=== PATIENT | female | born 1955 | race Caucasian/White ===

== ENCOUNTER 2018-06-05 06:17 | Day surgery (SDC) | payer BC, SELFPAY ==
--- NOTE | 2018-06-03 09:06 | W.PIPPEYE ---
History of Present Illness Chief Complaint: Progressive decreased vision, right eye Narrative: The patient is a 62-year-old lady with history of progressive decreased vision in both eyes at both distance and near, right eye worse than left. She has significant significant difficulty reading and trouble focusing. On examination she was noted to have moderate nuclear and cortical cataracts in both eyes with posterior subcapsular cataract of the right eye with corrected visual acuity of 20/100 in the right eye. The option of cataract surgery was offered to the patient and she wished to proceed. NOTE: The Chief Complaint, HPI, Past Medical History, Past Surgical History, Family History, Social History, Medications, and complete Ophthalmic Exam with detailed Assessment and Plan have already been documented in the patient's outpatient ophthalmic record and are not covered again in detail here. [facility] Social History Smoking/Tobacco Use Status: Never Surgical History Abdominal hysterectomy Cholecystectomy Ligation of fallopian tube Meds Home Medications Medication Instructions Recorded Confirmed Type albuterol sulfate [Ventolin HFA] 2 puff INHALATION PRN PRN 09/24/16 06/01/18 History fluticasone-salmeterol [Advair HFA] 2 puff INHALATION BID PRN PRN 09/24/16 06/01/18 History magnesium oxide 250 mg PO DAILY PRN 09/24/16 06/01/18 History multivitamin 1 ea PO DAILY 09/24/16 06/01/18 History loratadine 10 mg PO DAILY PRN PRN 08/24/17 06/01/18 History acetaminophen [Masophen] 1,000 mg PO TID PRN #120 tablet 09/02/17 06/01/18 Rx naloxone [Narcan] 4 mg NS DIRECTED #2 spray 09/02/17 09/04/17 Rx B complex with C#20-folic acid 1 cap PO DAILY 06/01/18 06/01/18 History ibuprofen 200 - 400 mg PO PRN PRN 06/01/18 06/01/18 History Allergies Allergy/AdvReac Type Severity Reaction Status Date / Time Penicillins Allergy Intermediate Skin Rash Unverified 06/01/18 09:34 codeine AdvReac Intermediate Nausea Unverified 06/01/18 09:34 Exam OCULAR EXAM:: Visual acuity at distance: Corrected visual acuity right eye 20/100, left eye 20/20 Pupils: Pupils equal, round, and reactive without afferent pupillary defect IOP: 13 OD 12 OS Extraocular Motility: Normal Pertinent Slit Lamp Findings: Significant for pupils dilating to 6 mm OU. 1+ cortical cataract with significant anterior cortical opacity is present in the right eye with 2+ posterior subcapsular cataract. The left eye shows 1+ nuclear and cortical cataract. Dilated Funduscopic Examination: Disc cupping is 0.3 OU with good color. Normal fundus BRIGHTNESS ACUITY TESTING (BAT):: Off right eye 20/100 Low: 20/60 Medium: 20/200 High: Less than 20/400 Assessment and Plan (1) Posterior subcapsular age-related cataract, right eye: Current visit: No Status: Acute Assessment: Visually significant cataract, right eye. Plan: Cataract extraction with intraocular lens implantation, right eye (2) Cortical cataract of right eye: Current visit: No Status: Acute Assessment: Visually significant cataract, right eye. Plan: Cataract extraction with intraocular lens implantation, right eye Note: NOTE:: The details of the planned surgery, including the risks, indications,limitations,expectations,outcome and possible complications were explained to the patient. The patient understands the complications including, but not limited to: infection, hemorrhage, posterior dislocation of the lens or nuclear fragments which may require the intervention of a vitreoretinal surgeon, possible loss of the eye, or from anesthetic complications. The patient has been made aware of the option of not having surgery, that vision following surgery may not be equal to that prior to surgery, and that the planned surgery may not achieve the intended results. Following this discussion, which the patient appeared to understand, the patient wishes to proceed with cataract surgery with lens implantation of the affected eye to improve and maximize vision.
--- NOTE | 2018-06-03 09:11 | POEE_ITS ---
History of Present Illness Chief Complaint: Progressive decreased vision, right eye Narrative: The patient is a 62-year-old lady with history of progressive decreased vision in both eyes at both distance and near, right eye worse than left. She has significant significant difficulty reading and trouble focusing. On examination she was noted to have moderate nuclear and cortical cataracts in both eyes with posterior subcapsular cataract of the right eye with corrected visual acuity of 20/100 in the right eye. The option of cataract surgery was offered to the patient and she wished to proceed. NOTE: The Chief Complaint, HPI, Past Medical History, Past Surgical History, Family History, Social History, Medications, and complete Ophthalmic Exam with detailed Assessment and Plan have already been documented in the patient's outpatient ophthalmic record and are not covered again in detail here. [facility] Social History Smoking/Tobacco Use Status: Never Surgical History Abdominal hysterectomy Cholecystectomy Ligation of fallopian tube Meds Home Medications Medication Instructions Recorded Confirmed Type albuterol sulfate [Ventolin HFA] 2 puff INHALATION PRN PRN 09/24/16 06/01/18 History fluticasone-salmeterol [Advair HFA] 2 puff INHALATION BID PRN PRN 09/24/1606/01 History magnesium oxide 250 mg PO DAILY PRN 09/24/16 06/01/18 History multivitamin 1 ea PO DAILY 09/24/16 06/01/18 History loratadine 10 mg PO DAILY PRN PRN 08/24/17 06/01/18 History acetaminophen [Masophen] 1,000 mg PO TID PRN #120 tablet 09/02/17 06/01/18 Rx naloxone [Narcan] 4 mg NS DIRECTED #2 spray 09/02/17 09/04/17 Rx B complex with C#20-folic acid 1 cap PO DAILY 06/01/18 06/01/18 History ibuprofen 200 - 400 mg PO PRN PRN 06/01/18 06/01/18 History Allergies Allergy/AdvReac Type Severity Reaction Status Date / Time Penicillins Allergy Intermediate Skin Rash Unverified 06/01/18 09:34 codeine AdvReac Intermediate Nausea Unverified 06/01/18 09:34 Exam OCULAR EXAM:: Visual acuity at distance: Corrected visual acuity right eye 20/ 100, left eye 20/20 Pupils: Pupils equal, round, and reactive without afferent pupillary defect IOP: 13 OD 12 OS Extraocular Motility: Normal Pertinent Slit Lamp Findings: Significant for pupils dilating to 6 mm OU. 1+ cortical cataract with significant anterior cortical opacity is present in the right eye with 2+ posterior subcapsular cataract. The left eye shows 1+ nuclear and cortical cataract. Dilated Funduscopic Examination: Disc cupping is 0.3 OU with good color. Normal fundus BRIGHTNESS ACUITY TESTING (BAT):: Off right eye 20/100 Low: 20/60 Medium: 20/200 High: Less than 20/400 Assessment and Plan (1) Posterior subcapsular age-related cataract, right eye: Current visit: No Status: Acute Assessment: Visually significant cataract, right eye. Plan: Cataract extraction with intraocular lens implantation, right eye (2) Cortical cataract of right eye: Current visit: No Status: Acute Assessment: Visually significant cataract, right eye. Plan: Cataract extraction with intraocular lens implantation, right eye Note: NOTE:: The details of the planned surgery, including the risks, indications, limitations,expectations,outcome and possible complications were explained to the patient. The patient understands the complications including, but not limited to: infection, hemorrhage, posterior dislocation of the lens or nuclear fragments which may require the intervention of a vitreoretinal surgeon, possible loss of the eye, or from anesthetic complications. The patient has been made aware of the option of not having surgery, that vision following surgery may not be equal to that prior to surgery, and that the planned surgery may not achieve the intended results. Following this discussion, which the patient appeared to understand, the patient wishes to proceed with cataract surgery with lens implantation of the affected eye to improve and maximize vision.
[2018-06-05 06:33] VITALS: BP 149/88; PULSE 56; RESP 18; TEMP 36.7; O2SAT 98
[2018-06-05] MEDS: Lidocaine 2% Jelly 6 ML SYR (07:31)
[2018-06-05] MEDS: Lidocaine 1% Pres-Free 5 ML VIAL (07:32)
[2018-06-05] MEDS: Balanced Salt Soln.-PLUS 500 ML BAG (07:33)
[2018-06-05] MEDS: Povidone-Iodine Ophth 30 ML BTL ×2 (07:33→07:56)
--- NOTE | 2018-06-05 08:02 | W.PM.DSUDISC ---
Discharge Plan Discharge Details Attending Provider: Oscar Guerin Primary Care Provider: Favian Braga Home Meds and New Rx's Prescriptions: No Action magnesium oxide 250 MG tablet 250 mg PO DAILY RF: 0 loratadine 10 MG tablet 10 mg PO DAILY PRN PRNRF: 0 acetaminophen [Masophen] 500 MG tablet 1,000 mg PO TID PRNQty: 120 RF: 1 naloxone [Narcan] 4 MG spray,non-aerosol 4 mg NS DIRECTED Qty: 2 RF: 0 albuterol sulfate [Ventolin HFA] 8 GM HFA aerosol inhaler 2 puff Inhalation PRN PRNRF: 0 multivitamin 1 EACH capsule 1 ea PO DAILY RF: 0 fluticasone-salmeterol [Advair HFA] 12 GM HFA aerosol inhaler 2 puff Inhalation BID PRN PRNRF: 0 ibuprofen 200 mg Capsule 200 - 400 mg PO PRN PRNRF: 0 B complex with C#20-folic acid 1 mg Capsule 1 cap PO DAILY RF: 0 Discharge Instructions Stand Alone Forms: Post-op Topical Cataract, Milan Kulkarni (DSU) DS: Diagnosis Discharge Diagnosis (1) Posterior subcapsular age-related cataract, right eye: Status: Resolved (2) Cortical cataract of right eye: Status: Resolved
--- NOTE | 2018-06-05 08:03 | W.PM.OP ---
Date of service: 06/05/18 Time of Service: 08:03 Operative Note PRE-OP DIAGNOSIS: Cataract, right eye POST-OP DIAGNOSIS: same SURGEON: Oscar Guerin ANESTHESIA: MAC and local (sub-tenon's anesthetic infiltration) PATHOLOGY: none sent COMPLICATIONS: None Patient was transported to: same day Patient's condition: stable Implants: Joaquim and Joaquim [employer] / [employer] Tecnis ZCB00 Indications: Progressive decreased vision due to cataract, right eye Procedure Description: [] CATARACT SURGERY OPERATIVE REPORT PREOPERATIVE DIAGNOSIS: Cortical/posterior subcapsular cataract, right eye, symptomatic POSTOPERATIVE DIAGNOSIS: Same OPERATION: Cataract extraction using phacoemulsification with posterior chamber intraocular lens implant, right eye. IOL: IOL Regional Owner Operator Truck Driver/Model: J&J Vision / PHUONG Tecnis ZCB00 IOL Power: + +21.0 diopters IOL Serial Number: [id number] Optic Diameter: 6.0mm Haptic/Overall Diameter: 13.0mm PHACO INFO: Nakul Exelonixon Vision System with OZil and Active Fluidics Cumulative Dispersed Energy (CDE): 9.68 seconds SURGEON: Oscar Guerin MD, VERONICA ANESTHESIA: Monitored Anesthesia Care (MAC), with local sub-tenon's anesthetic infiltration COMPLICATIONS: None SPECIMENS: None INDICATIONS FOR PROCEDURE: The patient is a 62-year-old lady who presented with complaints of progressive decreased vision in her right eye. She was noted to have a dense posterior subcapsular cataract with moderate nuclear and cortical cataract with visual acuity of 20/100 in the right eye. The option of cataract surgery was offered to the patient and she wished to proceed. PROCEDURE: The correct surgical eye was identified and marked as the right eye and the pupil was dilated in the preoperative area using mydriatics, cycloplegics, and NSAIDS (except in aspirin allergic patients). The dilated pupil size was 7.5 mm. Oral sedation was administered in the form of an Imprimis MKO Melt (midazolam 3mg/ketamine 25mg/ondansetron 2mg). The patient was brought to the operating room where cardiopulmonary monitoring was instituted and surgical time-out was performed, confirming the correct operative eye and IOL power. Topical anesthesia was administered and ophthalmic povidone-iodine 5% was instilled into the conjunctival fornices. Lidocaine gel was applied to the cornea and the jules-ocular area was prepped with Betadine 10% solution and draped in the usual sterile fashion for intraocular surgery. Steri-strips were used to cover the lashes and lid margins and an adhesive eye drape was placed. Care was taken to isolate the lashes and lid margins under the Steri-strips and adhesive eye drape. A lid speculum was placed between the lids of the operative eye and the Margarita-Yesika operating microscope was maneuvered into position. Kirsty scissors were then used to make a conjunctival buttonhole approximately 6mm posterior to the limbus in the inferonasal quadrant. Blunt dissection was carried out to expose bare sclera, and a blunt-tipped sub-tenon?s anesthesia cannula was introduced and passed posteriorly along the globe where non-preserved plain lidocaine was injected into posterior sub-Tenon?s space. A sideport knife was used to make a paracentesis port at the 7:00 postion and the anterior chamber was filled with Healon GV. A 2.4mm keratome knife was used to create a half-thickness groove at the limbus and then to construct a three-plane near-clear corneal tunnel extending 2.0mm into clear cornea at the 10:00 position. A flap was raised on the anterior capsule and capsulorhexis forceps were used to complete a continuous curvilinear capsulorhexis of 5.0 mm. Balanced salt solution was then used to perform cortical cleaving hydrodissection and nuclear hydrodelineation until the lens could be freely rotated within the capsular bag. The lens nucleus was then disassembled and removed within the capsular bag and iris plane using phacoemulsification. Residual cortical material was removed using the 45-degree angled silicone I/A tip with 0.3mm port. The posterior capsule was carefully polished to remove as much residual lens epithelial cells as safely possible. Extensive capsular polishing was undertaken. There was some residual posterior subcapsular plaque in the 2:00 and 10 o'clock position outside of the visual axis which could not be safely removed. The capsular bag was then inflated and the anterior chamber deepened with viscoelastic. The lens implant described above was inserted into the capsular bag using the PHUONG [place] Injector. A Kuglen hook was used to dial the IOL into position. Residual viscoelastic was then removed first from posterior to the IOL, then from the anterior chamber using the I/A handpiece. The lens implant was noted to center nicely within the capsular bag. The incisions were stromally hydrated, and the anterior chamber was reformed using BSS. Then 0.4cc of moxifloxacin 1.5mg/ml were injected into the capsular bag and anterior chamber. The incisions were checked with a Weck spear and found to be secure. Several drops of ophthalmic povidone-iodine 5% were then applied to the eye followed by two drops of Imprimis combination moxifloxacin/dexamethasone solution. The drapes were removed and a clear plastic protective eye shield was placed over the eye. The patient was then returned to Same Day Surgery in stable condition.
--- NOTE | 2018-06-05 08:06 | ROE_ITS ---
Date of service: 06/05/18 Time of Service: 08:03 Operative Note PRE-OP DIAGNOSIS: Cataract, right eye POST-OP DIAGNOSIS: same SURGEON: Oscar Guerin ANESTHESIA: MAC and local (sub-tenon's anesthetic infiltration) PATHOLOGY: none sent COMPLICATIONS: None Patient was transported to: same day Patient's condition: stable Implants: Joaquim and Joaquim Vision / [employer] Tecnis ZCB00 Indications: Progressive decreased vision due to cataract, right eye Procedure Description: [] CATARACT SURGERY OPERATIVE REPORT PREOPERATIVE DIAGNOSIS: Cortical/posterior subcapsular cataract, right eye, symptomatic POSTOPERATIVE DIAGNOSIS: Same OPERATION: Cataract extraction using phacoemulsification with posterior chamber intraocular lens implant, right eye. IOL: IOL Head Of Strategy/Model: J&J Vision / PHUONG Tecnis ZCB00 IOL Power: + +21.0 diopters IOL Serial Number: [id number] Optic Diameter: 6.0mm Haptic/Overall Diameter: 13.0mm PHACO INFO: Nakul Silver Curveon Vision System with OZil and Active Fluidics Cumulative Dispersed Energy (CDE): 9.68 seconds SURGEON: Oscar Guerin MD, VERONICA ANESTHESIA: Monitored Anesthesia Care (MAC), with local sub-tenon's anesthetic infiltration COMPLICATIONS: None SPECIMENS: None INDICATIONS FOR PROCEDURE: The patient is a 62-year-old lady who presented with complaints of progressive decreased vision in her right eye. She was noted to have a dense posterior subcapsular cataract with moderate nuclear and cortical cataract with visual acuity of 20/100 in the right eye. The option of cataract surgery was offered to the patient and she wished to proceed. PROCEDURE: The correct surgical eye was identified and marked as the right eye and the pupil was dilated in the preoperative area using mydriatics, cycloplegics, and NSAIDS (except in aspirin allergic patients). The dilated pupil size was 7.5 mm. Oral sedation was administered in the form of an Imprimis MKO Melt (midazolam 3mg/ketamine 25mg/ondansetron 2mg). The patient was brought to the operating room where cardiopulmonary monitoring was instituted and surgical time-out was performed, confirming the correct operative eye and IOL power. Topical anesthesia was administered and ophthalmic povidone-iodine 5% was instilled into the conjunctival fornices. Lidocaine gel was applied to the cornea and the jules-ocular area was prepped with Betadine 10% solution and draped in the usual sterile fashion for intraocular surgery. Steri-strips were used to cover the lashes and lid margins and an adhesive eye drape was placed. Care was taken to isolate the lashes and lid margins under the Steri-strips and adhesive eye drape. A lid speculum was placed between the lids of the operative eye and the Margarita-Yesika operating microscope was maneuvered into position. Kirsty scissors were then used to make a conjunctival buttonhole approximately 6mm posterior to the limbus in the inferonasal quadrant. Blunt dissection was carried out to expose bare sclera, and a blunt-tipped sub-tenon? s anesthesia cannula was introduced and passed posteriorly along the globe where non-preserved plain lidocaine was injected into posterior sub-Tenon?s space. A sideport knife was used to make a paracentesis port at the 7:00 postion and the anterior chamber was filled with Healon GV. A 2.4mm keratome knife was used to create a half-thickness groove at the limbus and then to construct a three-plane near-clear corneal tunnel extending 2.0mm into clear cornea at the 10:00 position. A flap was raised on the anterior capsule and capsulorhexis forceps were used to complete a continuous curvilinear capsulorhexis of 5.0 mm. Balanced salt solution was then used to perform cortical cleaving hydrodissection and nuclear hydrodelineation until the lens could be freely rotated within the capsular bag. The lens nucleus was then disassembled and removed within the capsular bag and iris plane using phacoemulsification. Residual cortical material was removed using the 45-degree angled silicone I/A tip with 0.3mm port. The posterior capsule was carefully polished to remove as much residual lens epithelial cells as safely possible. Extensive capsular polishing was undertaken. There was some residual posterior subcapsular plaque in the 2:00 and 10 o'clock position outside of the visual axis which could not be safely removed. The capsular bag was then inflated and the anterior chamber deepened with viscoelastic. The lens implant described above was inserted into the capsular bag using the PHUONG [place] Injector. A Kuglen hook was used to dial the IOL into position. Residual viscoelastic was then removed first from posterior to the IOL, then from the anterior chamber using the I/A handpiece. The lens implant was noted to center nicely within the capsular bag. The incisions were stromally hydrated , and the anterior chamber was reformed using BSS. Then 0.4cc of moxifloxacin 1.5mg/ml were injected into the capsular bag and anterior chamber. The incisions were checked with a Weck spear and found to be secure. Several drops of ophthalmic povidone-iodine 5% were then applied to the eye followed by two drops of Imprimis combination moxifloxacin/dexamethasone solution. The drapes were removed and a clear plastic protective eye shield was placed over the eye. The patient was then returned to Same Day Surgery in stable condition.
[2018-06-05 08:25] VITALS: BP 132/86; PULSE 64; RESP 16; TEMP 36.3; O2SAT 96
== END 2018-06-05 08:32 ==
LOC: SUR 06:17
PROVIDERS: PCP Internal Medicine; Visit Provider Ophthalmology
PROC: (CPT 66984; principal; 2018-06-05 07:30)
DX: H25.011 Cortical age-related cataract, right eye (principal); H25.041 Posterior subcapsular polar age-related cataract, right eye
CPT/HCPCS: 66984; V2632

== ENCOUNTER 2018-08-08 22:18 | Outpatient (REF) | payer BC, SELFPAY ==
[2018-08-08 22:39] LABS: ALT 29 U/L (12-78); AST 23 U/L (15-37); BUN 26 mg/dL (7-18); CREATININE 0.83 mg/dL (0.55-1.02); Calcium 9.6 mg/dL (8.5-10.1); Chloride 100 mmol/L (98-107); Cholesterol 182 mg/dL (50-200); Glucose 76 mg/dL (70-100); HDL Cholesterol 57 mg/dL (40-60); LDL CHOLESTEROL 113 mg/dL (<100); Potassium 4.1 mmol/L (3.5-5.1); Sodium 138 mmol/L (136-145); Triglyceride 64 mg/dL (30-150)
== END 2018-08-08 22:38 ==
LOC: NCHCN 22:18
PROVIDERS: PCP Internal Medicine; Visit Provider Nurse Practitioner Family
DX: Z00.00 Encounter for general adult medical examination without abnormal findings (principal); Z13.228 Encounter for screening for other metabolic disorders; Z13.220 Encounter for screening for lipoid disorders
CPT/HCPCS: 80048; 80061; 83721; 84450; 84460

== ENCOUNTER 2018-08-16 00:48 | Outpatient (CLI) | payer BC, SELFPAY ==
--- NOTE | 2018-08-16 16:30 | DI.MAMMO_ITS ---
SYMPTOMS/DIAGNOSIS: SCREENING MAMMOGRAMS: Mammograms were interpreted according to the usual protocol including computer analysis with CAD system, tomosynthesis and C view imaging. Comparison is with the prior examinations. No suspicious masses or microcalcifications are seen. There is no definite evidence of malignancy. IMPRESSION: Negative mammogram. Routine screening is recommended. Category 1, breast density B. MQSA ASSESSMENT OF FINDINGS: Negative. Category 1. Patient will receive a letter notifying them of these results. BI-RADS category B. There are scattered areas of fibroglandular density.
== END 2018-08-16 01:08 ==
PROVIDERS: PCP Internal Medicine; Visit Provider Nurse Practitioner Family
DX: Z12.31 Encounter for screening mammogram for malignant neoplasm of breast (principal)
CPT/HCPCS: 77063; 77067

== ENCOUNTER 2018-08-23 10:34 | Outpatient (CLI) | payer BC, SELFPAY ==
--- NOTE | 2018-08-23 10:24 | DI.RAD_ITS ---
SYMPTOMS/DIAGNOSIS: 1 YR F/U RT TKR RIGHT KNEE: The patient is status post right TKR. The prosthesis and surrounding bone intact with no interval change when compared with the prior study of 09/16/17.
== END 2018-08-23 10:54 ==
PROVIDERS: PCP Internal Medicine; Visit Provider Student in an Organized Health Care Education/Training Program
DX: M17.11 Unilateral primary osteoarthritis, right knee (principal); Z96.651 Presence of right artificial knee joint; Z47.1 Aftercare following joint replacement surgery
CPT/HCPCS: 73560

== ENCOUNTER 2019-01-09 13:53 | Outpatient (REF) | payer BC, SELFPAY | END 2019-01-09 14:13 | LOC: NCHCN 13:53 | PROVIDERS: PCP Internal Medicine; Visit Provider Nurse Practitioner Family | DX: N89.8 Other specified noninflammatory disorders of vagina (principal) | CPT/HCPCS: 87480; 87510; 87660 ==

== ENCOUNTER 2020-07-10 13:51 | Outpatient (REF) | payer MEDICARE, BC, SELFPAY ==
[2020-07-10 21:43] LABS: HCT 43.6 % (36.0-46.0); HGB 14.3 g/dL (11.2-15.7); MCH 30.4 pg (27.0-33.0); MCHC 32.8 % (32.0-36.0); MCV 92.6 fL (80-95); MPV 10.2 fL (8.0-11.0); Platelet Count 380 10^3/uL (130-400); RBC 4.71 10^6/uL (3.93-5.22); RDW 12.8 % (11.7-14.6); RDW-SD 43.8 fL; WBC 8.17 10^3/uL (4.4-10.8)
[2020-07-10 22:16] LABS: ALT 22 U/L (14-59); AST 16 U/L (15-37); Calculated LDL 124 mg/dL (<100); Cholesterol 196 mg/dL (<200); HDL Cholesterol 62 mg/dL (40-60); Triglyceride 50 mg/dL (<150)
== END 2020-07-10 14:11 ==
LOC: NCHCN 13:51
PROVIDERS: PCP Internal Medicine; Visit Provider Nurse Practitioner Family
DX: Z00.00 Encounter for general adult medical examination without abnormal findings (principal)
CPT/HCPCS: 80061; 85027; 84450; 84460

== ENCOUNTER 2020-08-06 08:51 | Emergency (ER) | payer MEDICARE, BC, SELFPAY ==
[2020-08-06] VITALS (66 sets, daily range): BP systolic 127–179; BP diastolic 47–90; PULSE 40–56; RESP 7–23; TEMP 36.3; O2SAT 92–100
--- NOTE | 2020-08-06 08:45 | RT.EKG_ITS ---
APPROVED REPORT Exam: Resting ECG Patient Location: E HR:42 bpm ECG Measurements Heart Rate 42 AXIS IL 222 P 47 QRSd 80 QRS -18 QT 509 T 51 QTc 427 Conclusion Sinus bradycardia...rate< 60 Borderline prolonged IL interval...IL >222, V-rate 30- 49 I have reviewed and interpreted ECG and agree with software generated interpretation.
--- NOTE | 2020-08-06 08:52 | ED.GENADUL_ITS ---
Discharge Plan Disposition Patient Disposition: HOME Condition: Improving Discharge Details Clinical Impression: Vomiting and diarrhea, UTI (urinary tract infection), Bradycardia Primary Care Provider: Favian Braga ED Provider: Carissa Nelson Home Meds and New Rx's Prescriptions: Continued magnesium oxide 250 MG tablet 250 mg PO HS RF: 0 acetaminophen [Masophen] 500 MG tablet 1,000 mg PO TID PRNQty: 120 RF: 1 ascorbic acid (vitamin C) [Vitamin C] 500 mg Tablet 500 mg PO DAILY RF: 0 omeprazole 20 mg capsule,delayed release(DR/EC) 20 mg PO Q OTHER DAY RF: 0 vitamin B complex Tablet 1 tab PO DAILY RF: 0 loratadine 10 mg Tablet 10 mg PO DAILY RF: 0 cholecalciferol (vitamin D3) [Vitamin D3] 25 mcg (1,000 unit) Capsule 25 mcg PO DAILY RF: 0 Advair HFA 115-21 mcg/actuation HFA aerosol inhaler 2 puff INHALATION BID RF: 0 albuterol sulfate [Ventolin HFA] 8 GM HFA aerosol inhaler 2 puff Inhalation PRN PRNRF: 0 Advair HFA 12 GM HFA aerosol inhaler 2 puff Inhalation BID PRN PRNRF: 0 ibuprofen 200 mg Capsule 200 - 400 mg PO PRN PRNRF: 0 Discharge Instructions Instructions: Urinary Tract Infection in Women (ED), Acute Nausea and Vomiting (ED), Acute Diarrhea (ED) Additional Instructions: Drink plenty of fluids and get plenty of rest. Take Zofran as needed and directed for nausea and vomiting. Follow-up with your primary care doctor in 1 week for reevaluation and for referral to cardiology for further evaluation of your chronically intermittent bradycardia (low heart rate). Return to the emergency department with any worsening or new concerning symptoms. Discharge Data Discharge Physician: Carissa Nelson Medical Decision Making [id number] -- 64-year-old female with a history of asthma, GERD, cholecystectomy presents for vomiting, diarrhea and lower abdominal pain this morning. Heart rate 40s on arrival. Remainder vitals within normal limits. She is afebrile and appears nontoxic and comfortable. EKG notes a rate of 42, sinus without acute ST-T wave ischemic changes. Differential diagnosis includes acute viral process, electrolyte abnormality, UTI. History and presentation most likely consistent with ACS. Will place an IV, bolus IV fluids, IV Tylenol and Zofran, screening labs, urinalysis and obtain CT chest abdomen pelvis and reassess. 1220 --labs reviewed and note a normal white blood cell count, troponin. Urinalysis could be consistent with a mild UTI. CT chest abdomen and pelvis notes a few mildly prominent central and left-sided small bowel loops are noted. The colon is noted to be collapse. Correlation with any clinical signs of very early bowel obstruction recommended. There is no ascites. Patient feels better and she denies any acute complaints. Heart rate 47. Her heart rate increased appropriately with sitting and standing with orthostatics. Patient evaluated at bedside by Dr. Hackett and does not feel this is consistent with a bowel obstruction and may be viral in nature. Heart rate has remained mid to high 40s to low 50s. Case was initially discussed with hospitalist and we reviewed patient's previous visits and dating back to 2017 she has had a heart rate in the 40s. Patient states she would prefer to go home. She was advised to follow-up with cardiology for further evaluation. Although patient has no urinary symptoms, she did have lower abdominal pain, diarrhea and a questionable mild UTI on urinalysis. She was given 1 dose of fosfomycin p.o. Usual and customary return precautions given prior to discharge. Medical Records Medical records reviewed: Yes I reviewed the patient's medical records. Imaging Data Radiologic Study: Radiologist's impression: CT CHEST/ABD/PEL W CLINICAL HISTORY: bradycardia, vomiting, lower abdominal pain TECHNIQUE: Imaging Protocol: Axial computed tomography images with coronal and sagittal reformatted images were created and reviewed CONTRAST MATERIAL: Intravenous: Omnipaque 350 Contrast volume:100 cc Oral: No oral contrast COMPARISON: No exams were available for comparison FINDINGS: CHEST: Lungs: An there are no confluent infiltrates nor pleural effusions. Minimal increased markings in the right lung base noted. No ominous pulmonary nodules. No significant findings in the trachea and mainstem bronchi. No bronchiectasis. Mediastinum: There is no hilar nor mediastinal adenopathy. No subcarinal adenopathy. No supraclavicular adenopathy. No axillary adenopathy. Visualized thyroid appears unremarkable. Cardiac: Heart size is normal. There is no pericardial effusion. Caliber of the thoracic aorta is within normal limits. No dissection. Retrocardiac hiatal hernia noted which measures 6 centimetres by 3.5 centimetres. Osseous: No significant bony lesions evident ABDOMEN: There is no ascites Liver: No focal hepatic lesions nor dilatation of intrahepatic ducts. Gallbladder and Biliary Tract: The gallbladder surgically absent. CBD is not dilated. Pancreas: Unremarkable. No mass or ductal dilatation. Spleen: Normal size. Subtle area of internal hypodensity, possibly hemangioma. Splenic and portal veins are patent. Adrenals: No masses seen. Kidneys: Normal size, contour and axis. No radiodense stones or obstructive uropathy. No masses seen. Visualization of the urinary bladder is suboptimal due to beam hardening artifact from bilateral hip prostheses. Abdominal Aorta: Not enlarged. No periaortic adenopathy. Anterior abdominal wall: No significant hernia evident. Bowel: The colon is collapsed. There are few minimally prominent left-sided small bowel loops noted which exhibit maximum diameter of 2.7 centimetres.. No free fluid. No pneumatosis. No evidence of appendicitis. No evidence of diverticulitis. PELVIS: Bilateral hip prostheses are noted. Scoliosis convex right noted. No lytic osseous lesions evident. Uterus is surgically absent. There are no abnormal adnexal masses nor free fluid in the pelvis. There is no significant intrapelvic nor inguinal adenopathy. No free fluid in the pelvis. Urinary bladder is upper normal size. Difficult to assess because of bilateral hip prostheses artifact. IMPRESSION: 1. Retrocardiac hiatal hernia noted. No other significant intrathoracic findings. 2. Few mildly prominent central and left-sided small bowel loops are noted. The colon is noted to be collapse. Correlation with any clinical signs of very early bowel obstruction recommended. There is no ascites. 3. The gallbladder surgically absent. The biliary tree is not dilated. 4. Uterus is surgically absent. No abnormal adnexal findings. No free fluid in the pelvis. Lab Data Lab results reviewed: Yes I reviewed the patient's lab results. Labs: 08/06/20 12:52 Urine - Reflex from Ua Urine Culture - Pending Laboratory Tests Range/Units 08/06/20 08/06/20 08/06/20 09:20 09:55 12:52 WBC (4.4-10.8) 10^3/uL 10.30 RBC (3.93-5.22) 10^6/uL 4.61 Hgb (11.2-15.7) g/dL 13.9 Hct (36.0-46.0) % 41.9 MCV (80-95) fL 90.9 MCH (27.0-33.0) pg 30.2 MCHC (32.0-36.0) % 33.2 RDW (11.7-14.6) % 13.4 Plt Count (130-400) 10^3/uL 358 MPV (8.0-11.0) fL 9.6 Immature Gran % 0.3 Neutrophils % 78.4 Lymphocytes % 14.5 Monocytes % 5.1 Eosinophils % 1.1 Basophils % 0.6 Nucleated RBC % % 0 Absolute Neutrophils (1.2-6.7) 10^3/uL 8.08 H Absolute Lymphocytes (1.2-3.4) 10^3/uL 1.49 Absolute Monocytes (0.1-0.8) 10^3/uL 0.53 Absolute Eosinophils (0.0-0.7) 10^3/uL 0.11 Absolute Basophils (0.0-0.2) 10^3/uL 0.06 Sodium (136-145) mmol/L 141 Potassium (3.5-5.1) mmol/L 4.1 Chloride (98-107) mmol/L 106 Carbon Dioxide (21.0-32.0) mmol/L 29.6 Anion Gap (3-11) mmol/L 5.4 BUN (7-18) mg/dL 24 H Creatinine (0.55-1.02) mg/dL 0.93 Estimated GFR/1.73 m2 (mL/min/1.73m2) >= 60.00 Glucose (74-106) mg/dL 103 Calcium (8.5-10.1) mg/dL 9.7 Magnesium (1.8-2.4) mg/dL 2.2 Total Bilirubin (0.2-1.0) mg/dL 0.9 AST (15-37) U/L 20 ALT (14-59) U/L 26 Alkaline Phosphatase (46-116) U/L 70 Troponin I (<0.06) ng/mL < 0.05 Total Protein (6.4-8.2) g/dL 7.9 Albumin (3.4-5.0) g/dL 4.0 Lipase (73-393) U/L 116 Urine Color (Yellow) Yellow Urine Clarity (Clear) Sl cloudy Urine pH (5-8) 7.0 Ur Specific Bradner (1.005-1.025) 1.020 Urine Protein (Negative) mg/dL Negative Urine Ketones (Negative) mg/dL Negative Urine Blood (Negative) Negative Urine Nitrite (Negative) Positive H Urine Bilirubin (Negative) Negative Urine Urobilinogen (Up TO 0.2) EU/dL 0.2 Ur Leukocyte Esterase (Negative) Negative Urine RBC (0-2) HPF 0-2 Urine WBC (0-5) HPF 3-5 Ur Epithelial Cells (Negative) HPF Rare Urine Crystals (Negative) HPF Negative Urine Bacteria (Negative) HPF Many Urine Casts (Negative) LPF Negative Urine Mucus (Negative) Negative Ur Culture Indicated? Yes Urine Glucose (Negative) mg/dL Negative ECG Data Attestation: I personally reviewed and interpreted this ECG (s) as follows: Interpretation: Rate of 42, sinus, no acute ST elevation or depression. [place] 222. QRS 80. QTc 427. HPI General Mode of arrival: EMS . Date/Time Provider Initiated Documentation: 08/06/20 09:14 . Limitations to Documentation: no limitations . Information obtained by: patient . HPI Narrative: Patient is a 64-year-old female with a history of asthma, GERD and cholecystectomy presents for vomiting, diarrhea and lower abdominal pain this morning. Patient states she woke up feeling at her baseline when she took her vitamins, ate cereal and took her loratadine and shortly after became nauseous, diaphoretic and vomited 3 times which mainly consisted of her food. She states this is followed by a 10-minute period of crampy lower abdominal pain followed by a soft brown loose diarrhea. She denies any watery or bloody diarrhea. She states she has contact with her son, [id number], and her grandchildren, last time occurring 5 days ago, but otherwise denies any recent travel, recent known sick contacts or recent known exposure to coronavirus. She denies any fever, chest pain, shortness of breath, cough, sore throat, urinary symptoms, recent antibiotics, recent hospital admission, or recent medication changes. Related Data Home Medications Medication Instructions Recorded Confirmed Advair HFA 2 puff INHALATION BID PRN PRN 09/24/16 08/06/20 albuterol sulfate [Ventolin HFA] 2 puff INHALATION PRN PRN 09/24/16 08/06/20 magnesium oxide 250 mg PO HS 09/24/16 08/06/20 acetaminophen [Masophen] 1,000 mg PO TID PRN #120 tab 09/02/17 08/06/20 ibuprofen 200 - 400 mg PO PRN PRN 06/01/18 08/06/20 Advair HFA 2 puff INHALATION BID 08/06/20 08/06/20 ascorbic acid (vitamin C) [Vitamin 500 mg PO DAILY 08/06/20 08/06/20 C] cholecalciferol (vitamin D3) 25 mcg PO DAILY 08/06/20 08/06/20 [Vitamin D3] loratadine 10 mg PO DAILY 08/06/20 08/06/20 omeprazole 20 mg PO Q OTHER DAY 08/06/20 08/06/20 vitamin B complex 1 tab PO DAILY 08/06/20 08/06/20 Previous Rx's Medication Instructions Recorded acetaminophen [Masophen] 1,000 mg PO TID PRN #120 tab 09/02/17 Allergies Allergy/AdvReac Type Severity Reaction Status Date / Time Penicillins Allergy Intermediate Skin Rash Unverified 08/06/20 10:04 codeine AdvReac Intermediate Nausea Unverified 08/06/20 10:04 Review of Systems All systems reviewed & are unremarkable except as noted in HPI and below Constitutional Constitutional: Reports as per HPI, Denies chills and Denies fever(s) Eyes Eyes: Denies blurry vision ENT Ears, Nose, Mouth, and Throat: Denies dizziness, Denies sore throat and Denies throat swelling Cardiovascular Cardiovascular: Denies chest pain and Denies dyspnea Respiratory Respiratory: Denies cough and Denies dyspnea Gastrointestinal Gastrointestinal: Reports abdominal pain, Reports diarrhea and Reports vomiting Genitourinary Genitourinary: Denies hematuria and Denies dysuria Musculoskeletal Musculoskeletal: Denies back pain and Denies numbness Integumentary/Breasts Skin/Breast: Denies lesions and Denies rash Neurologic Neurologic: Denies dizziness, Denies localized weakness and Denies numbness Allergic/Immunologic Allergic/Immunologic: Denies throat swelling [facility] Medical History Asthma Basal cell carcinoma (BCC) of chest Chondrodermatitis nodularis helicis Cortical cataract of right eye (06/05/18) GERD (gastroesophageal reflux disease) Myalgia Posterior subcapsular age-related cataract, right eye (~06/05/18) Seborrheic keratoses Surgical History Abdominal hysterectomy Cholecystectomy Ligation of fallopian tube Social History Smoking/Tobacco Use Status: Never Smoking risk assessment performed?: Yes Alcohol Intake: current Alcohol Intake frequency: a few times a month Drug use: Never Substance use type: does not use Do you feel safe at home: Yes Do you feel safe in your relationship?: Yes Exam Const General: cooperative, healthy appearing and no acute distress HENMT Head: normal to inspection Face and sinus: normal facial exam Eyes General: appearance normal, both eyes and all related structures EOM: EOM intact bilaterally Neck Neck: normal visual inspection and No submandibular swelling Lymphatic: no lymphadenopathy noted Chest Chest: normal inspection of the chest and no tenderness Resp Effort & Inspection: normal respiratory effort and able to speak in complete sentences Auscultation: clear to auscultation bilaterally Cardio Rate: regular rate Rhythm: regular rhythm GI Inspection: normal to inspection Palpation: soft, not firm, not rigid and nontender Auscultation: normal bowel sounds Skin General skin exam: no rashes or lesions noted Neuro General: patient alert, patient awake and patient oriented x3 Cognition: normal cognition Speech: speech normal Motor: muscle tone normal throughout Sensory Exam: no sensory deficits noted Extrem General: normal to inspection, full ROM, capillary refill normal, no calf tenderness bilaterally and no edema Psych Appearance: grossly normal Mental Status: mental status grossly normal Speech and Movement: speech and movement normal Affect: normal affect
[2020-08-06 09:42] LABS: Abs Immature Grans 0.03 10^3/uL (0.0-0.06); Absolute Basophil Count 0.06 10^3/uL (0.0-0.2); Absolute Eosinophil Count 0.11 10^3/uL (0.0-0.7); Absolute Lymphocyte Count 1.49 10^3/uL (1.2-3.4); Absolute Monocyte Count 0.53 10^3/uL (0.1-0.8); Absolute Neutrophil Count 8.08 10^3/uL (1.2-6.7); Basophils % 0.6; Eosinophils % 1.1; HCT 41.9 % (36.0-46.0); HGB 13.9 g/dL (11.2-15.7); Immature Grans % 0.3; Lymphocytes % 14.5; MCH 30.2 pg (27.0-33.0); MCHC 33.2 % (32.0-36.0); MCV 90.9 fL (80-95); MPV 9.6 fL (8.0-11.0); Monocytes % 5.1; Neutrophils % 78.4; Nucleated RBC 0 %; Platelet Count 358 10^3/uL (130-400); RBC 4.61 10^6/uL (3.93-5.22); RDW 13.4 % (11.7-14.6)
--- NOTE | 2020-08-06 10:00 | DI.CT_ITS ---
EXAM: CT CHEST/ABD/PEL W CLINICAL HISTORY: bradycardia, vomiting, lower abdominal pain TECHNIQUE: Imaging Protocol: Axial computed tomography images with coronal and sagittal reformatted images were created and reviewed CONTRAST MATERIAL: Intravenous: Omnipaque 350 Contrast volume:100 cc Oral: No oral contrast COMPARISON: No exams were available for comparison FINDINGS: CHEST: Lungs: An there are no confluent infiltrates nor pleural effusions. Minimal increased markings in th e right lung base noted. No ominous pulmonary nodules. No significant findings in the trachea and m ainstem bronchi. No bronchiectasis. Mediastinum: There is no hilar nor mediastinal adenopathy. No subcarinal adenopathy. No supraclavic ular adenopathy. No axillary adenopathy. Visualized thyroid appears unremarkable. Cardiac: Heart size is normal. There is no pericardial effusion. Caliber of the thoracic aorta is w ithin normal limits. No dissection. Retrocardiac hiatal hernia noted which measures 6 centimetres b y 3.5 centimetres. Osseous: No significant bony lesions evident ABDOMEN: There is no ascites Liver: No focal hepatic lesions nor dilatation of intrahepatic ducts. Gallbladder and Biliary Tract: The gallbladder surgically absent. CBD is not dilated. Pancreas: Unremarkable. No mass or ductal dilatation. Spleen: Normal size. Subtle area of internal hypodensity, possibly hemangioma. Splenic and portal v eins are patent. Adrenals: No masses seen. Kidneys: Normal size, contour and axis. No radiodense stones or obstructive uropathy. No masses seen. Visualization of the urinary bladder is suboptimal due to beam hardening artifact from bilateral hip prostheses. Abdominal Aorta: Not enlarged. No periaortic adenopathy. Anterior abdominal wall: No significant hernia evident. Bowel: The colon is collapsed. There are few minimally prominent left-sided small bowel loops noted which exhibit maximum diameter of 2.7 centimetres.. No free fluid. No pneumatosis. No evidence of appendicitis. No evidence of diverticulitis. PELVIS: Bilateral hip prostheses are noted. Scoliosis convex right noted. No lytic osseous lesions evident. Uterus is surgically absent. There are no abnormal adnexal masses nor free fluid in the pelvis. The re is no significant intrapelvic nor inguinal adenopathy. No free fluid in the pelvis. Urinary blad aleah is upper normal size. Difficult to assess because of bilateral hip prostheses artifact. IMPRESSION: 1. Retrocardiac hiatal hernia noted. No other significant intrathoracic findings. 2. Few mildly prominent central and left-sided small bowel loops are noted. The colon is noted to be collapse. Correlation with any clinical signs of very early bowel obstruction recommended. There i s no ascites. 3. The gallbladder surgically absent. The biliary tree is not dilated. 4. Uterus is surgically absent. No abnormal adnexal findings. No free fluid in the pelvis. RADIATION DOSE DELIVERED: 1,238.58mGy.cm Total DLP DATA REPOSITORY: All CT scans at this facility are submitted to the National Radiology Data Registry (NRDR) Dose Index Registry (DIR) with the [employer] ([employer]). RADIATION OPTIMIZATION: All CT scans at this facility use at least one of these dose optimization te chniques: automated exposure control; mA and/or kV adjustment per patient size (includes targeted exa ms where dose is matched to clinical indication); or iterative reconstruction.
[2020-08-06 10:19] LABS: ALT 26 U/L (14-59); AST 20 U/L (15-37); Alkaline Phosphatase 70 U/L (46-116); Anion Gap 5.4 mmol/L (3-11); BUN 24 mg/dL (7-18); Bilirubin, Total 0.9 mg/dL (0.2-1.0); CO2 29.6 mmol/L (21.0-32.0); CREATININE 0.93 mg/dL (0.55-1.02); Calcium 9.7 mg/dL (8.5-10.1); Chloride 106 mmol/L (98-107); Glucose 103 mg/dL (74-106); Lipase 116 U/L (73-393); Magnesium 2.2 mg/dL (1.8-2.4); Potassium 4.1 mmol/L (3.5-5.1); Sodium 141 mmol/L (136-145); Total Protein 7.9 g/dL (6.4-8.2)
[2020-08-06 10:22] LABS: Troponin I < 0.05 ng/mL (<0.06)
[2020-08-06] MEDS: ACETAMINOPHEN 1,000 MG/100 ML BTL 400 MG IVPB (10:28)
[2020-08-06] MEDS: Ondansetron 4 MG/2 ML VIAL IVP (10:28)
[2020-08-06] MEDS: Omnipaque 350 MG/ML 100 ML BTL IJ (11:50)
[2020-08-06] MEDS: Normal Saline Flush 10 ML SYR IVP (11:53)
[2020-08-06] MEDS: Normal Saline - Diluent 50 ML VIAL IV (11:53)
[2020-08-06 12:57] LABS: Bilirubin Negative (Negative); Blood Negative (Negative); Clarity Sl Cloudy (Clear); Glucose Negative (Negative); Ketones Negative (Negative); Leukocyte Esterase Negative (Negative); Nitrite Positive (Negative); Urobilinogen 0.2 EU/dL (Up TO 0.2)
[2020-08-06 13:14] LABS: Bacteria Many HPF (Negative); C & S Indicated? Yes; Casts Negative LPF (Negative); Crystals Negative HPF (Negative); Epithelial Cells Rare HPF (Negative); Mucus Negative (Negative); RBC 0-2 HPF (0-2)
--- NOTE | 2020-08-06 14:10 | W.SURGCON ---
Date of service: 08/06/20 Time of Service: 14:10 Assessment and Plan Assessment and plan (1) Vomiting and diarrhea: Status: Acute Assessment and plan: I suspect the patient has some gastroenteritis. She has had no abdominal pain since her one episode of diarrhea. She is not nauseated and has had no further vomiting On exam her abdomen is soft and NTTP Discussed findings with patient. Recommend clear liquid diet x 24 hours, then AVERY diet x 24 hours then back to her regular diet If symptoms worsen again then she should come back to the ER (2) Bradycardia: Status: Acute Assessment and plan: Recommend consult with Hospitalist prior to discharge History of Present Illness Narrative: Patient is a 64-year-old female with a history of asthma, GERD who presented for vomiting, diarrhea and lower abdominal pain this morning. Patient states she woke up feeling at her baseline when she took her vitamins, ate cereal and took her loratadine and shortly after became nauseous, diaphoretic and vomited 3 times which mainly consisted of her food. She states this is followed by a 10-minute period of crampy lower abdominal pain followed by a soft brown loose diarrhea. She denies any watery or bloody diarrhea. She states she has contact with her son, [id number], and her grandchildren, last time occurring 5 days ago, but otherwise denies any recent travel, recent known sick contacts or recent known exposure to coronavirus. She denies any fever, chest pain, shortness of breath, cough, sore throat, urinary symptoms, recent antibiotics, recent hospital admission, or recent medication changes. She states that she took her BP after having the diarrhea and was concerned because her pulse was in the 100's. She normal runs in the mid 50's. She felt shaky and therefore decided to come into the hospital. She denies any abdominal pain. A CT scan was done and showed some minimally dilated loops of small bowel and the colon was decompressed. While sitting here her pulse seems to go from high 48 to low 50's. EXAM: CT CHEST/ABD/PEL W CLINICAL HISTORY: bradycardia, vomiting, lower abdominal pain TECHNIQUE: Imaging Protocol: Axial computed tomography images with coronal and sagittal reformatted images were created and reviewed CONTRAST MATERIAL: Intravenous: Omnipaque 350 Contrast volume:100 cc Oral: No oral contrast COMPARISON: No exams were available for comparison FINDINGS: CHEST: Lungs: An there are no confluent infiltrates nor pleural effusions. Minimal increased markings in the right lung base noted. No ominous pulmonary nodules. No significant findings in the trachea and mainstem bronchi. No bronchiectasis. Mediastinum: There is no hilar nor mediastinal adenopathy. No subcarinal adenopathy. No supraclavicular adenopathy. No axillary adenopathy. Visualized thyroid appears unremarkable. Cardiac: Heart size is normal. There is no pericardial effusion. Caliber of the thoracic aorta is within normal limits. No dissection. Retrocardiac hiatal hernia noted which measures 6 centimetres by 3.5 centimetres. Osseous: No significant bony lesions evident ABDOMEN: There is no ascites Liver: No focal hepatic lesions nor dilatation of intrahepatic ducts. Gallbladder and Biliary Tract: The gallbladder surgically absent. CBD is not dilated. Pancreas: Unremarkable. No mass or ductal dilatation. Spleen: Normal size. Subtle area of internal hypodensity, possibly hemangioma. Splenic and portal veins are patent. Adrenals: No masses seen. Kidneys: Normal size, contour and axis. No radiodense stones or obstructive uropathy. No masses seen. Visualization of the urinary bladder is suboptimal due to beam hardening artifact from bilateral hip prostheses. Abdominal Aorta: Not enlarged. No periaortic adenopathy. Anterior abdominal wall: No significant hernia evident. Bowel: The colon is collapsed. There are few minimally prominent left-sided small bowel loops noted which exhibit maximum diameter of 2.7 centimetres.. No free fluid. No pneumatosis. No evidence of appendicitis. No evidence of diverticulitis. PELVIS: Bilateral hip prostheses are noted. Scoliosis convex right noted. No lytic osseous lesions evident. Uterus is surgically absent. There are no abnormal adnexal masses nor free fluid in the pelvis. There is no significant intrapelvic nor inguinal adenopathy. No free fluid in the pelvis. Urinary bladder is upper normal size. Difficult to assess because of bilateral hip prostheses artifact. IMPRESSION: 1. Retrocardiac hiatal hernia noted. No other significant intrathoracic findings. 2. Few mildly prominent central and left-sided small bowel loops are noted. The colon is noted to be collapse. Correlation with any clinical signs of very early bowel obstruction recommended. There is no ascites. 3. The gallbladder surgically absent. The biliary tree is not dilated. 4. Uterus is surgically absent. No abnormal adnexal findings. No free fluid in the pelvis. Consults Consult date: 08/06/20 Requesting physician: Carissa Nelson Review of Systems Constitutional Constitutional: Denies fever(s), Denies headache(s) and Denies poor appetite Eyes Eyes: Denies change in vision ENT Ears, Nose, Mouth, and Throat: Denies headache(s) and Denies hoarseness Cardiovascular Cardiovascular: Denies chest pain, Denies irregular heart rhythm, Denies palpitations and Denies dyspnea Respiratory Respiratory: Denies cough and Denies dyspnea Gastrointestinal Gastrointestinal: Reports as per HPI Genitourinary Genitourinary: Reports system reviewed and no additional complaints, except as documented Musculoskeletal Musculoskeletal: Reports system reviewed and no additional complaints, except as documented Integumentary/Breasts Skin/Breast: Reports system reviewed and no additional complaints, except as documented Neurologic Neurologic: Reports system reviewed and no additional complaints, except as documented and Denies headache(s) Psychiatric Psychiatric: Reports system reviewed and no additional complaints, except as documented Endocrine Endocrine: Reports system reviewed and no additional complaints, except as documented and Denies palpitations Hematologic/Lymphatic Hematologic/Lymphatic: Reports system reviewed and no additional complaints, except as documented PFSH Medical History Asthma Basal cell carcinoma (BCC) of chest Chondrodermatitis nodularis helicis Cortical cataract of right eye (06/05/18) GERD (gastroesophageal reflux disease) Myalgia Posterior subcapsular age-related cataract, right eye (~06/05/18) Seborrheic keratoses Surgical History Abdominal hysterectomy Cholecystectomy Ligation of fallopian tube Social History Smoking/Tobacco Use Status: Never Smoking risk assessment performed?: Yes Alcohol Intake: current Alcohol Intake frequency: a few times a month Drug use: Never Substance use type: does not use Do you feel safe at home: Yes Do you feel safe in your relationship?: Yes Exam Const General: cooperative, comfortable and no acute distress Orientation: alert and oriented x3 HENMT Head: normocephalic and atraumatic Eyes Pupils: PERRL Resp Effort & Inspection: normal respiratory effort Auscultation: clear to auscultation bilaterally Cardio Rate: regular rate Rhythm: regular rhythm Heart Sounds: no gallops, no murmurs and no rubs GI Inspection: normal to inspection Palpation: soft, no hepatosplenomegaly and nontender Rectal Exam - female: deferred Results Last Vital Signs Temp 97.3 F L 08/06/20 09:40 Pulse 46 L 08/06/20 14:01 Resp 14 08/06/20 14:01 BP 152/76 H 08/06/20 14:01 Pulse Ox 96 08/06/20 13:31 Labs Result diagrams: 08/06/20 09:20 08/06/20 09:55 Labs: Laboratory Results - last 24 hr 08/06/20 08/06/20 08/06/20 09:20 09:55 12:52 WBC 10.30 RBC 4.61 Hgb 13.9 Hct 41.9 MCV 90.9 MCH 30.2 MCHC 33.2 RDW 13.4 Plt Count 358 MPV 9.6 Immature Gran % 0.3 Neutrophils % 78.4 Lymphocytes % 14.5 Monocytes % 5.1 Eosinophils % 1.1 Basophils % 0.6 Nucleated RBC % 0 Absolute Neutrophils 8.08 H Absolute Lymphocytes 1.49 Absolute Monocytes 0.53 Absolute Eosinophils 0.11 Absolute Basophils 0.06 Sodium 141 Potassium 4.1 Chloride 106 Carbon Dioxide 29.6 Anion Gap 5.4 BUN 24 H Creatinine 0.93 Estimated GFR/1.73 m2 >= 60.00 Glucose 103 Calcium 9.7 Magnesium 2.2 Total Bilirubin 0.9 AST 20 ALT 26 Alkaline Phosphatase 70 Troponin I < 0.05 Total Protein 7.9 Albumin 4.0 Lipase 116 Urine Color Yellow Urine Clarity Sl cloudy Urine pH 7.0 Ur Specific [place] 1.020 Urine Protein Negative Urine Ketones Negative Urine Blood Negative Urine Nitrite Positive H Urine Bilirubin Negative Urine Urobilinogen 0.2 Ur Leukocyte Esterase Negative Urine RBC 0-2 Urine WBC 3-5 Ur Epithelial Cells Rare Urine Crystals Negative Urine Bacteria Many Urine Casts Negative Urine Mucus Negative Ur Culture Indicated? Yes Urine Glucose Negative
[2020-08-06] MEDS: Fosfomycin Tromethamine 3 GM PACKET PO (14:45)
[2020-08-06] MEDS: Ondansetron O.D.T. 4 MG TABEF, 3 TABS/BTL PO (14:46)
--- NOTE | 2020-08-08 10:21 | W.ED.FU ---
Date of service: 08/08/20 Time of Service: 10:22 Follow Up Plan: Call made and voicemail left for patient urine culture comes back positive for E. coli she did not get any antibiotics prescribed. At this time, due to penicillin allergy I recommend nitrofurantoin 100 mg twice daily x7 days which is sensitive.
--- NOTE | 2020-08-09 08:59 | W.ED.FU ---
spoke with patient and she states that a provider at her pcp's office prescribed her an antibiotic. She will call if any questions
== END 2020-08-06 15:41 | disposition home or self-care (01) ==
PROVIDERS: Emergency Provider Physician Assistant; PCP Internal Medicine
DX: R00.1 Bradycardia, unspecified (principal); N39.0 Urinary tract infection, site not specified; B96.20 Unspecified Escherichia coli [E. coli] as the cause of diseases classified elsewhere; R11.2 Nausea with vomiting, unspecified; R19.7 Diarrhea, unspecified; R10.30 Lower abdominal pain, unspecified
CPT/HCPCS: 36415; 74177; 80053; 83690; 87077; 93005; 96365; 96375; 99252; 99282; 99285; 71260; 81003; 81015; 83735; 84484; 85025; 87086; 87186; 93010; J0131; J2405; J3490

== ENCOUNTER 2020-09-25 10:38 | Outpatient (CLI) | payer MEDICARE, BC, SELFPAY ==
--- NOTE | 2020-09-25 10:00 | DI.RAD_ITS ---
EXAM: XR KNEE RT 4V AP,LAT,MAMADOU,PAT CLINICAL HISTORY: f/u R knee, new patella pain. TECHNIQUE: 2D digital imaging was performed. COMPARISON: CR RIGHT KNEE 3 VIEWS from 06/22/2017 CR RIGHT KNEE 3 VIEWS from 09/04/2017 CR RIGHT KNEE LIMITED 1 OR 2 VIEW from 09/16/2017 CR XR knee RT 2V AP,lat from 08/23/2018 CR XR KNEE LT 4V AP,LAT,MAMADOU,PAT from 09/25/2020 FINDINGS: BONES: Postoperative changes of a right total knee replacement are again seen. There does appear to be a lateral tilt of the patella. No fracture or dislocation. JOINTS: A moderate joint effusion is present. SOFT TISSUE: Normal. IMPRESSION: Findings of a right total knee replacement as described above. DATA REPOSITORY: RADIATION DOSE DELIVERED:
--- NOTE | 2020-09-25 10:00 | DI.RAD_ITS ---
EXAM: XR KNEE LT 4V AP,LAT,MAMADOU,PAT CLINICAL HISTORY: eval L knee pain. TECHNIQUE: 2D digital imaging was performed. COMPARISON: CR XR knee RT 2V AP,lat from 08/23/2018 FINDINGS: BONES: No acute fracture is present. No bony destructive lesion is seen. JOINTS: The knee is normally aligned. Small joint effusion. SOFT TISSUE: Normal. IMPRESSION: Small joint effusion. DATA REPOSITORY: RADIATION DOSE DELIVERED:
== END 2020-09-25 10:58 ==
PROVIDERS: PCP Internal Medicine; Referring Provider Internal Medicine; Visit Provider Student in an Organized Health Care Education/Training Program
DX: M25.561 Pain in right knee (principal); Z96.651 Presence of right artificial knee joint; M25.562 Pain in left knee; M25.462 Effusion, left knee; M17.12 Unilateral primary osteoarthritis, left knee; M22.8X1 Other disorders of patella, right knee
CPT/HCPCS: 20610; 99213; 73564; J1040

== ENCOUNTER 2020-10-02 01:41 | Outpatient (CLI) | payer MEDICARE, BC, SELFPAY ==
--- NOTE | 2020-10-02 | DI.MAMMO_ITS ---
EXAM: MG MAMMO SCREENING CLINICAL HISTORY: SCREENING,Z12.31. TECHNIQUE: Bilateral full field digital CC and MLO mammographic images were obtained with 3D tomosyn thesis and utilizing computer aided detection (CAD). COMPARISON: Prior mammograms dating back to 2010, the most recent being August 2018. FINDINGS: No new significant radiograph findings in left breast. In the right breast there is a benign-appearing 3 millimeter nodule located anteriorly which is furth er decreased in size. Probably a cyst. No new spiculated masses nor malignant-appearing microcalcif ication groups in either breast. There is no significant architectural distortion nor skin thickenin g-retraction. IMPRESSION: Benign findings. No radiographic evidence of malignancy. BI-RADS Category 2 - Benign Findings Breast Density - Category B - Scattered areas of fibroglandular density Breast density Category C or D implies that the patient has dense breast tissue. Dense breast tissue can make it harder to find cancer on a mammogram. Dense breast tissue is also associated with an incr eased risk of breast cancer. This information about the result of the mammogram report was provided to the patient to raise their awareness. Use this report when you speak with the patient about their risks for breast cancer, which includes their family history. At that time, you may recommend additional screening tests (Ultrasoun d or MRI) as these tests may add significant information. A negative radiographic report should not delay biopsy if a dominant or clinically suspicious mass is present. Up to ten percent of cancers are not identified on mammography. A negative report may reinforce clinical impression. Adenosis and dense breasts may obscure an underlying neoplasm. False positive reports average 6 to 10%. Patient will receive a letter notifying them of these results.
--- NOTE | 2020-10-02 15:50 | DI.DEXA_ITS ---
EXAM: XR DEXA BONE DENSITY W/WO REGINA CLINICAL HISTORY: SCREENING FOR OSTEOPOROSIS IN POSTMENOPAUSAL WOMAN,Z78.0,PREVENTATIVE HEALT TECHNIQUE: Routine DEXA evaluation of the lumbar spine, hip, or forearm. COMPARISON: Prior DEXA scan 2004 FINDINGS: Performed on a [employer] unit. Lateral image: No compression fracture evident. Lumbar Spine total T-score: 0.4 prior T-score 2005 was 1.3 Hip total T-score:Not performed Forearm total T-score: 0.3 IMPRESSION: Bone mineral density measures in the low normal range. Fracture risk is low. Note: Any spine fracture indicates 5x risk for subsequent spine fracture and 2x risk for subsequent h ip fracture. World Health Organization criteria for BMD interpretation classify patients: Normal...... T- Score at or above -1.0 Osteopenic... T- Score between -1.0 and -2.5 Osteoporosis... T-Score at or below -2.5
== END 2020-10-02 02:01 ==
PROVIDERS: PCP Internal Medicine; Visit Provider Nurse Practitioner Family
DX: Z12.31 Encounter for screening mammogram for malignant neoplasm of breast (principal); Z78.0 Asymptomatic menopausal state
CPT/HCPCS: 77063; 77067; 77080

== ENCOUNTER → 2020-10-09 09:01 | Outpatient (BNVA) | payer MEDICARE, BC, SELFPAY | PROVIDERS: PCP Internal Medicine; Referring Provider Internal Medicine; Visit Provider Physical Therapy Assistant | DX: Z12.11 Encounter for screening for malignant neoplasm of colon (principal) ==

== ENCOUNTER 2020-10-21 03:07 | Outpatient (CLI) | payer MEDICARE, BC, SELFPAY ==
[2020-10-22 13:29] LABS: COVID-19 RT-PCR UVMMC Result Negative (Negative)
== END 2020-10-21 03:08 | disposition home or self-care (01) ==
LOC: LBO 03:07
PROVIDERS: PCP Internal Medicine; Visit Provider Surgery
DX: Z20.822 Contact with and (suspected) exposure to COVID-19 (principal); Z01.818 Encounter for other preprocedural examination
CPT/HCPCS: U0003; U0005

== ENCOUNTER 2020-10-27 13:25 | Outpatient (CLI) | payer MEDICARE, BC, SELFPAY | END 2020-10-27 13:26 | disposition home or self-care (01) | LOC: DIORS 13:26 | PROVIDERS: PCP Internal Medicine; Referring Provider Internal Medicine; Visit Provider Physician Assistant Surgical | DX: M17.12 Unilateral primary osteoarthritis, left knee (principal); Z98.890 Other specified postprocedural states | CPT/HCPCS: 99213 ==

== ENCOUNTER 2020-12-17 02:17 | Outpatient (CLI) | payer MEDICARE, BC, SELFPAY ==
--- NOTE | 2020-12-17 07:15 | DI.MRI_ITS ---
EXAM: MR LOWER JOINT LT WO CLINICAL HISTORY: left knee injury,pain, oa lt knee, m17.12 TECHNIQUE: Multiplanar multisequence MRI of the knee was performed. COMPARISON: CR XR KNEE LT 4V AP,LAT,MAMADOU,PAT from 09/25/2020 FINDINGS: EFFUSION: There is a moderate-large size joint effusion. There is also a large Jama cyst in the pop liteal fossa which measures 7 cm length by 1.5 cm AP by 1.7 cm wide. This exhibits internal septatio ns and may be a ruptured given that there is leakage down the thigh muscles. There is no loose intra -articular body evident within the prominent Jama cyst. However, there is a 4.8 by 2.8 millimeter h ypointense focus seen in the posterior aspect of the knee joint on the sagittal images which has the appearance of probable loose intra-articular body. MARROW:There is subarticular edema evident in the lateral tibial plateau, just lateral to the tibial spine. There is also subarticular edema in the posterior aspect of the lateral femoral condyle and w hat appears to be a small osteochondral defect at this level measuring 5 millimeters AP by 3 millimet ers wide by 2 millimeters deep. This may correspond to the loose intra-articular body described abov e. There is some bone edema flame shaped extending upward from this sub posterior subarticular aspec t of the condyle up into the epiphysis and metaphysis. PATELLOFEMORAL COMPARTMENT: The quadriceps tendon is intact. The patellar ligament is intact. There is moderate thinning of the retropatellar cartilage over the lateral facet, and there is focus of subarticular edema in the posterior patella at this level which is above the a quite ower. There is no distinct osteochondral defect evident at this level.There is no intraosseous signal to suggest recent patellar dislocation. There are no patellar retinacular tears. CRUCIATE LIGAMENTS: The anterior cruciate ligament is intact.The posterior cruciate ligament is intac t. MEDIAL COMPARTMENT/MEDIAL MENISCUS: There is some signal abnormality in the medial meniscus but this does not truly violate the articular surface and therefore doubtful for true tear. The meniscal root is intact. There is some increased fluid at the level of the MCL-medial tendons gracilis-sartorius but no high-grade tears.There is signal abnormality of the musculature posteriorly some high-grade si gnal noted in the semimembranosus tendon consistent with partial tearing.. There are no chondral defects, osteochondral defects, subarticular marrow edema, nor osteophytes evid ent. MEDIAL COLLATERAL LIGAMENT: Sprain signal in this region. No full-thickness tear LATERAL COMPARTMENT/LATERAL MENISCUS: There is abnormal signal in the posterior horn of the lateral m eniscus most prominent at the level of the root consistent with tearing. There is some extrusion of the posterior horn. So some extrusion of the anterior horn.Chondral defect seen posteriorly over the lateral femoral condyle with suspicion for a small osteochondral defect as described above.. No ost eophytes. ILIOTIBIAL BAND: Intact LATERAL COLLATERAL LIGAMENT COMPLEX: The fibular collateral ligament is intact. The biceps femoris t endon is intact.Signal abnormalities noted at the musculotendinous junction of the popliteus but no h igh-grade tear. IMPRESSION: 1. Multilevel findings as described above. There is a tear at the level of the root of the posterior horn of the lateral meniscus with some extrusion of lateral meniscus noted and adjacent fluid signal . There is also subarticular bone edema in the lateral compartment, most prominent over the most pos terior weight-bearing surface of the lateral femoral condyle where there appears to be a small osteoc hondral defect and on the sagittal images there is a small loose intra-articular body which is possib ly etiologic origin from this lateral condylar OCD. This finding is seen posteriorly in the joint in timately associated with the lower half of the posterior cruciate ligament. Some intraosseous edema seen at this level as well as in the subjacent lateral tibial plateau. There is no abnormal intraoss eous signal in the opposite-medial compartment. 2. Significant thinning of the retropatellar cartilage of the lateral facet and posterior patellar fi ndings as described above. There is no OCD at this level. 3. Anterior and posterior cruciate ligaments are intact, as is the iliotibial band. Some increased s ignal but no high-grade tear later to the MCL and main components of the lateral collateral ligament complex are intact. 4. Moderate-large joint effusion noted. There is also large partially septate jama cyst which measu res 7 millimeter length and which appears partially ruptured. 5. there is abundant soft tissue edema around the knee, more so posteriorly than anteriorly. DATA REPOSITORY:
== END 2020-12-17 02:37 ==
PROVIDERS: PCP Internal Medicine; Visit Provider Student in an Organized Health Care Education/Training Program
DX: M25.562 Pain in left knee (principal); M17.12 Unilateral primary osteoarthritis, left knee; M25.462 Effusion, left knee; M71.22 Synovial cyst of popliteal space [Baker], left knee; R60.0 Localized edema; S83.282A Other tear of lateral meniscus, current injury, left knee, initial encounter
CPT/HCPCS: 73721

== ENCOUNTER 2020-12-25 14:07 | Outpatient (CLI) | payer MEDICARE, BC, SELFPAY ==
--- NOTE | 2020-12-25 12:45 | DI.RAD_ITS ---
EXAM: XR STANDING ALIGNMENT CLINICAL HISTORY: PRE OP L TKA. TECHNIQUE: 2D digital imaging was performed. COMPARISON: CR BONE LENGTH from 09/16/2017 FINDINGS: A right knee prosthesis is again noted. Bilateral hip prosthesis are again noted. Appear well seate d with no fractures or loosening. Mild degenerative changes in the left knee. Ankles appear unremar kable. No osseous lesions. IMPRESSION: DATA REPOSITORY: RADIATION DOSE DELIVERED:
--- NOTE | 2020-12-25 12:45 | DI.RAD_ITS ---
EXAM: XR KNEE LT 1V CLINICAL HISTORY: pre op L TKA. TECHNIQUE: 2D digital imaging was performed. COMPARISON: CR XR KNEE RT 4V AP,LAT,MAMADOU,PAT from 09/25/2020 FINDINGS: Single lateral view of the left knee reveals no evidence fracture. Small joint effusion. Minimal de generative changes noted on this single view. Bone density is normal. IMPRESSION: DATA REPOSITORY: RADIATION DOSE DELIVERED:
== END 2020-12-25 14:08 | disposition home or self-care (01) ==
LOC: DIORS 14:08
PROVIDERS: PCP Internal Medicine; Referring Provider Internal Medicine; Visit Provider Physician Assistant
DX: Z01.818 Encounter for other preprocedural examination (principal); M17.12 Unilateral primary osteoarthritis, left knee; Z96.643 Presence of artificial hip joint, bilateral; Z96.651 Presence of right artificial knee joint; M25.562 Pain in left knee
CPT/HCPCS: 73560; 77073

== ENCOUNTER 2020-12-29 03:31 | Outpatient (CLI) | payer MEDICARE, BC, SELFPAY ==
[2020-12-29 11:39] LABS: Source Nasal/Nares
[2020-12-29 18:17] LABS: COVID-19 PCR Negative (Negative)
== END 2020-12-29 03:32 | disposition home or self-care (01) ==
LOC: LBO 03:31
PROVIDERS: PCP Internal Medicine; Visit Provider Student in an Organized Health Care Education/Training Program
DX: Z20.822 Contact with and (suspected) exposure to COVID-19 (principal); Z01.818 Encounter for other preprocedural examination
CPT/HCPCS: 87635

== ENCOUNTER 2020-12-29 04:16 | Outpatient (CLI) | payer MEDICARE, BC, SELFPAY ==
[2020-12-29 10:14] LABS: HCT 37.2 % (36.0-46.0); HGB 11.8 g/dL (11.2-15.7); MCH 29.9 pg (27.0-33.0); MCHC 31.7 % (32.0-36.0); MCV 94.4 fL (80-95); Platelet Count 392 10^3/uL (130-400); RBC 3.94 10^6/uL (3.93-5.22); RDW 13.2 % (11.7-14.6); RDW-SD 45.6 fL; WBC 8.02 10^3/uL (4.4-10.8)
[2020-12-29 10:49] LABS: Anion Gap 9.1 mmol/L (3-11); BUN 17 mg/dL (7-18); CO2 29.9 mmol/L (21.0-32.0); CREATININE 0.8 mg/dL (0.55-1.02); Calcium 9.1 mg/dL (8.5-10.1); Chloride 105 mmol/L (98-107); Glucose 87 mg/dL (74-106); Potassium 4.6 mmol/L (3.5-5.1); Sodium 144 mmol/L (136-145)
== END 2020-12-29 04:17 | disposition home or self-care (01) ==
LOC: LBO 04:17
PROVIDERS: PCP Internal Medicine; Visit Provider Student in an Organized Health Care Education/Training Program
DX: M25.562 Pain in left knee (principal); M17.12 Unilateral primary osteoarthritis, left knee; Z01.818 Encounter for other preprocedural examination; Z01.812 Encounter for preprocedural laboratory examination
CPT/HCPCS: 36415; 80048; 85027; 87635

== ENCOUNTER 2020-12-31 07:29 | Day surgery (SDC) | payer MEDICARE, BC, SELFPAY ==
[2020-12-31] VITALS (20 sets, daily range): BP systolic 79–160; BP diastolic 50–98; PULSE 41–61; RESP 10–20; TEMP 36–36.6; TEMPC 36–36.6; O2SAT 91–100; BMI 29.7
[2020-12-31] MEDS: Acetaminophen 500 MG TAB 1000 MG PO (08:04)
[2020-12-31] MEDS: Gabapentin 300 MG CAP PO (08:04)
[2020-12-31] MEDS: Celecoxib 200 MG CAP 400 MG PO (08:04)
[2020-12-31] MEDS: Lactated Ringers 1,000 ML 80 ML IV ×2 (08:19→11:55)
--- NOTE | 2020-12-31 08:28 | W.ANESPRE ---
General Info Date of Service Date Performed: 12/31/20 Height: 5 ft 3 in Weight: 76.2 kg Body Mass Index (BMI): 29.7 Surgical Procedure: Operation Date: 12/31/20 10:40 Proposed Procedures Side Surgeon p Knee Total Arthroplasty Left Wolf Jeffrey MD Meds Allergies and Home Medications Allergies Allergy/AdvReac Type Severity Reaction Status Date / Time Penicillins Allergy Intermediate Skin Rash Unverified 12/31/20 07:50 codeine AdvReac Intermediate Nausea Unverified 12/31/20 07:50 Home Medication Medication Instructions Recorded Advair HFA 2 puff INHALATION BID PRN PRN 09/24/16 albuterol sulfate [Ventolin HFA] 2 puff INHALATION PRN PRN 09/24/16 magnesium oxide 250 mg PO HS 09/24/16 acetaminophen [Masophen] 1,000 mg PO TID PRN #120 tab 09/02/17 ibuprofen 200 - 400 mg PO PRN PRN 06/01/18 ascorbic acid (vitamin C) [Vitamin 500 mg PO DAILY 08/06/20 C] cholecalciferol (vitamin D3) 25 mcg PO DAILY 08/06/20 [Vitamin D3] loratadine 10 mg PO DAILY 08/06/20 omeprazole 20 mg PO Q OTHER DAY 08/06/20 vitamin B complex 1 tab PO DAILY 08/06/20 multivitamin 1 tab PO DAILY 08/20/20 bisacodyl 5 mg tablet,delayed 5 mg PO ONCE #4 tab 10/09/20 release polyethylene glycol 3350 17 238 g PO ONCE #238 g 10/09/20 gram/dose oral powder triamcinolone acetonide [Nasacort] 2 spray INTRANASAL DAILY PRN 12/30/20 Current Visit Medications: Current Medications Generic Name Dose Route Start Last Admin Trade Name Freq PRN Reason Stop Dose Admin Acetaminophen 1,000 mg 12/31/20 06:00 12/31/20 08:04 Acetaminophen 500 Mg Tab PO 1,000 mg PREOP PRAVEEN Administration Celecoxib 400 mg 12/31/20 06:00 12/31/20 08:04 Celecoxib 200 Mg Cap PO 400 mg PREOP PRAVEEN Administration Ephedrine Sulfate 0 mg 12/31/20 08:09 Ephedrine 50 Mg/Ml Vial IVP DIRECTED PRN Fentanyl 0 mcg 12/31/20 08:09 Fentanyl 100 Mcg/2 Ml Vial IVP DIRECTED PRN Gabapentin 300 mg 12/31/20 06:00 12/31/20 08:04 Gabapentin 300 Mg Cap PO 300 mg PREOP PRAVEEN Administration Ringer's Solution 1,000 mls @ 80 mls/hr 12/31/20 06:00 12/31/20 08:19 IV 01/29/21 23:59 80 mls/hr INFUSION PRAVEEN Administration Cefazolin Sodium/Dextrose 2 gm in 50 mls @ 100 mls/hr 12/31/20 06:00 Ancef Duplex IVPB 01/29/21 23:59 PREOP PRAVEEN Tranexamic Acid 1,000 mg/ 60 mls @ 360 mls/hr 12/31/20 06:00 Sodium Chloride IVPB 12/31/20 23:59 DIRECTED PRAVEEN Tranexamic Acid 1,000 mg/ 60 mls @ 360 mls/hr 12/31/20 06:00 Sodium Chloride IVPB 12/31/20 23:59 DIRECTED PRAVEEN Promethazine HCl 6.25 mg/ 50.25 mls @ 200 mls/hr 12/31/20 08:09 Sodium Chloride IVPB DIRECTED PRN Nausea IV Miscellaneous Supplies 1 each 12/31/20 06:00 Iv Access IV 01/29/21 23:59 DIRECTED PRAVEEN Naloxone HCl 0 mg 12/31/20 08:09 Naloxone 0.4 Mg/Ml Vial IVP PRN PRN Sodium Chloride 0 ml 12/31/20 06:00 Normal Saline Flush 10 Ml Syr IV 01/29/21 23:59 PRN PRN Sodium Chloride 0 ml 12/31/20 06:00 Normal Saline 10 Ml Vial IJ 01/29/21 23:59 DIRECTED PRN Sterile Water 0 ml 12/31/20 06:00 Water,Injection,Sterile 10 Ml Vial IJ 01/29/21 23:59 DIRECTED PRN PFSH Active Problems Active Problems: Problem Status Onset Code Bilateral primary osteoarthritis of hip M16.0 Osteoarthritis of right knee M17.11 Trochanteric bursitis of both hips 12/20/16 M70.61, M70.62 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 Epistaxis 05/27/14 R04.0 Bilateral hip joint arthritis 10/27/16 M16.0 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 M22.8X1 Osteoarthritis of left knee M17.12 Asthma J45.909 Myalgia M79.10 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 GERD (gastroesophageal reflux disease) K21.9 Basal cell carcinoma (BCC) of chest C44.519 Seborrheic keratoses L82.1 Cortical cataract of right eye 06/05/18 H26.9 Posterior subcapsular age-related cataract, right eye ~06/05/18 H25.041 Medical History Medical History Asthma Basal cell carcinoma (BCC) of chest Chondrodermatitis nodularis helicis Cortical cataract of right eye (06/05/18) Elevated blood pressure reading GERD (gastroesophageal reflux disease) Myalgia Osteoarthritis of left knee Posterior subcapsular age-related cataract, right eye (~06/05/18) Seborrheic keratoses Skin lesion of face Surgical History Surgical History (Updated 12/31/20 @ 07:50 by Lian Zhang RN) Abdominal hysterectomy Cholecystectomy H/O cataract removal with insertion of prosthetic lens R H/O total hip arthroplasty B/L hips H/O total knee replacement R TKA Ligation of fallopian tube Tobacco Smoking/Tobacco Use Status: Never Alcohol Alcohol Intake: current Alcohol intake frequency: holidays/special occasions only Substance Use Substance use: Never Substance use type: does not use Vital Signs and Lab Results Vital Signs Most Recent Vital Signs in EMR: Most Recent Vital Signs Temp 36.6 C 12/31/20 07:42 Manually Entered Vital Signs Most Recent Manually Entered Vital Signs: Adult Blood Pressure: 160/98 Heart Rate: 61 Respirations: 18 Oxygen Saturation (%): 99 Temperature (C): 36.6 C Lab Results Blood Type / Crossmatch: Patient ABO/Rh O Positive 08/24/17 09:55 08/24/17 Antibody Screen Negative 08/24/17 09:55 08/24/17 Complete Blood Count: White Blood Count 8.02 10^3/uL (4.4-10.8) 12/29/20 10:05 12/29/20 Red Blood Count 3.94 10^6/uL (3.93-5.22) 12/29/20 10:05 12/29/20 Hemoglobin 11.8 g/dL (11.2-15.7) 12/29/20 10:05 12/29/20 Hematocrit 37.2 % (36.0-46.0) 12/29/20 10:05 12/29/20 Platelet Count 392 10^3/uL (130-400) 12/29/20 10:05 12/29/20 Complete Metabolic Panel: Sodium Level 144 mmol/L (136-145) 12/29/20 10:05 12/29/20 Potassium Level 4.6 mmol/L (3.5-5.1) 12/29/20 10:05 12/29/20 Chloride Level 105 mmol/L (98-107) 12/29/20 10:05 12/29/20 Carbon Dioxide Level 29.9 mmol/L (21.0-32.0) 12/29/20 10:05 12/29/20 Blood Urea Nitrogen 17 mg/dL (7-18) 12/29/20 10:05 12/29/20 Creatinine 0.8 mg/dL (0.55-1.02) 12/29/20 10:05 12/29/20 Magnesium Level 2.2 mg/dL (1.8-2.4) 08/06/20 09:55 08/06/20 Calcium Level 9.1 mg/dL (8.5-10.1) 12/29/20 10:05 12/29/20 Albumin 4.0 g/dL (3.4-5.0) 08/06/20 09:55 08/06/20 Glucose Level 87 mg/dL (74-106) 12/29/20 10:05 12/29/20 Hemoglobin A1c 5.8 % (4.5-6.2) 09/24/16 12:10 09/24/16 C-Reactive Protein 13.14 mg/dL (0.0-0.3) H 09/04/17 04:05 09/04/17 Liver Function Panel: Alanine Aminotransferase (ALT/SGPT) 26 U/L (14-59) 08/06/20 09:55 08/06/20 Aspartate Amino Transf (AST/SGOT) 20 U/L (15-37) 08/06/20 09:55 08/06/20 Coagulation Panel: No Data to Display Cardiac Panel: Troponin I < 0.05 ng/mL (<0.06) 08/06/20 09:55 08/06/20 Arterial Blood Gas: No Data to Display Venous Blood Gas: No Data to Display Pancreas Panel: Lipase 116 U/L (73-393) 08/06/20 09:55 08/06/20 Thyroid Panel: No Data to Display Infectious Disease: Coronavirus (COVID-19)(PCR) Negative (Negative) 12/29/20 10:19 12/29/20 Coronavirus 2019 Source Nasal/nares 12/29/20 10:19 12/29/20 Blood Cultures: No Data to Display Toxicology Panel: No Data to Display Panel: No Data to Display Imaging and Studies Imaging and Studies EKG Summary:: 08/06/20 Sinus bradycardia...rate< 60 Borderline prolonged MN interval...MN >222 Anesthesia Assessment and Plan Anesthesia History Personal History: No History of Anesthesia Complications Family History: No Family History of Anesthesia Complications Exercise Tolerance Exercise Tolerance: Metabolic Equivalents>4 Pertinent Negatives Pertinent Negatives: No Symptoms of GERD (Omeprazole effective) Cardiac & Pulmonary Exam Cardiac Exam: Normal S1/S2 Heart Sounds Pulmonary Exam: Clear Bilateral Breath Sounds and Active Cough or Cold Cardiac and Pulmonary Comment:: inhaler use this am Airway Exam Known Difficult Airway: No Mallampati Class: 2 Mouth Opening: Normal (> 3cm) Thyromental Distance: Greater than 3 cm Neck Range of Motion: Full ROM Neck Circumference: Normal Teeth Condition: Normal Dentition ASA Classification ASA Score: ASA 2 ASA Emergency: No NPO Status NPO Status: NPO Clears >2 hours, Solids >8 hours Anesthesia Plan Anesthesia Technique: Spinal Anesthesia Airway Planned: Natural Airway Pain Management: Surgeon and patient request nerve block Monitors Used: Standard Monitors
--- NOTE | 2020-12-31 09:22 | PDOC.DSDIS_ITS ---
Documented by User: CLAU Keller 12/31/20 09:31 Discharge Plan Disposition Patient Disposition: HOME Condition: Good Discharge Details Reason For Visit: Left TKA Attending Provider: Wolf Jeffrey Primary Care Provider: Favian Braga Home Meds and New Rx's Prescriptions: New acetaminophen 500 mg capsule 1,000 mg PO Q8H PRN PRNQty: 90 RF: 0 aspirin 81 mg tablet,delayed release (DR/EC) 81 mg PO BID Qty: 60 RF: 0 celecoxib 200 mg capsule 200 mg PO BID Qty: 60 RF: 0 gabapentin 300 mg capsule 300 mg PO QHS Qty: 14 RF: 0 oxycodone 5 mg capsule 5 mg PO Q4H PRNQty: 20 RF: 0 Continued bisacodyl [Dulcolax (bisacodyl)] 5 mg tablet,delayed release (DR/EC) 5 mg PO ONCE Qty: 4 RF: 0 polyethylene glycol 3350 17 gram/dose powder 238 g PO ONCE Qty: 238 RF: 0 magnesium oxide 250 MG tablet 250 mg PO HS RF: 0 multivitamin Tablet 1 tab PO DAILY RF: 0 ascorbic acid (vitamin C) [Vitamin C] 500 mg Tablet 500 mg PO DAILY RF: 0 omeprazole 20 mg capsule,delayed release(DR/EC) 20 mg PO Q OTHER DAY RF: 0 vitamin B complex Tablet 1 tab PO DAILY RF: 0 loratadine 10 mg Tablet 10 mg PO DAILY RF: 0 cholecalciferol (vitamin D3) [Vitamin D3] 25 mcg (1,000 unit) Capsule 25 mcg PO DAILY RF: 0 albuterol sulfate [Ventolin HFA] 8 GM HFA aerosol inhaler 2 puff Inhalation PRN PRNRF: 0 Advair HFA 12 GM HFA aerosol inhaler 2 puff Inhalation BID PRN PRNRF: 0 triamcinolone acetonide [Nasacort] 55 mcg Aerosol,Madison 2 spray INTRANASAL DAILY PRNRF: 0 Discontinued acetaminophen [Masophen] 500 MG tablet 1,000 mg PO TID PRNQty: 120 RF: 1 ibuprofen 200 mg Capsule 200 - 400 mg PO PRN PRNRF: 0 Discharge Instructions Additional Instructions: Total Knee Discharge Instructions Activity: The most important activity is to walk. You should try to take short walks a few times a day. It is important that when resting you work on keeping the knee straight. Avoid putting a pillow behind the knee as this will encourage flexion. Work on range of motion exercises as provided by Physical Therapy. - Start outpatient physical therapy within 2 weeks. - You should wear the JOHN hose on both legs for 2 weeks. You may remove these at night. You may also use any compression sock in place of the JOHN hose. Dressing: You may remove the Joaquín wrap on your leg 2 days after your surgery and put on the JOHN stocking given to you from the hospital. Keep the surgical dressing (underneath the JOAQUÍN wrap) in place for at least one week. After the first week it may be removed and replaced with light gauze and tape or nothing. The wound and dressing may get wet after 3 days but avoid soaking the dressing or otherwise it will need to be changed. Many people prefer covering the dressing with cling wrap (saran wrap) to minimize it from getting soaked. If it gets wet, just pat dry. If it starts to peel off then it will need to be changed. Medications: - You should take Tylenol and anti-inflammatory Celebrex as your primary pain control medications. If the Celebrex is too expensive or not covered, please call the office for another alternative (Advil/Ibuprofen or Naproxen/Aleve) - You have been prescribed a stronger pain medication Oxycodone for breakthrough pain, take as needed as prescribed. - You have been prescribed Gabapentin to take at night for restlessness and nerve pain. - You will be taking Aspirin 81mg twice a day for DVT prevention unless instructed otherwise. - If you have constipation you should take Colace or Miralax (both [id number]). It takes most people 3-4 days to have a bowel movement. Follow-up: 2 weeks If you have any acute concerns or questions, please do not hesitate to contact the office at [phone]. You may contact Dr. Jeffrey with any questions after hours through the hospital at [phone] or on his cell phone at [phone]. Referrals: Wolf Jeffrey MD [ [facility] STAFF PHYSICIAN] - Equipment/Supplies: Walker Activity:: Activity as Tolerated Shower/Bathe:: Cover Diet:: As Tolerated Discharge Orders Discharge Orders: Discharge Order (Routine); Ordered 12/31/20 Ordered By: Wolf Jeffrey DS: Diagnosis Discharge Diagnosis (1) Osteoarthritis of left knee: Status: Acute Documented by User: Wolf Jeffrey MD 12/31/20 15:55 Discharge Plan Disposition Patient Disposition: HOME Condition: Good Discharge Details Reason For Visit: Left TKA Attending Provider: Wolf Jeffrey Primary Care Provider: Favian Braga [place] Meds and New Rx's Prescriptions: New acetaminophen 500 mg capsule 1,000 mg PO Q8H PRN PRNQty: 90 RF: 0 aspirin 81 mg tablet,delayed release (DR/EC) 81 mg PO BID Qty: 60 RF: 0 celecoxib 200 mg capsule 200 mg PO BID Qty: 60 RF: 0 gabapentin 300 mg capsule 300 mg PO QHS Qty: 14 RF: 0 oxycodone 5 mg capsule 5 mg PO Q4H PRNQty: 20 RF: 0 Continued bisacodyl [Dulcolax (bisacodyl)] 5 mg tablet,delayed release (DR/EC) 5 mg PO ONCE Qty: 4 RF: 0 polyethylene glycol 3350 17 gram/dose powder 238 g PO ONCE Qty: 238 RF: 0 magnesium oxide 250 MG tablet 250 mg PO HS RF: 0 multivitamin Tablet 1 tab PO DAILY RF: 0 ascorbic acid (vitamin C) [Vitamin C] 500 mg Tablet 500 mg PO DAILY RF: 0 omeprazole 20 mg capsule,delayed release(DR/EC) 20 mg PO Q OTHER DAY RF: 0 vitamin B complex Tablet 1 tab PO DAILY RF: 0 loratadine 10 mg Tablet 10 mg PO DAILY RF: 0 cholecalciferol (vitamin D3) [Vitamin D3] 25 mcg (1,000 unit) Capsule 25 mcg PO DAILY RF: 0 albuterol sulfate [Ventolin HFA] 8 GM HFA aerosol inhaler 2 puff Inhalation PRN PRNRF: 0 Advair HFA 12 GM HFA aerosol inhaler 2 puff Inhalation BID PRN PRNRF: 0 triamcinolone acetonide [Nasacort] 55 mcg Aerosol,Madison 2 spray INTRANASAL DAILY PRNRF: 0 Discontinued acetaminophen [Masophen] 500 MG tablet 1,000 mg PO TID PRNQty: 120 RF: 1 ibuprofen 200 mg Capsule 200 - 400 mg PO PRN PRNRF: 0 Discharge Instructions Additional Instructions: Total Knee Discharge Instructions Activity: The most important activity is to walk. You should try to take short walks a few times a day. It is important that when resting you work on keeping the knee straight. Avoid putting a pillow behind the knee as this will encourage flexion. Work on range of motion exercises as provided by Physical Therapy. - Start outpatient physical therapy within 2 weeks. - You should wear the JOHN hose on both legs for 2 weeks. You may remove these at night. You may also use any compression sock in place of the JOHN hose. Dressing: You may remove the Joaquín wrap on your leg 2 days after your surgery and put on the JOHN stocking given to you from the hospital. Keep the surgical dressing (underneath the JOAQUÍN wrap) in place for at least one week. After the first week it may be removed and replaced with light gauze and tape or nothing. The wound and dressing may get wet after 3 days but avoid soaking the dressing or otherwise it will need to be changed. Many people prefer covering the dressing with cling wrap (saran wrap) to minimize it from getting soaked. If it gets wet, just pat dry. If it starts to peel off then it will need to be changed. Medications: - You should take Tylenol and anti-inflammatory Celebrex as your primary pain control medications. If the Celebrex is too expensive or not covered, please call the office for another alternative (Advil/Ibuprofen or Naproxen/Aleve) - You have been prescribed a stronger pain medication Oxycodone for breakthrough pain, take as needed as prescribed. - You have been prescribed Gabapentin to take at night for restlessness and nerve pain. - You will be taking Aspirin 81mg twice a day for DVT prevention unless instructed otherwise. - If you have constipation you should take Colace or Miralax (both [id number]). It takes most people 3-4 days to have a bowel movement. Follow-up: 2 weeks If you have any acute concerns or questions, please do not hesitate to contact the office at [phone]. You may contact Dr. Jeffrey with any questions after hours through the hospital at [phone] or on his cell phone at [phone]. Referrals: Wolf Jeffrey MD [ [facility] STAFF PHYSICIAN] - Equipment/Supplies: Walker Activity:: Activity as Tolerated Shower/Bathe:: Cover Diet:: As Tolerated Discharge Orders Discharge Orders: Discharge Order (Routine); Ordered 12/31/20 Ordered By: Wolf Jeffrey
[2020-12-31] MEDS: ceFAZolin 2 GM/50 ML BAG IVPB (10:12)
[2020-12-31] MEDS: Normal Saline 20 ML VIAL (10:44)
[2020-12-31] MEDS: Ketorolac 30 MG/ML VIAL (10:45)
[2020-12-31] MEDS: Bupivacaine 0.25% Pres-Free 30 ML VIAL (10:47)
--- NOTE | 2020-12-31 11:02 | W.ANESNERVE ---
Nerve Block Single Injection Procedure Date and Time Date Performed: 12/31/20 Procedure Start: 09:44 Location Where Procedure Performed Procedure Location: Other (Procedure Room) Reason Performed: Postoperative Analgesia Requesting Provider: Wolf Jeffrey Timeout Performed Timeout Performed: Yes Monitoring Used ECG, Blood Pressure, SpO2 and See EMR for corresponding vital signs Sterility Sterility: Hand Hygiene, Surgical Cap, Surgical Mask, Sterile Gloves and Chlorhexidine Sedation Given During Procedure Sedation Given (Indicate Dose Given): Versed IV (2 mg) Patient Mental Status Patient Mental Status: Sedate with meaningful communication Nerve Block 1st Nerve Block: Laterality: Left Block Type: Adductor Canal Needle / Catheter Used: 80mm SonoPlex II Local Anesthetic Bolus (Indicate Dose Given): Lidocaine used for local infiltration of skin and Bupivacaine 0.25% (15 ml) Additives (Indicate Dose Given): None Ultrasound: Sterile probe cover and gel used Ultrasound Image Saved?: Yes Nerve Stimulator: Not Used Paresthesia: None Procedure Tolerated: No Complications Procedure Outcome: Successful Performed By: Pennie Sorto
--- NOTE | 2020-12-31 11:22 | W.PM.OP ---
Date of service: 12/31/20 Time of Service: 11:23 Operative Note Operative Note DATE OF PROCEDURE: 12/31/20 PRE-OP DIAGNOSIS: Left Knee Osteoarthritis POST-OP DIAGNOSIS: same PROCEDURE: Left Total Knee Replacement SURGEON: Wolf Jeffrey [employer]CHITECTURAL SALES CONSULTANT: Demi Ervin ANESTHESIA TYPE: General LMA/ETT and Spinal Refer to Anesthesia Record ESTIMATED BLOOD LOSS: 100 PATHOLOGY: none sent TOURNIQUET TIME: 0 COMPLICATIONS: None Patient was transported to: PACU Patient's condition: stable Implants: 1. Depuy Attune Cementless Posterior Stabilized Femoral Component, Size 5 2. Depuy Attune Cementless Rotating Platform Tibial Component, Size 4 3. Depuy Attune 5x8mm PS/RP Poly 4. Depuy Attune Patellar Component, Size 32 Indications: I have seen Lupe in clinic for symptoms of knee arthritis, confirmed with radiographic findings. She has exhausted nonoperative methods and was having significant limitations in daily function and desired better function and less pain. I discussed the technical details of a knee replacement. I explained the risks of the procedure to include, but not limited to, bleeding, infection, pain, stiffness, fracture, damage to nerves and vessels, damage to muscles and tendons, loosening, need for repeat procedure, blood clot and cardiopulmonary demise. Despite these risks, Lupe elected to proceed. Findings: There was complete loss of cartilage from the lateral femur and posterolateral tibia. The central portion of the patella had soft cartilage with a flap tear. Procedure Description: Lupe was greeted in the preoperative holding area where the correct side was identified and marked. The consent was reviewed with the patient and signed. The history and physical was updated. All questions were answered. Preoperative medications were administered: Acetaminophen 1000mg, Celebrex 400mg, and Gabapentin 300mg. An adductor canal block was then administered by the anesthesia team in the PACU. Lupe was taken back to the operating room. A spinal anesthestic was then administered. The patient was placed into the supine position on the operating room table. Posts were placed for positioning during the procedure. All bony prominences were well padded. Prophylactic antibiotics in the form of Cefazolin were administered. 1g of Tranxemic Acid was given intravenously within 30 minutes of incision. The left leg was then prepped with Chloraprep and draped in a standard fashion with impervious stockinette. A second prep with Chloraprep was performed prior to application of Iodine impregnated skin protection. A timeout to confirm correct identity, side and site, procedure, allergies, anesthesia, and medical concerns was performed. With the knee in some flexion, a midline incision was made overlying the knee. Full thickness skin flaps were raised once the extensor mechanism was encountered. These were raised medially and laterally. Any bleeding was controlled with electrocautery. During this there was noted to be some movement of the patient with contraction of the quad. This seemed to be most sensitive with more proximal work. Prior to starting the case the patient had reported tingling of both feet and there was CSF on the spinal. However, given this motion and her apparent response to the surgical stimuli, a general anesthetic was administered. Once this was completed, surgery was continued. Once the extensor mechanism was fully exposed, a medial parapatellar arthrotomy was performed in a flexed position. All bleeding from the arthrotomy and the geniculate arteries was coagulated. A medial subperiosteal peel was performed with electrocautery to the midcoronal plane. The fat pad was removed while keeping the patellar tendon protected. The anterior distal femur synovium was removed for later visualization. The ACL and PCL were resected and the anterior horn of the lateral meniscus was transected. The knee was then flexed with the patella everted. There is noted to be complete loss of cartilage in the central portion of the distal lateral femur as well as in the posterior aspect of the lateral tibia. Using a step drill, and based on preoperative templating, the femoral canal was entered. This was done with a step drill without any difficulty. The intramedullary distal femoral cut guide was inserted, set to a 6 degree valgus cut and 9 mm cut thickness. The distal femoral cut guide was then held in position and pinned. With the soft tissues protected, the distal cut was performed. This was passed over a few times to ensure a planar cut. I then turned attention to the tibia. The extramedullary guide was placed onto the leg. The distal aspect was slid medial to adjust for position of center of ankle and stay in line with shaft of the tibia. Approximately 3-5 degrees of posterior slope was kept in the proximal cutting guide. The center of the guide was aligned with the PCL. The stylus was used to assess cut thickness. The cut was planned for 6 mm laterally and 8 mm medially. This was then held in position and pinned into place with 2 additional pins and a cross pin for stability. The medial and lateral collateral ligaments were protected and the cut was performed. With this completed, it was assessed and noted to be of appropriate dimensions. The guide was removed. A spacer block was inserted and the knee was brought into extension. The 8mm spacer block provided full extension, without hyperextension and with stability of both the medial and lateral collateral ligaments was assessed. The pins from the femur and the tibia were then removed. The distal femur was then sized. The anterior stylus was placed onto the lateral ridge of the anterior femur. This indicated a size 5 femur. The external rotation of the guide was adjusted to 3 degrees to match the epicondylar axis, perpendicular to Dwayne?s line. The 4-in-1 cutting guide was the placed. The posterior medial femur cut was evaluated and appeared of good thickness. The spacer block was inserted underneath the cutting guide and stability was confirmed in 90 degrees of flexion. An markell wing was used to confirm appropriate position of the anterior cut to avoid notching. This cutting guide was ensured to be flush on the cut surface and then pinned into place with headed pins. While protecting the soft tissues, quad tendon, and collateral ligaments, the anterior and posterior cuts were performed with a saw. The central two pins were removed and the posterior and anterior chamfers were cut next. The notch-cutting guide was placed. This was pinned to lateralize the femoral component as much as possible while keeping it flush on the cut surface. This was then pinned into position. A reciprocating saw was used to make the notch cut. A rasp smoothed the cut surfaces. The medial and lateral menisci were removed. A trial femoral component was then inserted, impacted down to the cut surfaces, and the lug holes were drilled. A provisional trial tibial component was placed and the knee was brought through range of motion. There was noted to be excellent extension and flexion. There was no significant instability. The patella was tracking without thumbs. A size 8mm polyethylene component provided the best range of motion and stability with less than 2mm gapping with medial and lateral stress and full extension without significant hyperextension. The tibial cut surface was fully exposed. The tibia was then sized as a 4. The tibia had been previously marked during trialing to correspond to the center of the tibial component to help with rotation. The trial was aligned to this demi, approximately rotated to the medial 1/3rd of the tibial tubercle. The trial was pinned into place. The tibia was prepared with a reamer and a keel punch and lug holes. The knee was then brought into extension and the patella was measured as 21mm. Using the patellar clamp and cut guide, this was resected to a flat surface with at least 13mm of thickness remaining. The size 32 patella fit the best. This was oriented and then clamped into position. The lugs were drilled. The trial components were removed. The final components were opened on the back table. The periosteal and capsular tissues, especially posteriorly, around the knee were then systematically injected with a periarticular cocktail consisting of 50cc 0.25% Marcaine, 30mg Ketorolac, 20cc of Exparal and 50cc of injectable saline. The knee was thoroughly irrigated with a pulse lavage and dried. Irrisept was also used to irrigate the tissues. On the back table, with the implants opened, the cement was mixed. One batch of high viscosity cement was prepared with vacuum assistance. After the cement was ready a small amount was placed on the cut surface of the patella and the patellar button was clamped into position and held. While the cement was hardening, the cementless knee components were placed. Starting with the tibial component, the tibia was subluxed anteriorly and the lug holes of the component were lined up. The tibia was then impacted with an impactor and mallet until the tibial component was in contact with the tibia. Then, the femoral component was inserted. The lug holes were aligned and the component was impacted into position. The rotating platform, posterior stabilized polyethylene was then inserted. The knee was irrigated with Irrisept chlorhexadine solution. This was allowed to sit in the knee for 3 minutes. After the cement had finally cured, approximately 15min, the clamp was removed from the patella and the knee was taken through range of motion. The patella was tracking with a no-thumbs technique. The capsule was then reapproximated with a No. 1 Vicryl at multiple locations. The capsule was finally closed with a No. 2 Stratafix, barbed suture. The second dosing of 1g TXA was started. Deep tissues were then reapproximated with 0 Vicryl and 2-0 Vicryl. The skin was closed with a running 3-0 Monocryl in a subcuticular fashion. This was reinforced with skin glue. A Mepilex silver dressing was applied along with a [id number] RICHARD wrap. A CryoCuff was applied. Lupe was transferred to the stretcher without difficulty an suffering no apparent complication. Lupe has a good prognosis. Physical therapy will start today and without restrictions, weight-bearing as tolerated. Aspirin 81mg BID will be used for DVT prophylaxis.
[2020-12-31] MEDS: fentaNYL 100 MCG/2 ML VIAL IVP ×2 (12:13→12:42)
--- NOTE | 2020-12-31 14:49 | W.ANESPOSTOP ---
Postoperative Evaluation Date, Time and Location Date Performed: 12/31/20 Time Performed: 14:51 Patient Location: Day Surgery Unit Vital Signs Most Recent Imported Vital Signs: Most Recent Vital Signs Temp Pulse Resp BP Pulse Ox 36.0 C L 51 L 16 133/78 99 12/31/20 14:28 12/31/20 14:28 12/31/20 14:12/31/20 14:12/31/20 14:28 Most Recent Manually Entered Vital Signs: Adult Blood Pressure: 133/78 Heart Rate: 51 Respirations: 16 Oxygen Saturation (%): 99 Temperature (C): 36.0 C Pain Score (0-10 Scale): 0 Pain Score Most Recent Pain Score: Most Recent Pain Score Pain Level 4 12/31/20 12:57 Assessment Mental Status: Awake (Alert & Oriented to Patient Baseline) Airway and Respiratory Function: Patent airway with normal (patient baseline) respiratory exam Cardiovascular Function: Hemodynamically Stable Hydration Status: Adequately Hydrated Nausea & Vomiting: No Nausea or Vomiting Pain: Pt. Denies Any Pain Peripheral Nerve Block: Regional nerve block not resolved at time of post operative discharge
--- NOTE | 2020-12-31 15:15 | IN_ITS ---
Date of service: 12/31/20 Time of Service: 15:15 PT Notes Visit Reasons: Left TKA Physical Therapy Day Surgery Initial Evaluation Date: 12/31/2020 Referring Doctor: CLAU Keller PT Orders: PT CONSULT: Status post Ortho surgery. Eval/treat. Precautions: WBAT on left LE with AD. Patient Profile/Admitting Diagnosis: Lupe is a 65-year-old female with unilateral osteoarthritis of the left knee and is status post left total knee arthroplasty on postoperative day 0. PMHX: Medical History Asthma Basal cell carcinoma (BCC) of chest Chondrodermatitis nodularis helicis Cortical cataract of right eye (06/05/18) Elevated blood pressure reading GERD (gastroesophageal reflux disease) Myalgia Osteoarthritis of left knee Posterior subcapsular age-related cataract, right eye (~06/05/18) Seborrheic keratoses Skin lesion of face Surgical History Abdominal hysterectomy Cholecystectomy Ligation of fallopian tube Social History/Home Situation: Lives with in a private home with 2 steps to enter with [place] to door frame for support. Has 14 steps to the second floor of the house where the bedroom is rail on the left side and with a wall on the other side that she can push onto for support. Prior to surgery, was using front wheeled walker at home when pain gets in the way of walking. Equipment Owned/DME: Front wheeled walker, single-point cane Subjective: Patient reports pain around in the left knee and the left ankle at 2-3/10 with rest and 3-4/10 with ambulation activity, states that she feels d iscomfort more in the ankle when she does have the knee. Hopeful that her ability to lift her left foot comes back eventually as the anesthesia wears off. Denies headache, chest pain, and lightheadedness throughout session. Objective: General Observation: RICHARD wraps on left LE. Cryo/Cuff on left knee. EDS on right leg. Mental Status: Alert and oriented x4 Pain: 2-3/10 pain in the left ankle and left knee at rest, 3?4/10 with weight bearing. ROM: Right Lower Extremity: Hip flexion WFL. Hip abduction WFL. Knee flexion 10 degrees to 95 degrees. Knee extension -10 degrees ankle dorsiflexion WFL. Ankle plantarflexion WFL. Left Lower Extremity: Hip flexion WFL, tolerated 10 straight leg raises up to 60 degrees with about 5 degrees of extensor lag at the knee. Hip abduction WFL. Knee flexion 5 degrees to 95 degrees. Knee extension -5 degrees, tolerated 10 straight leg raises up to 60 degrees with about 5 degrees of extensor lag at the knee. Ankle dorsiflexion unable at this time. Toe extensors about 10 degrees. Ankle plantarflexion about 20 degrees. Strength: Right Lower Extremity: Hip flexors 4/5. Hip abductors 4/5. Knee flexors 3-/5. Knee extensors 3-/5. Ankle dorsiflexors 4/5. Ankle plantarflexors 4/5. Left Lower Extremity:Hip flexors 4/5. Hip abductors 4/5. Knee flexors 3-/5. Knee extensors 3-/5. Ankle dorsiflexors 1/5. Toe extensors 2-/5. Ankle plantarflexors 3-/5. Sensation: Reported numbness in bilateral gluteal areas and on the left distal leg anteriorly Bed Mobility/Transfers: Supine to sit supervision Sit to stand contact-guard assist Stand to sit standby assist Bed to chair standby assist Gait: Tolerated level surface ambulation of 130 feet using front wheeled walker with step to gait pattern requiring only contact-guard assist and wheelchair follow of nurse Sanchez for safety. Reported more discomfort around the left ankle than the left knee of up to 4/10. Minimal cueing provided in order to increase left hip and knee flexion to prevent toe drag on the left. No LOB. No SOB. Balance: Static Sitting: Normal Dynamic Sitting: Normal Static Standing: Fair Dynamic Standing: Fair Special Tests: Mobility Limitations Standardized Measure [facility] AM-PAC 6 clicks Basic Mobility Inpatient Short Form: Raw Score: 23 CMS Score: 11% deficit Informed Consent/Education: Patient instructed in purpose of PT consult. Pa cket containing TKA exercise protocol has been given to patient. Education and training on initial set of exercises that can be done at home have been completed with patient. Assessment: Transient common peroneal nerve neuropathy observed, cueing provided during ambulation activity for safety. Lupe requires the use of a front wheeled walker for all mobility ADL performance in order to maximize independence and reduce fall risk at home. She will have the support of her as she recovers. She will benefit from outpatient PT services in order to address impairment level findings and functional limitations below. Patient presents with clinical signs and symptoms consistent with current/admitting diagnoses that have resulted to mobility limitations, gait instability, generalized weakness, and impairment of motor control as demonstrated by the following impairment level findings: 1. Decreased strength to left ankle dorsiflexors and left knee major muscle groups 2. Impaired standing balance 3. Limitation of joint range of motion in left knee and left ankle dorsiflexion Impairments are contributing to the following functional limitations: 1. Inability to safely ambulate without assistive device 2. Increase completion time for mobility ADL performance 3. Increased fall risk Patient is assessed as a 16017 moderate complexity based on the following: History: 65-year-old female with impairment level findings, functional limitations, and past medical history as indicated above Examination: Demonstrable impairment in strength, balance, and mobility level with underlying impairments and functional limitations as documented above Presentation: Evolving Decision Makin moderate complexity Goals: N/A. PT evaluation and 1-2 treatment sessions only for functional mobility training using recommended AD and for HEP instruction. Plan of Care/Treatment Plan: N/A. PT evaluation and 1-2 treatment session only for functional mobility training using recommended AD and for HEP instruction. DISCHARGE RECOMMENDATIONS: Home when medically cleared by orthopedic surgeon. Outpatient physical therapy services in order to address functional deficits and impairment level findings. TREATMENT CODE/TIME: 19721 x 30 minutes, 21730 x 44 minutes beginning at 15:15 PM. Thank you for the opportunity to participate in the care of this patient. Belkis Bravo PT, DPT, CLT [facility] [place], [place]
[2020-12-31] MEDS: oxyCODONE 5 MG TAB PO (16:13)
== END 2020-12-31 18:24 | disposition home or self-care (01) ==
PROVIDERS: PCP Internal Medicine; Visit Provider Student in an Organized Health Care Education/Training Program
PROC: (CPT 27447; principal; 2020-12-31 10:30)
DX: M17.12 Unilateral primary osteoarthritis, left knee (principal); J45.909 Unspecified asthma, uncomplicated; K21.9 Gastro-esophageal reflux disease without esophagitis
CPT/HCPCS: 27447; 76942; 97162; 97530; J0690; J1885; J2001; J2250; J2405; J3010

== ENCOUNTER 2021-01-14 15:40 | Outpatient (CLI) | payer MEDICARE, BC, SELFPAY ==
--- NOTE | 2021-01-14 10:00 | DI.RAD_ITS ---
Exam(s) XR STANDING ALIGNMENT EXAM: XR STANDING ALIGNMENT CLINICAL HISTORY: post op. TECHNIQUE: 2D digital imaging was performed. 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 Previously present right knee prosthesis is again noted. There has been interval placement of a left knee prosthesis. All prostheses appear to exhibit normal position with no loosening. No obvious abnormalities at the level of the ankles. No pelvic fractures. No osseous lesions IMPRESSION: DATA REPOSITORY: RADIATION DOSE DELIVERED:
--- NOTE | 2021-01-14 10:18 | DI.RAD_ITS ---
Exam(s) XR KNEE LT 1V EXAM: XR KNEE LT 1V CLINICAL HISTORY: 1st post op L TKA. TECHNIQUE: 2D digital imaging was performed. COMPARISON: CR XR KNEE LT 1V from 12/25/2020 FINDINGS: Satisfactory position of the components of the recently placed left knee prosthesis. No fracture or loosening. IMPRESSION: DATA REPOSITORY: RADIATION DOSE DELIVERED:
== END 2021-01-14 15:41 | disposition home or self-care (01) ==
LOC: DIORS 15:40
PROVIDERS: PCP Internal Medicine; Visit Provider Physician Assistant Surgical
DX: Z47.1 Aftercare following joint replacement surgery (principal); Z96.652 Presence of left artificial knee joint; Z96.643 Presence of artificial hip joint, bilateral
CPT/HCPCS: 73560; 77073

== ENCOUNTER 2021-02-11 07:38 | Emergency (ER) | payer MEDICARE, BC, SELFPAY ==
[2021-02-11 07:53] VITALS: BP 121/61; PULSE 72; RESP 18; TEMP 36.8; O2SAT 98
--- NOTE | 2021-02-11 08:03 | W.ED.GENAD ---
Discharge Plan Disposition Patient Disposition: HOME Condition: Stable Discharge Details Clinical Impression: Colitis presumed infectious Primary Care Provider: Favian Braga ED Provider: Felecia Salmeron Home Meds and New Rx's Prescriptions: New ciprofloxacin HCl [Cipro] 500 mg tablet 500 mg PO BID 7 Days Qty: 14 RF: 0 Continued multivitamin Tablet 1 tab PO DAILY RF: 0 omeprazole 20 mg capsule,delayed release(DR/EC) 20 mg PO Q OTHER DAY RF: 0 vitamin B complex Tablet 1 tab PO DAILY RF: 0 loratadine 10 mg Tablet 10 mg PO DAILY RF: 0 ibuprofen 200 mg Capsule 200 mg PO PRN PRNRF: 0 calcium carbonate [Calcium 500] 500 mg calcium (1,250 mg) Tablet 500 mg PO DAILY RF: 0 albuterol sulfate [ProAir HFA] 90 mcg/actuation Hfa Aerosol Inhaler 2 puff INHALATION Q4-5H RF: 0 glucosamine-chondroitin [Osteo Bi-Flex] 250-200 mg Tablet 1 tab PO DAILY RF: 0 Advair HFA 12 GM HFA aerosol inhaler 2 puff Inhalation BID PRN PRNRF: 0 triamcinolone acetonide [Nasacort] 55 mcg Aerosol,[place] 2 spray INTRANASAL DAILY PRNRF: 0 acetaminophen 500 mg capsule 1,000 mg PO Q8H PRN PRNQty: 90 RF: 0 Discharge Instructions Instructions: Colitis (ED) Additional Instructions: Follow up with primary care provider in 3-5 days. Return to ED sooner if any worsening greater than 7-10 episodes of diarrhea daily, worsening dizziness, fever, vomiting or concerns. Increase oral fluids. Take antibiotics as prescribed. Eat yogurt daily with antibiotic or take a probiotic. Please collect stool the earliest convenience at home and bring in to the lab for evaluation Referrals: Favian Braga MD [Primary Care Provider] - Discharge Data Discharge Date/Time-TO BE ENTERED AT DEPARTURE: 02/11/21 11:05 Medical Decision Making 65-year-old female presents to the ER with chief complaint of diarrhea with intermittent abdominal cramping and fever for the last 2 weeks. She says she is gotten worse. She did have a reported fever of 100.8 this morning. She reports bloody mucus in her stool she does state that she had about 6 episodes a day. Denies any nausea vomiting. Denies shortness of breath chest pain. Reports generalized weakness decreased appetite. Denies any sick contacts. Does have a past medical history of GERD, osteoarthritis, asthma surgical history includes hysterectomy, cholecystectomy, left total knee replacement in December of this year. Labs to day show WBC 17. 70, Hgb 9.8 Hct 30.6 Which is at patients baseline For H&H. Glucose 134, No evidence for uti. At this time I do suspect infectious colitis due to leukocytosis. CT shows as noted below: FINDINGS: ABDOMEN: Lung Bases: Normal where visualized. Large hiatal hernia. Liver: Normal density. No measurable mass. Portal, Superior Mesenteric, and Splenic Veins: Unremarkable. Gallbladder and Biliary Tract: Status post cholecystectomy. No biliary ductal dilatation. Pancreas: Normal density, no abnormal calcifications or inflammatory process. Spleen: Normal. Adrenals: No masses seen. Kidneys: Normal size, contour and axis. No radiodense stones or obstructive uropathy. No masses seen. There is a partially duplicated left renal collecting system. Abdominal Aorta: Abdominal portion non-dilated. Mild atherosclerosis. Bowel: There is no evidence of obstruction. There is bowel wall thickening involving the cecum, ascending colon and transverse colon. Mild increased attenuation is seen around the colon. Differential considerations include infectious or inflammatory colitis. Ischemia cannot be excluded. No evidence of appendicitis. Peritoneal Cavity: No ascites, collection or mesenteric inflammatory response. No free air. Lymph Nodes: There are mildly enlarged lymph nodes seen in the right lower quadrant and mesentery. These are likely reactive. Bones: The patient has bilateral total hip replacements. Degenerative changes are present in the spine. Soft Tissues: Unremarkable. PELVIS: Bladder: The urinary bladder is largely obscured due to artifact from the bilateral total hip replacements. Reproductive Organs: The patient appears to be status post hysterectomy. Lymph Nodes: Please see the above discussion. Bones: Please see the above discussion. IMPRESSION: Findings most suspicious for an infectious or inflammatory colitis. No abscess or free air. Ischemia cannot be entirely excluded. Please correlate clinically. Results of this exam have been verbally communicated with provider. Discussed CT results with patient who verbalizes understanding will place patient on ciprofloxacin 500 mg twice daily x7 days. Instructed to take probiotic and follow-up with PCP in 3 to 5 days, verbalized understanding. I do not suspect bowel ischemia at this time patient is hemodynamically stable in no acute pain at this time. Discussed strict return instructions and home care. This text was generated using [employer] system, please disregard any oddities of phrase or misspellings. HPI General Mode of arrival: ambulatory. Date/Time Provider Initiated Documentation: 02/11/21 08:00. Limitations to Documentation: no limitations. Information obtained by: patient. HPI Narrative: 65-year-old female presents to the ER with chief complaint of diarrhea with intermittent abdominal cramping and fever for the last 2 weeks. She says she is gotten worse. She did have a reported fever of 100.8 this morning. She reports bloody mucus in her stool she does state that she had about 6 episodes a day. Denies any nausea vomiting. Denies shortness of breath chest pain. Reports generalized weakness decreased appetite. Denies any sick contacts. Does have a past medical history of GERD, osteoarthritis, asthma surgical history includes hysterectomy, cholecystectomy, left total knee replacement in December of this year. Related Data Home Medications Medication Instructions Recorded Confirmed Advair HFA 2 puff INHALATION BID PRN PRN 09/24/16 02/11/21 loratadine 10 mg PO DAILY 08/06/20 02/11/21 omeprazole 20 mg PO Q OTHER DAY 08/06/20 02/11/21 vitamin B complex 1 tab PO DAILY 08/06/20 02/11/21 multivitamin 1 tab PO DAILY 08/20/20 02/11/21 triamcinolone acetonide [Nasacort] 2 spray INTRANASAL DAILY PRN 12/30/20 02/11/21 acetaminophen 1,000 mg PO Q8H PRN PRN #90 cap 12/31/20 02/11/21 albuterol sulfate [ProAir HFA] 2 puff INHALATION Q4-5H 02/11/21 02/11/21 calcium carbonate [Calcium 500] 500 mg PO DAILY 02/11/21 02/11/21 ciprofloxacin HCl [Cipro] 500 mg PO BID 7 Days #14 tab 02/11/21 glucosamine-chondroitin [Osteo 1 tab PO DAILY 02/11/21 02/11/21 Bi-Flex] ibuprofen 200 mg PO PRN PRN 02/11/21 02/11/21 Previous Rx's Medication Instructions Recorded acetaminophen 1,000 mg PO Q8H PRN PRN #90 cap 12/31/20 ciprofloxacin HCl [Cipro] 500 mg PO BID 7 Days #14 tab 02/11/21 Allergies Allergy/AdvReac Type Severity Reaction Status Date / Time Penicillins Allergy Intermediate Skin Rash Unverified 02/11/21 07:56 codeine AdvReac Intermediate Nausea Unverified 02/11/21 07:56 General Stated Complaint: Nausea/Vomit/Diar MAYITO: 3 Review of Systems Narrative: Constitutional: Negative for weight loss, alert and oriented, well groomed, normal body habitus, appears comfortable. HEENT: Denies trauma, headaches, blurry vision, nasal discharge, sore throat, trouble swallowing. Chest: Denies chest pain, palpitations, irregular rhythm, hypertension. Respiratory: Denies Shortness of breath, cough, hemoptysis. GI: Denies nausea, vomiting, constipation. Positive diarrhea with mucus for 2 weeks. Approximately 4-6 episodes a day. : Denies dysuria, hematuria, flank pain, rectal bleeding. Neuro: Denies dizziness, blurry vision, weakness, syncope, headache or facial numbness. Hematologic: Denies easy bruising, intolerance to heat or cold, hair loss. ON LICENSE OF [facility] Medical History Asthma Basal cell carcinoma (BCC) of chest Chondrodermatitis nodularis helicis Cortical cataract of right eye (06/05/18) Elevated blood pressure reading GERD (gastroesophageal reflux disease) Myalgia Osteoarthritis of left knee Posterior subcapsular age-related cataract, right eye (~06/05/18) Seborrheic keratoses Skin lesion of face Surgical History Abdominal hysterectomy Cholecystectomy H/O cataract removal with insertion of prosthetic lens R H/O total hip arthroplasty B/L hips H/O total knee replacement R TKA History of total left knee replacement (12/31/20) Ligation of fallopian tube Social History Smoking/Tobacco Use Status: Never Smoking risk assessment performed?: Yes Alcohol Intake: current Alcohol Intake frequency: holidays/special occasions only Drug use: Never Substance use type: does not use Current gender identity: female Do you feel safe at home: Yes Do you feel safe in your relationship?: Yes Exam Narrative Exam Narrative: Constitutional: Alert and oriented x3. Appears stated age. Normal body habitus. Head: Normocephalic, no trauma. Eyes: Pupils PERRLA, Red reflex noted, EOM's intact. Eyelids symmetrical without lesions, discharge, or swelling. ENT: Bilateral TM's WNL, External ear normal to inspection, no mastoid TTP, swelling, or erythema, Nasal turbinates WNL, no nasal discharge. Normal dentition, Posterior pharynx WNL, no exudate. Chest: RRR, Normal S1, S2, distal pulses intact. Resp: Lungs clear to auscultation bilaterally, no wheezes, rales, or rhonchi. Abdomen: Soft, nondistended nontender to palpation all 4 quadrants. Musculoskeletal: Normal gait, 5/5 strength to all four extremities. Skin: No suspicious rashes or lesions. Capillary refill less than 2 sec. Neurologic: Cranial nerves II-XII intact. Alert and oriented x 3. DTR's intact. Hematologic/Lymphatic: No ecchymosis, no lymphadenopathy. Course Vital Signs Vital signs: Vital Signs Temperature 36.8 C 02/11/21 07:53 Pulse 72 02/11/21 07:53 Respiratory Rate 18 02/11/21 07:53 Blood Pressure 121/61 02/11/21 07:53 Pulse Oximetry 98 02/11/21 07:53 Temperature 36.8 C 02/11/21 07:53 Temperature Source Skin 02/11/21 07:53 Pulse 72 02/11/21 07:53 Respiratory Rate 18 02/11/21 07:53 Respiratory Effort Non-Labored 02/11/21 07:55 Blood Pressure 121/61 02/11/21 07:53 Blood Pressure Position Sitting 02/11/21 07:53 Pulse Oximetry 98 02/11/21 07:53 Oxygen Delivery Method Room Air 02/11/21 07:53 Oxygen Flow Rate 0 02/11/21 07:53 Pain Level 0 02/11/21 07:53
[2021-02-11 08:11] LABS: Abs Immature Grans 0.09 10^3/uL (0.0-0.06); Absolute Basophil Count 0.04 10^3/uL (0.0-0.2); Absolute Eosinophil Count 0.02 10^3/uL (0.0-0.7); Absolute Monocyte Count 0.57 10^3/uL (0.1-0.8); Basophils % 0.2; Eosinophils % 0.1; HCT 30.6 % (36.0-46.0); HGB 9.8 g/dL (11.2-15.7); Immature Grans % 0.5; Lymphocytes % 3.3; MCV 90.5 fL (80-95); MPV 8.6 fL (8.0-11.0); Monocytes % 3.2; Neutrophils % 92.7; Nucleated RBC 0 %; Platelet Count 600 10^3/uL (130-400); RBC 3.38 10^6/uL (3.93-5.22); RDW-SD 48.4 fL
[2021-02-11 08:12] LABS: Absolute Lymphocyte Count 0.58 10^3/uL (1.2-3.4); Absolute Neutrophil Count 16.41 10^3/uL (1.2-6.7)
[2021-02-11] MEDS: Normal Saline 1,000 ML 1000 ML IV (08:24)
[2021-02-11 08:25] LABS: Lactate 0.8 mmol/L (0.6-1.4)
[2021-02-11 08:26] LABS: ALT 19 U/L (14-59); AST 13 U/L (15-37); Albumin 2.8 g/dL (3.4-5.0); Alkaline Phosphatase 75 U/L (46-116); Anion Gap 8.5 mmol/L (3-11); BUN 16 mg/dL (7-18); Bilirubin, Total 0.5 mg/dL (0.2-1.0); CO2 27.5 mmol/L (21.0-32.0); CREATININE 0.9 mg/dL (0.55-1.02); Calcium 8.7 mg/dL (8.5-10.1); Chloride 103 mmol/L (98-107); Glucose 134 mg/dL (74-106); Magnesium 1.8 mg/dL (1.8-2.4); Potassium 3.6 mmol/L (3.5-5.1); Sodium 139 mmol/L (136-145)
[2021-02-11] MEDS: Normal Saline - Diluent 50 ML VIAL IV (10:06)
[2021-02-11] MEDS: Omnipaque 350 MG/ML 100 ML BTL IJ (10:06)
[2021-02-11] MEDS: Normal Saline Flush 10 ML SYR IVP (10:08)
[2021-02-11 10:11] LABS: Bilirubin Negative (Negative); Blood Negative (Negative); Clarity Clear (Clear); Glucose Negative (Negative); Ketones Negative (Negative); Leukocyte Esterase Negative (Negative); Nitrite Negative (Negative); Specific Gravity 1.025 (1.005-1.025); Urobilinogen 0.2 EU/dL (Up TO 0.2)
--- NOTE | 2021-02-11 10:18 | DI.CT_ITS ---
Exam(s) CT ABDOMEN PELVIS W EXAM: CT ABDOMEN PELVIS W CLINICAL HISTORY: Diarrhea, Fever TECHNIQUE: Imaging Protocol: Axial computed tomography images with coronal and sagittal reformatted images were created and reviewed CONTRAST MATERIAL: Intravenous: Omnipaque 350 Contrast volume:100 mL Oral: No COMPARISON: CT CT CHEST/ABD/PEL W from 08/06/2020 FINDINGS: ABDOMEN: Lung Bases: Normal where visualized. Large hiatal hernia. Liver: Normal density. No measurable mass. Portal, Superior Mesenteric, and Splenic Veins: Unremarkable. Gallbladder and Biliary Tract: Status post cholecystectomy. No biliary ductal dilatation. Pancreas: Normal density, no abnormal calcifications or inflammatory process. Spleen: Normal. Adrenals: No masses seen. Kidneys: Normal size, contour and axis. No radiodense stones or obstructive uropathy. No masses seen. There is a partially duplicated left renal collecting system. Abdominal Aorta: Abdominal portion non-dilated. Mild atherosclerosis. Bowel: There is no evidence of obstruction. There is bowel wall thickening involving the cecum, asce nding colon and transverse colon. Mild increased attenuation is seen around the colon. Differential considerations include infectious or inflammatory colitis. Ischemia cannot be excluded. No evidenc e of appendicitis. Peritoneal Cavity: No ascites, collection or mesenteric inflammatory response. No free air. Lymph Nodes: There are mildly enlarged lymph nodes seen in the right lower quadrant and mesentery. T hese are likely reactive. Bones: The patient has bilateral total hip replacements. Degenerative changes are present in the spi ne. Soft Tissues: Unremarkable. PELVIS: Bladder: The urinary bladder is largely obscured due to artifact from the bilateral total hip replace ments. Reproductive Organs: The patient appears to be status post hysterectomy. Lymph Nodes: Please see the above discussion. Bones: Please see the above discussion. IMPRESSION: Findings most suspicious for an infectious or inflammatory colitis. No abscess or free air. Ischemi a cannot be entirely excluded. Please correlate clinically. Results of this exam have been verbally communicated with provider. RADIATION DOSE DELIVERED: 884.55mGy.cm Total DLP DATA REPOSITORY: All CT scans at this facility are submitted to the National Radiology Data Registry (NRDR) Dose Index Registry (DIR) with the [employer] (ACR). RADIATION OPTIMIZATION: All CT scans at this facility use at least one of these dose optimization te chniques: automated exposure control; mA and/or kV adjustment per patient size (includes targeted exa ms where dose is matched to clinical indication); or iterative reconstruction.
[2021-02-11 10:25] LABS: Bacteria Negative HPF (Negative); C & S Indicated? No; Casts 10-20 Hyaline LPF (Negative); Crystals Negative HPF (Negative); Epithelial Cells Few HPF (Negative); Mucus Moderate (Negative); RBC Negative HPF (0-2); WBC 0-2 HPF (0-5)
[2021-02-11] MEDS: Ciprofloxacin 500 MG TAB PO (10:47)
[2021-02-11 11:03] VITALS: BP 132/78; PULSE 87; RESP 16; TEMP 36.9; O2SAT 98
== END 2021-02-11 11:05 | disposition home or self-care (01) ==
PROVIDERS: Emergency Provider Registered Nurse Emergency; PCP Internal Medicine
DX: K52.89 Other specified noninfective gastroenteritis and colitis (principal)
CPT/HCPCS: 36410; 80053; 87040; 96360; 96361; 99285; 74177; 81003; 81015; 83605; 83735; 85025; 99283; J3490

== ENCOUNTER 2021-02-12 10:46 | Outpatient (REF) | payer MEDICARE, BC, SELFPAY ==
[2021-02-14 13:34] LABS: Campylobacter PCR Positive (Negative); Salmonella PCR Negative (Negative); Shiga Toxin PCR Negative (Negative); Shigella/Enteroinvasive Ecoli Negative (Negative)
== END 2021-02-12 10:47 | disposition home or self-care (01) ==
LOC: NCHCN 10:46
PROVIDERS: PCP Internal Medicine; Visit Provider Internal Medicine
DX: R19.7 Diarrhea, unspecified (principal); K52.9 Noninfective gastroenteritis and colitis, unspecified
CPT/HCPCS: 87505; 82272; 83630; 87177

== ENCOUNTER → 2021-02-13 10:37 | Outpatient (BNVA) | payer MEDICARE, BC, SELFPAY | PROVIDERS: PCP Internal Medicine; Visit Provider Student in an Organized Health Care Education/Training Program | DX: Z47.1 Aftercare following joint replacement surgery (principal); Z96.652 Presence of left artificial knee joint ==

== ENCOUNTER → 2021-03-27 09:57 | Outpatient (BNVA) | payer MEDICARE, BC, SELFPAY | PROVIDERS: PCP Internal Medicine; Referring Provider Internal Medicine; Visit Provider Student in an Organized Health Care Education/Training Program | DX: Z47.1 Aftercare following joint replacement surgery (principal); Z96.652 Presence of left artificial knee joint ==

== ENCOUNTER 2021-05-05 16:54 | Outpatient (REF) | payer MEDICARE, BC, SELFPAY ==
[2021-05-07 11:55] LABS: COVID-19 RT-PCR UVMMC Result Negative (Negative)
== END 2021-05-05 16:55 | disposition home or self-care (01) ==
LOC: NCHCN 16:54
PROVIDERS: PCP Internal Medicine; Visit Provider Nurse Practitioner Family
DX: Z20.822 Contact with and (suspected) exposure to COVID-19 (principal)
CPT/HCPCS: U0003; U0005

== ENCOUNTER 2021-08-11 00:28 | Outpatient (CLI) | payer MEDICARE, BC, SELFPAY ==
--- NOTE | 2021-08-11 14:00 | DI.US_ITS ---
APPROVED REPORT EXAM: Comprehensive 2D, Doppler, and color-flow Echocardiogram Patient Location: Out-Patient Pelt Dropper: Bernice Longo RDCS (AE) Indications: Heart Murmur Other Information Study Quality: Adequate Conclusion Normal left ventricular wall thickness and chamber size. Estimated ejection fraction is 65%. There are no segmental wall motion abnormalities Normal right ventricular size and systolic function Both atria are normal in size There are no structural or hemodynamically significant valvular abnormalities Normal estimated right ventricular systolic pressure 28 mmHg Wall motion Left Ventricle The left ventricle is normal size. The left ventricular systolic function is normal. The left ventric ular ejection fraction is within the normal range. There is normal left ventricular wall thickness. T here is normal LV segmental wall motion. There is no ventricular septal defect visualized. LVEF is 65 %. Right Ventricle The right ventricle is normal size. The right ventricular systolic function is normal. The RVSP is 28 .6mmHg. Atria The left atrium size is normal. The right atrium size is normal. The interatrial septum is intact wit h no evidence for an atrial septal defect. Aortic Valve The aortic valve is normal in structure. There is no aortic valvular stenosis. No aortic regurgitatio n is present. Mitral Valve The mitral valve is normal in structure. No evidence of mitral valve stenosis. Trace mitral regurgita tion. Tricuspid Valve The tricuspid valve is normal in structure. There is no tricuspid valve stenosis. Trace tricuspid reg urgitation. Pulmonic Valve The pulmonary valve is normal in structure. There is no pulmonic valvular stenosis. Trace pulmonic re gurgitation. Great Vessels The aortic root is normal in size. The ascending aorta is borderline dilated. Aortic arch is normal i n caliber. IVC is normal in size and collapses >50% with inspiration. Pericardium There is no pericardial effusion. 2D Dimensions IVSD d PLAX 0.94 cm F: 0.6-1.0 LV Vol A2C d MOD 83.8 mL LVPW d PLAX 0.95 cm F: 0.6 - 1.0 LV Vol A4C d MOD 86.4 mL LVID d PLAX 4.61 cm F: 3.8 - 5.2 LA vol/ BSA A2C s A-L 37.0 mL/m2 LVDs 3.10 cm F: 2.2 - 3.5 LA vol/ BSA A4C s A-L 34.7 mL/m2 Ao Root d 2.52 cm F: 2.7 - 3.3 LA Vol/ BSA Biplane s A-L 36.2 mL/m2 RA Area A4C 14.05 cm2 LA Area A4C s MOD 19.53 cm2 RA Vol/ BSA A4C s A-L 20.1 mL/m2 LA Area A2C s MOD 20.36 cm2 Ao Asc Diam d 3.33 cm F: 2.3 - 3.1 LV EF A4C MOD 66.3 % LV EF Teichholz 60.5 % LV EF A2C MOD 63.0 % LVEF (Brice's) 64.71 % F: 54 - 74 LV EF Biplane MOD 64.7 % LV Volume 67.44 mL F: 46 - 106 SV 55.13 mL LV Volume Index 39.43 mL/m2 F: 29 - 61 SV Index 32.14 mL/m2 LV Vol Biplane MOD 85.2 mL FS 32.20 % M-Mode TAPSE 2.48 cm (M/F) >1.7 LV Diastology MV E' medial 0.119 (>0.07 m/s) E/A Ratio 1.2 LV E/e MED 7.75 (<14) MV E Vmax 0.93 (0.4-1.3 m/s) MV E' lateral 0.106 (>0.1 m/s) MV A Vmax 0.80 (0.4-1.3 m/s) LV E/e LAT 8.70 (<14) MV E/A Ratio 1.09 MV E/E' medial 7.78 MV E/E' lateral 8.74 Aortic Valve LVOT Area 2.83 cm2 AoV Area Vmax 2.04 cm2 LVOT Vmax 1.40 m/s AoV Area/ BSA (Vmax) 1.19 cm2/m2 LVOT Mean Thomas. 0.89 m/s FAY Mean Thomas. 1.89 cm2 LVOT Peak Grad 7.9 mmHg FAY Mean Thomas. Index 1.10 cm2/m2 LVOT Mean Grad 3.8 mmHg LVOT VTI 0.328 m LVOT Diam s 1.85 cm AoV Vmax 1.94 m/s Velocity Ratio 0.72 AoV Mean Thomas. 1.33 m/s AoV Peak Grad 15.1 mmHg LVOT SV 92.93 mL AoV Mean Grad 8.0 mmHg AoV VTI 0.395 m AoV Area VTI 2.36 cm2 AoV Area/ BSA (VTI) 1.37 cm/m2 Mitral Valve MV DT 245 (160-240 msec) MV PHT 71 msec MV Area PHT 3.10 cm2 MV VTI 0.344 m MV Area VTI 2.70 (4.0-6.0 cm2) Pulmonary Valve PV Vmax 1.34 (0.5-1.5 m/s) RVOT Peak Gr. 4.73 mmHg PV Peak Grad 7.2 mmHg RVOT Mean Gr. 2.25 mmHg PV Mean Grad 3.9 mmHg RVOT VTI 0.207 m PV VTI 0.291 m RVOT Vmax 1.09 m/s Tricuspid Valve TR Peak Grad 25.6 mmHg TR Vmax 2.53 m/s RA Pressure 3.00 mmHg RVSP (TR) 28.6 mmHg
== END 2021-08-11 00:48 ==
PROVIDERS: PCP Internal Medicine; Visit Provider Nurse Practitioner Family
DX: R01.1 Cardiac murmur, unspecified (principal)
CPT/HCPCS: 93306

== ENCOUNTER → 2021-08-17 09:58 | Outpatient (BNVA) | payer MEDICARE, BC, SELFPAY | PROVIDERS: PCP Internal Medicine; Referring Provider Internal Medicine; Visit Provider Physical Therapy Assistant | DX: Z12.11 Encounter for screening for malignant neoplasm of colon (principal) ==

== ENCOUNTER 2021-08-19 01:00 | Outpatient (CLI) | payer MEDICARE, BC, SELFPAY ==
[2021-08-19 11:27] LABS: Source Nasal/Nares
[2021-08-19 14:02] LABS: COVID-19 PCR Negative (Negative)
== END 2021-08-19 01:01 | disposition home or self-care (01) ==
LOC: LBO 01:00
PROVIDERS: PCP Internal Medicine; Visit Provider Surgery
DX: Z20.822 Contact with and (suspected) exposure to COVID-19 (principal)
CPT/HCPCS: 87635

== ENCOUNTER 2021-08-21 12:10 | Day surgery (SDC) | payer MEDICARE, BC, SELFPAY ==
--- NOTE | 2021-08-20 22:48 | W.COLOREPORT ---
Colonoscopy Report Date of procedure: 08/21/21 Pre-op diagnosis general: bloody diarrhea/abnl CT Surgeon: Janie Mcdowell Anesthesia Type: General:No Airway Complications: None Disposition: same day Prep: Miralax/Dulcolax Retraction Time: 15 Procedure Description: After informed consent was obtained the patient was taken to the procedure room and placed in a left decubitous position. Monitors were applied and a time out was done. The patients name, date of , procedure, allergies to medications and metal in their body was reviewed. The patient was then sedated. Once sedated and comfortable a rectal exam was done. External exam was normal. Internal exam revealed a normal sphincter tone and no palpable masses. She has significant vaginal atrophy The scope was then introduced and retrofelexed. No internal hemorrhoids were identified. The scope was then advanced to the cecum w/pout difficulty. The TI and appendiceal orifice were identified. She does have a tortuous and redundant colon. The prep was good. The scope was then slowly retracted over 15 minutes back into the rectum. She has multiple very small diverticula confined to the sigmoid colon. She has x7 polypoid polyps at 60 cm. Each of these is 2 to 3 mm in size. They removed with cold biopsy forcep. She has x1 polypoid 3 mm polyp at 50 cm that is removed with cold biopsy forcep. All specimen was retrieved and no bleeding is noted.. The scope was removed and the patient was woken up and taken back to Same day surgery in stable condition. The patient tolerated the procedure well and there were no immediate complications. Follow up: The patient should follow up in 3-5years, path pd, unless they develop changes in bowel habits or other new gastrointestinal complaints.
--- NOTE | 2021-08-20 22:49 | PDOC.DSDIS_ITS ---
Discharge Plan Disposition Patient Disposition: HOME Condition: Good Discharge Details Reason For Visit: colon scope Attending Provider: Janie Mcdowell Primary Care Provider: Favian Braga Home Meds and New Rx's Prescriptions: Continued magnesium 250 mg tablet 500 mg PO DAILY RF: 0 omega-3 fatty acids 1,000 mg capsule 2,000 mg PO BID RF: 0 cholecalciferol (vitamin D3) 25 mcg (1,000 unit) capsule 25 mcg PO DAILY RF: 0 montelukast 10 mg tablet 10 mg PO DAILY RF: 0 multivitamin Tablet 1 tab PO DAILY RF: 0 omeprazole 20 mg capsule,delayed release(DR/EC) 20 mg PO Q OTHER DAY RF: 0 vitamin B complex Tablet 1 tab PO DAILY RF: 0 loratadine 10 mg Tablet 10 mg PO DAILY RF: 0 ibuprofen 200 mg Capsule 200 mg PO PRN PRNRF: 0 calcium carbonate [Calcium 500] 500 mg calcium (1,250 mg) Tablet 500 mg PO DAILY RF: 0 albuterol sulfate [ProAir HFA] 90 mcg/actuation Hfa Aerosol Inhaler 2 puff INHALATION Q4-5H RF: 0 glucosamine-chondroitin [Osteo Bi-Flex] 250-200 mg Tablet 1 tab PO DAILY RF: 0 Advair HFA 12 GM HFA aerosol inhaler 2 puff Inhalation BID PRN PRNRF: 0 triamcinolone acetonide [Nasacort] 55 mcg Aerosol,[place] 2 spray INTRANASAL DAILY PRNRF: 0 acetaminophen 500 mg capsule 1,000 mg PO Q8H PRN PRNQty: 90 RF: 0 Discontinued bisacodyl [Dulcolax (bisacodyl)] 5 mg tablet,delayed release (DR/EC) 5 mg PO ONCE Qty: 4 RF: 0 Discharge Instructions Additional Instructions: DSU Colonoscopy Post- Op Instructions Instructions for Everyone who is given Anesthesia: For your safety, please do the following for the next twenty-four (24) hours: *Do Not operate a motor vehicle (car, truck, motorcycle, etc.) *Do Not drink alcoholic beverages or use any recreational drugs for the first 24 hours or while taking pain medications. The medications in your body may have a reaction that can be dangerous. *Do Not make any important decisions or sign any important papers. Findings: multiple polyps diverticula -Make sure you are moving your bowels on a regular basis and not straining to go to the bathroom. If you find that you are straining to go to the bathroom/constipated, start a fiber product such as Metamucil or Benefiber daily. Follow up: My office will send a letter in 2 to 3 weeks time detailing as to what types of polyps these were, and when we want you to repeat your colonoscopy. probably 3-5yrs. 1. No lifting over 20 pounds or strenuous activity for the first 24 hours after your procedure. After 24 hours there are no restrictions on your activity but you may feel fatigued for a few days. 2. After you arrive home you may have a light meal and return to your normal diet as you can tolerate it without feeling sick to your stomach. 3. You may have a bloated, gaseous feeling in your belly (abdomen) after a colonoscopy. Passing gas and belching will help. Walking or lying down on your left side with your knees flexed may relieve the discomfort. Call the office at [phone] (Office) or [phone] (Hospital) right away if you notice any of the following: a.Vomiting of blood or ?coffee ground stools?. b.Rectal bleeding 1Tbsp, blood clots or continuous bleeding. c.Severe belly (abdominal) pain. d.A hard distended belly (abdomen) and an inability to pass gas. 4. Please don?t expect to have a normal BM (bowel movement) for 2-3 days after your procedure. 5. If there are questions regarding the findings of your procedure, please contact your doctor 6. If you are unable to contact your doctor with a problem, contact the hospital at [phone]. 7. Continue all your regular medications unless directed otherwise. I understand the above instructions and have no questions. Signature of Patient or Adult Escort Name of Responsible Adult Escort Signature of Nurse Date/Time Activity:: see above Diet:: see above Discharge Orders Discharge Orders: Discharge Order (Routine); Ordered 08/20/21 Ordered By: Janie Mcdowell DS: Diagnosis Discharge Diagnosis (1) Colitis presumed infectious: Status: Resolved (2) Bloody diarrhea: Status: Resolved (3) Abnormal CT scan, colon: Status: Resolved (4) Colon polyp: Status: Acute
--- NOTE | 2021-08-21 12:14 | ANES.PREOP_ITS ---
General Info Date of Service Date Performed: 08/21/21 Height: 5 ft 2 in Weight: 75.07 kg Body Mass Index (BMI): 30.2 Surgical Procedure: Operation Date: 08/21/21 12:20 Proposed Procedures Side Surgeon scotty Mcdowell, DO Meds Allergies and Home Medications Allergies Allergy/AdvReac Type Severity Reaction Status Date / Time Penicillins Allergy Intermediate Skin Rash Unverified 08/21/21 12:22 codeine AdvReac Intermediate Nausea Unverified 08/21/21 12:22 Home Medication Medication Instructions Recorded Advair HFA 2 puff INHALATION BID PRN PRN 09/24/16 loratadine 10 mg PO DAILY 08/06/20 omeprazole 20 mg PO Q OTHER DAY 08/06/20 vitamin B complex 1 tab PO DAILY 08/06/20 multivitamin 1 tab PO DAILY 08/20/20 triamcinolone acetonide [Nasacort] 2 spray INTRANASAL DAILY PRN 12/30/20 acetaminophen 1,000 mg PO Q8H PRN PRN #90 cap 12/31/20 albuterol sulfate [ProAir HFA] 2 puff INHALATION Q4-5H 02/11/21 calcium carbonate [Calcium 500] 500 mg PO DAILY 02/11/21 glucosamine-chondroitin [Osteo 1 tab PO DAILY 02/11/21 Bi-Flex] ibuprofen 200 mg PO PRN PRN 02/11/21 cholecalciferol (vitamin D3) 25 25 mcg PO DAILY 08/17/21 mcg (1,000 unit) capsule magnesium 250 mg tablet 500 mg PO DAILY tab 08/17/21 montelukast 10 mg tablet 10 mg PO DAILY 08/17/21 omega-3 fatty acids 1,000 mg 2,000 mg PO BID cap 08/17/21 capsule Current Visit Medications: Current Medications Generic Name Dose Route Start Last Admin Trade Name Freq PRN Reason Stop Dose Admin Ringer's Solution 1,000 mls @ 80 mls/hr 08/21/21 06:00 IV 09/19/21 23:59 [facility] IV Miscellaneous Supplies 1 each 08/21/21 06:00 Iv Access IV 09/19/21 23:59 DIRECTED PRAVEEN Sodium Chloride 0 ml 08/21/21 06:00 Normal Saline Flush 10 Ml Syr IV 09/19/21 23:59 PRN PRN Sodium Chloride 0 ml 08/21/21 06:00 Normal Saline 10 Ml Vial IJ 09/19/21 23:59 DIRECTED PRN Sterile Water 0 ml 08/21/21 06:00 Water,Injection,Sterile 10 Ml Vial IJ 09/19/21 23:59 DIRECTED PRN PFSH Active Problems Active Problems: Problem Status Onset Code Abnormal CT scan, colon R93.3 Bloody diarrhea R19.7 Colitis presumed infectious K52.9 History of total left knee replacement 12/31/20 Z96.652 Bilateral primary osteoarthritis of hip M16.0 Osteoarthritis of right knee M17.11 Trochanteric bursitis of both hips 12/20/16 M70.61, M70.62 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 Epistaxis 05/27/14 R04.0 Bilateral hip joint arthritis 10/27/16 M16.0 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 M22.8X1 Osteoarthritis of left knee M17.12 Asthma J45.909 Myalgia M79.10 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 GERD (gastroesophageal reflux disease) K21.9 Basal cell carcinoma (BCC) of chest C44.519 Seborrheic keratoses L82.1 Cortical cataract of right eye 06/05/18 H26.9 Posterior subcapsular age-related cataract, right eye ~06/05/18 H25.041 Medical History Medical History Elevated blood pressure reading Skin lesion of face Surgical History Surgical History Abdominal hysterectomy Cholecystectomy H/O cataract removal with insertion of prosthetic lens R H/O total hip arthroplasty B/L hips H/O total knee replacement R TKA Ligation of fallopian tube Tobacco Smoking/Tobacco Use Status: Never Alcohol Alcohol Intake: current Alcohol intake frequency: holidays/special occasions only Substance Use Substance use: Never Substance use type: does not use Vital Signs and Lab Results Vital Signs Most Recent Vital Signs in EMR: Temp Pulse Resp BP Pulse Ox 36.7 C 58 L 16 133/84 99 08/21/21 12:31 08/21/21 12:31 08/21/21 12:31 08/21/21 12:31 08/21/21 12:31 Lab Results Blood Type / Crossmatch: No Data to Display Complete Blood Count: No Data to Display Complete Metabolic Panel: No Data to Display Liver Function Panel: No Data to Display Coagulation Panel: No Data to Display Cardiac Panel: No Data to Display Arterial Blood Gas: No Data to Display Venous Blood Gas: No Data to Display Pancreas Panel: No Data to Display Thyroid Panel: No Data to Display Infectious Disease: Coronavirus (COVID-19)(PCR) Negative (Negative) 08/19/21 09:32 08/19/21 Coronavirus 2019 Source Nasal/Nares 08/19/21 09:32 08/19/21 Blood Cultures: No Data to Display Toxicology Panel: No Data to Display Imaging and Studies Imaging and Studies Study information below may be from another EMR and interpreted by another provider. Please see original notes in EMR for more complete details. EKG Summary: Sinus bradycardia...rate< 60 Borderline prolonged ND interval...ND >222, V-rate 30- 49 08/24 Echocardiogram Summary: Conclusion Normal left ventricular wall thickness and chamber size. Estimated ejection fraction is 65%. There are no segmental wall motion abnormalities Normal right ventricular size and systolic function Both atria are normal in size There are no structural or hemodynamically significant valvular abnormalities Normal estima Anesthesia Assessment and Plan Anesthesia History Personal History: No History of Anesthesia Complications Family History: No Family History of Anesthesia Complications Exercise Tolerance Exercise Tolerance: Metabolic Equivalents>4 Pertinent Negatives Pertinent Negatives: No Symptoms of GERD Cardiac & Pulmonary Exam Cardiac Exam: Normal S1/S2 Heart Sounds Pulmonary Exam: Clear Bilateral Breath Sounds Implantable Cardiac Device Does patient have a Pacemaker or an ICD?: No Airway Exam Known Difficult Airway: No Mallampati Class: 2 Mouth Opening: Normal (> 3cm) Thyromental Distance: Greater than 3 cm Neck Range of Motion: Full ROM Neck Circumference: Normal Teeth Condition: Normal Dentition ASA Classification ASA Score: ASA 2 Emergency Case?: No NPO Status NPO Status: NPO Clears >2 hours, Solids >8 hours Anesthesia Plan Resuscitation Status: Full Code Anesthesia Technique: General Anesthesia Airway Planned: Natural Airway Monitors Used: Standard Monitors
[2021-08-21 12:31] VITALS: BP 133/84; PULSE 58; RESP 16; TEMP 36.7; O2SAT 99
[2021-08-21] MEDS: Lactated Ringers 1,000 ML 80 ML IV (12:50)
[2021-08-21 12:58] VITALS: BMI 30.2
--- NOTE | 2021-08-21 13:19 | BOWEL_PTH ---
PATIENT: Lupe Valderrama LOC: [facility] U#:[id number] AGE/SX: 65/F ROOM: RE08/21/[address]: Janie Mcdowell : 1955 BED: DIS: 08/21/2021 SPEC #: [id number] RECD: 08/21/21 13:40 STATUS: [place] RE #: [id number] [place]: 08/21/21 13:[address]: Janie Mcdowell DEPT: Surgical Specimen RECD BY: Janie Delgado ENTERED: 08/21/21 13:41 SP TYPE: Bowel OTHR DR: Favian Braga Tissues: 1 - BIOPSY BOWEL 2 - BIOPSY BOWEL Procedures: GROSS AND MICRO LEVEL 4 Comments: [id number]
[2021-08-21 13:40] VITALS: BP 106/63; PULSE 55; RESP 16; TEMP 36.2; O2SAT 99
--- NOTE | 2021-08-21 13:43 | W.ANESPOSTOP ---
Postoperative Evaluation Date, Time and Location Date Performed: 08/21/21 Time Performed: 13:43 Patient Location: Day Surgery Unit Vital Signs Most Recent Imported Vital Signs: Most Recent Vital Signs Temp Pulse Resp BP Pulse Ox 36.7 C 58 L 16 133/84 99 08/21/21 12:31 08/21/21 12:31 08/21/21 12:31 08/21/21 12:31 08/21/21 12:31 Most Recent Manually Entered Vital Signs: Adult Blood Pressure: 106/63 Heart Rate: 52 Respirations: 20 Oxygen Saturation (%): 97 Temperature (C): 36.2 C Pain Score (0-10 Scale): 0 Pain Score Most Recent Pain Score: Most Recent Pain Score Pain Level 0 08/21/21 12:31 Assessment Mental Status: Awake (Alert & Oriented to Patient Baseline) Airway and Respiratory Function: Patent airway with normal (patient baseline) respiratory exam Cardiovascular Function: Hemodynamically Stable Hydration Status: Adequately Hydrated Nausea & Vomiting: No Nausea or Vomiting Pain: Pt. Denies Any Pain Peripheral Nerve Block: Patient did not receive a nerve block
[2021-08-21 13:45] VITALS: BP 106/63; PULSE 52; RESP 20; TEMPC 36.2; O2SAT 97
[2021-08-21 14:10] VITALS: BP 136/72; PULSE 48; RESP 16; TEMP 36.2; O2SAT 97
== END 2021-08-21 14:41 | disposition home or self-care (01) ==
PROVIDERS: PCP Internal Medicine; Visit Provider Surgery
PROC: 0DJD8ZZ Inspection of Lower Intestinal Tract, Via Natural or Artificial Opening Endoscopic (ICD-10-PCS; CPT 45378; principal; 2021-08-21 12:15)
DX: R93.3 Abnormal findings on diagnostic imaging of other parts of digestive tract; K63.5 Polyp of colon; K92.1 Melena
CPT/HCPCS: 45380; 88305; J2704

== ENCOUNTER 2021-11-12 01:29 | Outpatient (CLI) | payer MEDICARE, BC, SELFPAY ==
--- NOTE | 2021-11-12 08:02 | DI.RAD_ITS ---
Exam(s) XR CHEST 2V PA LATERAL EXAM: XR CHEST 2V PA LATERAL CLINICAL HISTORY: MILD PERSISTENT ASTHMA, J45.30 TECHNIQUE: 2D digital imaging was performed. COMPARISON: CR CHEST 2 VIEWS PA,LAT from 01/10/2010 FINDINGS: The heart is not enlarged. The lungs are clear and well expanded. No pleural effusion seen. There is an apparent retrocardiac hiatus hernia, otherwise mediastinal contours appear intact. IMPRESSION: No evidence of acute process. RADIATION DOSE DELIVERED: Total DLP
== END 2021-11-12 01:49 ==
PROVIDERS: PCP Nurse Practitioner Family; Visit Provider Nurse Practitioner Family
DX: J45.30 Mild persistent asthma, uncomplicated (principal)
CPT/HCPCS: 71046

== ENCOUNTER 2021-11-23 03:41 | Outpatient (CLI) | payer MEDICARE, BC, SELFPAY ==
[2021-11-23] MEDS: Albuterol HFA 18 GM 200 PUFF INH IH (12:16)
[2021-11-23] MEDS: Inhaler, Assist Device 1 EACH MC (12:16)
[2021-11-23] MEDS: Methacholine 100 MG VIAL IH (12:16)
== END 2021-11-23 03:42 | disposition home or self-care (01) ==
LOC: RT 03:43
PROVIDERS: PCP Nurse Practitioner Family; Visit Provider Nurse Practitioner Family
DX: J45.30 Mild persistent asthma, uncomplicated (principal); J30.1 Allergic rhinitis due to pollen; R06.09 Other forms of dyspnea; Z82.5 Family history of asthma and other chronic lower respiratory diseases; R94.2 Abnormal results of pulmonary function studies
CPT/HCPCS: 94060; 94070; 94726; 94729; 94010; J7674

== ENCOUNTER 2022-01-04 11:28 | Outpatient (CLI) | payer MEDICARE, BC, SELFPAY ==
--- NOTE | 2022-01-04 11:00 | DI.RAD_ITS ---
Exam(s) XR KNEE LT 2V AP,LAT EXAM: XR KNEE LT 2V AP,LAT INDICATION: ANNUAL F/U L TKA. COMPARISON: CR XR KNEE LT 1V from 01/14/2021 TECHNIQUE: 2D digital imaging was performed. Two views. FINDINGS: There has been no change in the total knee prosthesis or appearance of the surrounding bone. DATA REPOSITORY: RADIATION DOSE DELIVERED:
== END 2022-01-04 11:29 | disposition home or self-care (01) ==
LOC: DIORS 11:28
PROVIDERS: PCP Nurse Practitioner Family; Referring Provider Nurse Practitioner Family; Visit Provider Student in an Organized Health Care Education/Training Program
DX: Z96.652 Presence of left artificial knee joint (principal)
CPT/HCPCS: 99213; 73560

== ENCOUNTER 2022-02-03 19:04 | Outpatient (REF) | payer MEDICARE, BC, SELFPAY ==
[2022-02-03 16:02] LABS: Abs Immature Grans 0.04 10^3/uL (0.0-0.06); Absolute Basophil Count 0.09 10^3/uL (0.0-0.2); Absolute Eosinophil Count 0.17 10^3/uL (0.0-0.7); Absolute Lymphocyte Count 2.14 10^3/uL (1.2-3.4); Absolute Monocyte Count 0.56 10^3/uL (0.1-0.8); Absolute Neutrophil Count 7.69 10^3/uL (1.2-6.7); Basophils % 0.8; Eosinophils % 1.6; HCT 34.6 % (36.0-46.0); HGB 9.5 g/dL (11.2-15.7); Immature Grans % 0.4; MCH 20.5 pg (27.0-33.0); MCHC 27.5 % (32.0-36.0); MCV 75 fL (80-95); MPV 9.2 fL (8.0-11.0); Monocytes % 5.2; RBC 4.64 10^6/uL (3.93-5.22); RDW 21.6 % (11.7-14.6); RDW-SD 54.4 fL; WBC 10.69 10^3/uL (4.4-10.8)
[2022-02-03 16:15] LABS: ALT 30 U/L (14-59); AST 12 U/L (15-37); Albumin 3.9 g/dL (3.4-5.0); Alkaline Phosphatase 85 U/L (46-116); Anion Gap 6.2 mmol/L (3-11); BUN 21 mg/dL (7-18); Bilirubin, Total 0.3 mg/dL (0.2-1.0); CO2 29.8 mmol/L (21.0-32.0); CREATININE 0.8 mg/dL (0.55-1.02); Calcium 9.5 mg/dL (8.5-10.1); Chloride 101 mmol/L (98-107); Glucose 95 mg/dL (74-106); Magnesium 2.2 mg/dL (1.8-2.4); Sodium 137 mmol/L (136-145); TSH 2.13 uIU/mL (0.36-3.74); Total Protein 8.2 g/dL (6.4-8.2)
[2022-02-03 16:38] LABS: Diff Comment Diff Reviewed; Platelet Count 886 10^3/uL (130-400)
[2022-02-03 16:39] LABS: Anisocytosis 2+; Hypochromasia 1+; Microcytosis 1+
== END 2022-02-03 19:05 | disposition home or self-care (01) ==
LOC: LBN 19:04
PROVIDERS: PCP Nurse Practitioner Family; Visit Provider Physician Assistant Medical
DX: R53.1 Weakness (principal)
CPT/HCPCS: 80053; 83735; 84443; 85025

== ENCOUNTER 2022-02-08 15:41 | Outpatient (REF) | payer MEDICARE, BC, SELFPAY ==
[2022-02-08 20:46] LABS: Abs Immature Grans 0.04 10^3/uL (0.0-0.06); Absolute Basophil Count 0.07 10^3/uL (0.0-0.2); Absolute Eosinophil Count 0.18 10^3/uL (0.0-0.7); Absolute Monocyte Count 0.66 10^3/uL (0.1-0.8); Basophils % 0.7; Eosinophils % 1.7; HCT 32.6 % (36.0-46.0); HGB 9.2 g/dL (11.2-15.7); Immature Grans % 0.4; Lymphocytes % 19.1; MCH 20.7 pg (27.0-33.0); MCHC 28.2 % (32.0-36.0); MCV 73 fL (80-95); MPV 9.2 fL (8.0-11.0); Monocytes % 6.3; Neutrophils % 71.8; Platelet Count 706 10^3/uL (130-400); RBC 4.45 10^6/uL (3.93-5.22); RDW 21.3 % (11.7-14.6); RDW-SD 54.5 fL; Reticulocyte 1.8 % (0.5-2.4); WBC 10.45 10^3/uL (4.4-10.8)
[2022-02-08 21:20] LABS: Anisocytosis 2+; Diff Comment RBC Morph Reviewed; Microcytosis 1+
[2022-02-08 21:21] LABS: Poikilocytes 1+
[2022-02-08 21:23] LABS: Hypochromasia 1+
[2022-02-08 21:25] LABS: Iron 20 ug/dL (50-170); Total Iron Binding Capacity 472 ug/dL (250-450); Transferrin Sat 4 % (15-50)
[2022-02-08 21:37] LABS: Ferritin 6 ng/mL (8-252); Vitamin B12 897 pg/mL (193-986)
== END 2022-02-08 15:42 | disposition home or self-care (01) ==
LOC: NCHCN 15:41
PROVIDERS: PCP Nurse Practitioner Family; Visit Provider Family Medicine
DX: D64.9 Anemia, unspecified (principal); D47.3 Essential (hemorrhagic) thrombocythemia
CPT/HCPCS: 82607; 82728; 83540; 83550; 85025; 85045

== ENCOUNTER 2022-02-18 18:11 | Outpatient (REF) | payer MEDICARE, BC, SELFPAY ==
[2022-02-18 18:34] LABS: HCT 33.2 % (36.0-46.0); HGB 9.3 g/dL (11.2-15.7); MCH 21.8 pg (27.0-33.0); MCV 78 fL (80-95); MPV 9.9 fL (8.0-11.0); Platelet Count 459 10^3/uL (130-400); RBC 4.26 10^6/uL (3.93-5.22); RDW 25.4 % (11.7-14.6)
== END 2022-02-18 18:12 | disposition home or self-care (01) ==
LOC: NCHCN 18:11
PROVIDERS: PCP Nurse Practitioner Family; Visit Provider Nurse Practitioner Family
DX: D64.9 Anemia, unspecified (principal)
CPT/HCPCS: 85027

== ENCOUNTER 2022-02-22 08:09 | Emergency (ER) | payer MEDICARE, BC, SELFPAY ==
[2022-02-22] VITALS (46 sets, daily range): BP systolic 109–139; BP diastolic 68–105; PULSE 44–62; RESP 9–17; TEMP 36.8; O2SAT 94–100
--- NOTE | 2022-02-22 08:00 | RT.EKG_ITS ---
APPROVED REPORT Exam: Resting ECG Reason for Exam: chest pain Patient Location: E HR:54 bpm ECG Measurements Heart Rate 54 AXIS NC 199 P 31 QRSd 77 QRS -19 QT 428 T 51 QTc 405 Conclusion Sinus bradycardia...rate< 60 sinus bradycardia at 54, normal axis, no acute ischemic changes, nondiagnostic EKG
--- NOTE | 2022-02-22 09:13 | ED.GENADUL_ITS ---
Discharge Plan Disposition Patient Disposition: HOME Condition: Good Discharge Details Clinical Impression: Chest pain, Shortness of breath Primary Care Provider: Jemma Chavez ED Provider: Luanne Padilla Home Meds and New Rx's Prescriptions: Continued magnesium 250 mg tablet 500 mg PO DAILY omega-3 fatty acids 1,000 mg capsule 2,000 mg PO BID cholecalciferol (vitamin D3) 25 mcg (1,000 unit) capsule 25 mcg PO DAILY montelukast 10 mg tablet 10 mg PO DAILY multivitamin Tablet 1 tab PO DAILY omeprazole 20 mg capsule,delayed release(DR/EC) 20 mg PO Q OTHER DAY vitamin B complex Tablet 1 tab PO DAILY Label Comments: pt unsure of dose loratadine 10 mg Tablet 10 mg PO DAILY ibuprofen 200 mg Capsule 200 mg PO PRN PRN calcium carbonate [Calcium 500] 500 mg calcium (1,250 mg) Tablet 500 mg PO DAILY albuterol sulfate [ProAir HFA] 90 mcg/actuation Hfa Aerosol Inhaler 2 puff INHALATION Q4-5H aspirin 81 mg Tablet 81 mg PO DAILY ferrous sulfate [iron] 325 mg (65 mg iron) Tablet 325 mg PO BID Advair HFA 12 GM HFA aerosol inhaler 2 puff Inhalation BID PRN PRN triamcinolone acetonide [Nasacort] 55 mcg Aerosol,[place] 2 spray INTRANASAL DAILY PRN acetaminophen 500 mg capsule 1,000 mg PO Q8H PRN PRNQty: 90 0RF Discharge Instructions Instructions: Chest Pain (ED), Dyspnea (ED) Additional Instructions: Please return immediately to the emergency department if you develop any new or worsening symptoms, if your condition does not improve as expected, or if you become otherwise concerned. It is extremely important that you call soon as possible to make an appointment to be seen in follow-up for this visit by your primary care doctor. It is also extremely important that you undergo a stress test as we discussed. Referrals: Jemma Chavez [Primary Care Provider] - Discharge Data Discharge Date/Time-TO BE ENTERED AT DEPARTURE: 02/22/22 14:26 Medical Decision Making Lupe Valderrama is a 66-year-old woman with a history of GERD, iron deficiency anemia, asthma presenting to emergency department with chest pain. Patient is accompanied by her who also present history. Patient reports that over the last few months, since early winter, she has noticed that her Advair does not seem to be working as it used to, and she feels more short of breath with exertion than in the past. Patient reports that this has been very gradually worsening over time. She states that she used to be quite active, riding bike, etc. but has not been able to as she tends to get out of breath after walking 100 feet or so. Patient reports that there has been no acute change, and this has been gradually progressive over several months. Patient reports that she has been diagnosed with iron deficiency anemia, and has been taking oral iron over the past week. She reports that she had labs performed, and states that there was no change in her iron levels despite taking iron supplementation. Patient reports that this morning she got up, took her morning medications with water, walk from the kitchen to the living room and noticed substernal chest pressure. Patient reports that she sat down to rest, and symptoms gradually began to improve. She reports that by the time she was situated in the emergency department exam room, chest pain had resolved entirely. She rates her current pain at 0 out of 10. Patient reports that severity of pain was moderate at worst. She denies having had any other pain. She denies current sensation of breath, denies fever, cough, vomiting, diarrhea, numbness, weakness, rash, swelling. She denies travel other than spending several days in [place] in early January. No recent surgeries. On exam Pt is well and non-toxic appearing. Benign cardiopulmonary exam. No chest wall or abdominal TTP. Concern for ACS, GI etiology of chest pain, less likely PE, CHF, other. Exam/hx at this time is not c/w acute aortic process, acute emergent intra-abdominal etiology, sepsis. Plan for EKG, IV placement, screening labs, telemetry, imaging pending D-dimer. Will monitor and reassess. Plan for repeat trop, repeat EKG if initial w/u negative. EKG non-diagnostic. labs reviewed, trop negative, d-dimer elevated. Plan for CT chest. CT chest shows hiatal hernia, atelectasis. Pt with no pain or symptoms for ED stay. Reports that she feels well and at baseline. Repeat trop and EKG without significant change. Plan for outpt f/u, outpt stress test. I had a discussion with Patient regarding return to emergency department precautions, home care, and importance of outpatient follow-up. Pt verbalizes understanding of the plan and is amenable. Patient discharged to home with clear plan for outpatient follow-up. All questions were answered. Disposition decision was made weighing the risks and benefits of hospitalization versus outpatient treatment, the risk for further decompensation, and the patient's wishes. Medical Records Medical records reviewed: Yes I reviewed the patient's medical records. Imaging Data Radiologic Study: Attestation: I personally reviewed and interpreted this imaging study as follows: Radiologist's impression: EXAM: ? CT CHEST PE CTA CLINICAL HISTORY: ? chest pain. TECHNIQUE:? Imaging Protocol:? Axial CT angiography was performed with multi- slice acquisition and multi-planar and/or 3D reconstructions. CONTRAST MATERIAL:? Intravenous: Omnipaque 350ml contrast volume:75 mL COMPARISON:? CT CT ABDOMEN ? PELVIS W from 02/11/2021 FINDINGS: Tracheobronchial tree: Patent where visualized. Pulmonary parenchyma: No consolidation or dominant measurable mass. Scar atelectasis is seen in the left lingula.? Dependent atelectasis is seen in the lung bases.? Pulmonary Arteries: No evidence of filling defect to suggest pulmonary emboli. Mediastinum and Vijaya: No dominant adenopathy or fluid collection.? The esophagus is unremarkable.? There is a large hiatal hernia. Visualized thyroid gland: Unremarkable.? Pleura: No effusion or pneumothorax. Heart: The heart is not dilated. No coronary artery calcifications are seen. No pericardial effusion.? Aorta: Thoracic aorta non-dilated. Mild atherosclerosis.? No evidence of dissection.? Upper abdomen:? Status post cholecystectomy.? Soft tissues: Unremarkable.? Bones: Within normal limits for the patient's age. IMPRESSION: 1. No evidence of pulmonary embolism, thoracic aortic dissection or aneurysm. 2. Results of this exam have been verbally communicated with provider. Lab Data Lab results reviewed: Yes I reviewed the patient's lab results. Labs: Laboratory Tests Range/Units 02/22/22 02/22/22 02/22/22 08:30 08:30 08:30 WBC (4.4-10.8) 10^3/uL 9.89 RBC (3.93-5.22) 10^6/uL 4.52 Hgb (11.2-15.7) g/dL 10.3 L Hct (36.0-46.0) % 35.8 L MCV (80-95) fL 79 L MCH (27.0-33.0) pg 22.8 L MCHC (32.0-36.0) % 28.8 L D RDW (11.7-14.6) % 28.2 H Plt Count (130-400) 10^3/uL 415 H MPV (8.0-11.0) fL 9.6 Immature Gran % 0.4 Neutrophils % 74.9 Lymphocytes % 14.8 Monocytes % 7.0 Eosinophils % 2.4 Basophils % 0.5 Nucleated RBC % (0.0-0.3) % 0.0 Absolute Neutrophils (1.2-6.7) 10^3/uL 7.41 H Absolute Lymphocytes (1.2-3.4) 10^3/uL 1.46 Absolute Monocytes (0.1-0.8) 10^3/uL 0.69 Absolute Eosinophils (0.0-0.7) 10^3/uL 0.24 Absolute Basophils (0.0-0.2) 10^3/uL 0.05 RBC Morphology See Below Anisocytosis 2+ D-Dimer (<500) ng/mlFEU 842 H Sodium (136-145) mmol/L 137 Potassium (3.5-5.1) mmol/L 4.1 Chloride (98-107) mmol/L 100 Carbon Dioxide (21.0-32.0) mmol/L 29.4 Anion Gap (3-11) mmol/L 7.6 BUN (7-18) mg/dL 18 Creatinine (0.55-1.02) mg/dL 0.8 Estimated GFR/1.73 m2 (mL/min/1.73m2) >= 60.00 Glucose (74-106) mg/dL 66 L Calcium (8.5-10.1) mg/dL 9.3 Total Bilirubin (0.2-1.0) mg/dL 0.3 AST (15-37) U/L 22 ALT (14-59) U/L 18 Alkaline Phosphatase (46-116) U/L 65 Troponin I (<or=60) ng/L < 50 NT-Pro-B Natriuret Pep (<300) pg/mL 45 Total Protein (6.4-8.2) g/dL 7.7 Albumin (3.4-5.0) g/dL 3.4 Range/Units 02/22/22 11:43 WBC (4.4-10.8) 10^3/uL RBC (3.93-5.22) 10^6/uL Hgb (11.2-15.7) g/dL Hct (36.0-46.0) % MCV (80-95) fL MCH (27.0-33.0) pg MCHC (32.0-36.0) % RDW (11.7-14.6) % Plt Count (130-400) 10^3/uL MPV (8.0-11.0) fL Immature Gran % Neutrophils % Lymphocytes % Monocytes % Eosinophils % Basophils % Nucleated RBC % (0.0-0.3) % Absolute Neutrophils (1.2-6.7) 10^3/uL Absolute Lymphocytes (1.2-3.4) 10^3/uL Absolute Monocytes (0.1-0.8) 10^3/uL Absolute Eosinophils (0.0-0.7) 10^3/uL Absolute Basophils (0.0-0.2) 10^3/uL RBC Morphology Anisocytosis D-Dimer (<500) ng/mlFEU Sodium (136-145) mmol/L Potassium (3.5-5.1) mmol/L Chloride (98-107) mmol/L Carbon Dioxide (21.0-32.0) mmol/L Anion Gap (3-11) mmol/L BUN (7-18) mg/dL Creatinine (0.55-1.02) mg/dL Estimated GFR/1.73 m2 (mL/min/1.73m2) Glucose (74-106) mg/dL Calcium (8.5-10.1) mg/dL Total Bilirubin (0.2-1.0) mg/dL AST (15-37) U/L ALT (14-59) U/L Alkaline Phosphatase (46-116) U/L Troponin I (<or=60) ng/L < 50 NT-Pro-B Natriuret Pep (<300) pg/mL Total Protein (6.4-8.2) g/dL Albumin (3.4-5.0) g/dL ECG Data Attestation: I personally reviewed and interpreted this ECG (s) as follows: Interpretation: EKG shows sinus bradycardia at 54, normal axis, no acute ischemic changes, nondiagnostic EKG Repeat EKG shows sinus timothy at 47, normal axis, no acute ischemic changes, non- diagnostic EKG HPI General Mode of arrival: ambulatory . Date/Time Provider Initiated Documentation: 02/22/22 08:40 . Limitations to Documentation: no limitations . Information obtained by: patient, family, RN notes reviewed and old records reviewed . HPI Narrative: Lupe Valderrama is a 66-year-old woman with a history of GERD, iron deficiency anemia, asthma presenting to emergency department with chest pain. Patient is accompanied by her who also present history. Patient reports that over the last few months, since early winter, she has noticed that her Advair does not seem to be working as it used to, and she feels more short of breath with exertion than in the past. Patient reports that this has been very gradually worsening over time. She states that she used to be quite active, riding bike, etc. but has not been able to as she tends to get out of breath after walking 100 feet or so. Patient reports that there has been no acute change, and this has been gradually progressive over several months. Patient reports that she has been diagnosed with iron deficiency anemia, and has been taking oral iron over the past week. She reports that she had labs performed, and states that there was no change in her iron levels despite taking iron supplementation. Patient reports that this morning she got up, took her morning medications with water, walk from the kitchen to the living room and noticed substernal chest pressure. Patient reports that she sat down to rest, and symptoms gradually began to improve. She reports that by the time she was situated in the emergency department exam room, chest pain had resolved entirely. She rates her current pain at 0 out of 10. Patient reports that severity of pain was moderate at worst. She denies having had any other pain. She denies current sensation of breath, denies fever, cough, vomiting, diarrhea, numbness, weakness, rash, swelling. She denies travel other than spending several days in [place] in early January. No recent surgeries. Related Data Home Medications Medication Instructions Recorded Confirmed fluticasone propionate 115 2 puff inhalation BID PRN PRN 09/24/16 02/22/22 mcg-salmeterol 21 mcg/actuation HFA inhaler (Advair HFA) loratadine 10 mg tablet 10 mg PO DAILY 08/06/20 02/22/22 omeprazole 20 mg capsule,delayed 20 mg PO Q OTHER DAY 08/06/20 02/22/22 release vitamin B complex 1 tab PO DAILY 08/06/20 02/22/22 multivitamin 1 tab PO DAILY 08/20/20 02/22/22 triamcinolone acetonide 55 mcg 2 spray intranasal DAILY PRN 12/30/20 02/22/22 nasal spray aerosol (Nasacort) acetaminophen 500 mg capsule 1,000 mg PO Q8H PRN PRN #90 caps 12/31/20 02/22/22 albuterol sulfate 90 mcg/actuation 2 puff inhalation Q4-5H 02/11/21 02/22/22 aerosol inhaler (ProAir HFA) calcium carbonate 500 mg calcium 500 mg PO DAILY 02/11/21 02/22/22 (1,250 mg) tablet (Calcium 500) ibuprofen 200 mg capsule 200 mg PO PRN PRN 02/11/21 02/22/22 cholecalciferol (vitamin D3) 25 25 mcg PO DAILY 08/17/21 02/22/22 mcg (1,000 unit) capsule magnesium 250 mg tablet 500 mg PO DAILY 08/17/21 02/22/22 montelukast 10 mg tablet 10 mg PO DAILY 08/17/21 02/22/22 omega-3 fatty acids 1,000 mg 2,000 mg PO BID 08/17/21 02/22/22 capsule aspirin 81 mg tablet 81 mg PO DAILY 02/22/22 02/22/22 ferrous sulfate 325 mg (65 mg 325 mg PO BID 02/22/22 02/22/22 iron) tablet (iron) Previous Rx's Medication Instructions Recorded acetaminophen 500 mg capsule 1,000 mg PO Q8H PRN PRN #90 caps 12/31/20 Allergies Allergy/AdvReac Type Severity Reaction Status Date / Time Penicillins Allergy Intermediate Skin Rash Unverified 02/22/22 08:43 codeine AdvReac Intermediate Nausea Unverified 02/22/22 08:43 General Stated Complaint: Chest Pain MAYITO: 3 Review of Systems Narrative: Constitutional: denies fevers Eyes: denies eye pain ENT: denies ear pain, dental pain, sore throat Cardiovascular: Reports chest pain at 730 this morning, now resolved, denies edema Respiratory: Reports shortness of breath as per HPI, denies cough GI: denies abdominal pain, vomiting, diarrhea : denies flank pain MSK: denies back pain, neck pain, arthralgias, myalgias Skin: denies rash Neuro: denies headaches, numbness, weakness PFSH All Active Problems (Updated 02/22/22 @ 14:14 by Luanne Padilla MD) Chest pain (Acute) Shortness of breath (Acute) Iron deficiency anemia (Acute) Colon polyp (Acute ~08/21/21) History of total left knee replacement (Acute 12/31/20) Bilateral primary osteoarthritis of hip (Acute) Osteoarthritis of right knee (Acute) Trochanteric bursitis of both hips (Acute 12/20/16) 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) Epistaxis (Acute 05/27/14) Bilateral hip joint arthritis (Acute 10/27/16) 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 (Acute) Maltracking of right patella (Acute) Osteoarthritis of left knee (Acute) Asthma (Chronic) Myalgia (Acute) Chondrodermatitis nodularis helicis (Acute) GERD (gastroesophageal reflux disease) (Chronic) Basal cell carcinoma (BCC) of chest (Acute) Seborrheic keratoses (Acute) Medical History Elevated blood pressure reading Skin lesion of face Surgical History Abdominal hysterectomy Cholecystectomy H/O cataract removal with insertion of prosthetic lens R H/O total hip arthroplasty B/L hips H/O total knee replacement R TKA History of colonoscopy with polypectomy (~08/21/21) Ligation of fallopian tube Social History Smoking/Tobacco Use Status: Never Smoking risk assessment performed?: Yes Alcohol Intake: current Alcohol Intake frequency: holidays/special occasions only Drug use: Never Substance use type: does not use Current gender identity: female Do you feel safe at home: Yes Do you feel safe in your relationship?: Yes Exam Narrative Exam Narrative: Constitutional: well and [id number], pleasant, conversing normally HENT: head atraumatic/normocephalic/normal inspection, mucous membranes moist Eyes: conjunctiva normal, sclera normal, pupils 3mm b/l Neck: no stridor, normal ROM, trachea midline Chest: normal inspection, sternum/anterior chest wall nontender to palpation Resp: normal work of breathing, LCTAB Cardio: normal rate, normal rhythm, no murmur appreciated GI: abdomen soft, non-tender, non-distended Back: normal inspection, no rash Skin: warm, dry, normal color, no rash Neuro: alert, not altered, grossly non-focal, normal tone Ext: no edema, no posterior calf tenderness to palpation Psych: normal mood, normal affect, normal behavior Course Vital Signs Vital signs: Vital Signs Respiratory Rate 15 02/22/22 08:19 Temperature 36.8 C 02/22/22 08:20 Pulse 50 L 02/22/22 08:46 Pulse 52 L 02/22/22 08:46 Respiratory Rate 12 02/22/22 08:46 Respiratory Effort Non-Labored 02/22/22 08:39 Respiratory Depth Normal 02/22/22 08:39 Respiratory Pattern Normal 02/22/22 08:39 Blood Pressure 131/82 02/22/22 08:46 Blood Pressure Mean 95 02/22/22 08:46 Blood Pressure Position Supine 02/22/22 08:20 Pulse Oximetry 97 02/22/22 08:46 Oxygen Delivery Method Room Air 02/22/22 08:20 Oxygen Flow Rate 0 02/22/22 08:20 Pain Level 0 02/22/22 08:39
[2022-02-22 09:23] LABS: Abs Immature Grans 0.04 10^3/uL (0.0-0.06); Absolute Basophil Count 0.05 10^3/uL (0.0-0.2); Absolute Eosinophil Count 0.24 10^3/uL (0.0-0.7); Absolute Lymphocyte Count 1.46 10^3/uL (1.2-3.4); Absolute Monocyte Count 0.69 10^3/uL (0.1-0.8); Absolute Neutrophil Count 7.41 10^3/uL (1.2-6.7); Basophils % 0.5; Eosinophils % 2.4; HCT 35.8 % (36.0-46.0); HGB 10.3 g/dL (11.2-15.7); Immature Grans % 0.4; Lymphocytes % 14.8; MCH 22.8 pg (27.0-33.0); MCHC 28.8 % (32.0-36.0); MCV 79 fL (80-95); MPV 9.6 fL (8.0-11.0); Neutrophils % 74.9; Platelet Count 415 10^3/uL (130-400); RBC 4.52 10^6/uL (3.93-5.22); RDW 28.2 % (11.7-14.6); RDW-SD 79.6 fL; WBC 9.89 10^3/uL (4.4-10.8)
[2022-02-22 09:51] LABS: ALT 18 U/L (14-59); AST 22 U/L (15-37); Albumin 3.4 g/dL (3.4-5.0); Alkaline Phosphatase 65 U/L (46-116); Anion Gap 7.6 mmol/L (3-11); BUN 18 mg/dL (7-18); Bilirubin, Total 0.3 mg/dL (0.2-1.0); CO2 29.4 mmol/L (21.0-32.0); CREATININE 0.8 mg/dL (0.55-1.02); Calcium 9.3 mg/dL (8.5-10.1); Chloride 100 mmol/L (98-107); Glucose 66 mg/dL (74-106); NT-proBNP 45 pg/mL (<300); Potassium 4.1 mmol/L (3.5-5.1); Sodium 137 mmol/L (136-145); Total Protein 7.7 g/dL (6.4-8.2); Troponin I < 50 ng/L (<or=60)
[2022-02-22 09:58] LABS: Anisocytosis 2+; D-Dimer 842 ng/mlFEU (<500); Diff Comment RBC Morph Reviewed
--- NOTE | 2022-02-22 11:15 | RT.EKG_ITS ---
APPROVED REPORT Exam: Resting ECG Reason for Exam: Chest Pain Patient Location: E HR:47 bpm ECG Measurements Heart Rate 47 AXIS OH 209 P 35 QRSd 76 QRS -20 QT 484 T 52 QTc 430 Conclusion Sinus bradycardia...rate< 60 sinus timothy at 47, normal axis, no acute ischemic changes, non-diagnostic EKG
[2022-02-22 12:12] LABS: Troponin I < 50 ng/L (<or=60)
[2022-02-22] MEDS: Omnipaque 350 MG/ML 100 ML BTL IJ (12:29)
--- NOTE | 2022-02-22 12:40 | DI.CT_ITS ---
Exam(s) CT CHEST PE CTA EXAM: CT CHEST PE CTA CLINICAL HISTORY: chest pain. TECHNIQUE: Imaging Protocol: Axial CT angiography was performed with multi-slice acquisition and mu lti-planar and/or 3D reconstructions. CONTRAST MATERIAL: Intravenous: Omnipaque 350ml contrast volume:75 mL COMPARISON: CT CT ABDOMEN PELVIS W from 02/11/2021 FINDINGS: Tracheobronchial tree: Patent where visualized. Pulmonary parenchyma: No consolidation or dominant measurable mass. Scar atelectasis is seen in the l eft lingula. Dependent atelectasis is seen in the lung bases. Pulmonary Arteries: No evidence of filling defect to suggest pulmonary emboli. Mediastinum and Vijaya: No dominant adenopathy or fluid collection. The esophagus is unremarkable. Th ere is a large hiatal hernia. Visualized thyroid gland: Unremarkable. Pleura: No effusion or pneumothorax. Heart: The heart is not dilated. No coronary artery calcifications are seen. No pericardial effusion. Aorta: Thoracic aorta non-dilated. Mild atherosclerosis. No evidence of dissection. Upper abdomen: Status post cholecystectomy. Soft tissues: Unremarkable. Bones: Within normal limits for the patient's age. IMPRESSION: 1. No evidence of pulmonary embolism, thoracic aortic dissection or aneurysm. 2. Results of this exam have been verbally communicated with provider. RADIATION DOSE DELIVERED: 423.01mGy.cm Total DLP DATA REPOSITORY: All CT scans at this facility are submitted to the National Radiology Data Registry (NRDR) Dose Index Registry (DIR) with the [employer] (ACR). RADIATION OPTIMIZATION: All CT scans at this facility use at least one of these dose optimization te chniques: automated exposure control; mA and/or kV adjustment per patient size (includes targeted exa ms where dose is matched to clinical indication); or iterative reconstruction.
--- NOTE | 2022-02-22 14:51 | NUR.NOTE ---
Nursing Note: Faxed to [facility] regular exercise treadmill test (stress test) for chest pain. Instructions given to pt.
== END 2022-02-22 14:26 | disposition home or self-care (01) ==
PROVIDERS: Emergency Provider Student in an Organized Health Care Education/Training Program; PCP Nurse Practitioner Family
DX: R07.9 Chest pain, unspecified (principal); R06.02 Shortness of breath
CPT/HCPCS: 36415; 71275; 80053; 93005; 99285; 83880; 84484; 85025; 85379; 93010; 99284; J3490

== ENCOUNTER 2022-02-26 16:30 | Outpatient (REF) | payer MEDICARE, BC, SELFPAY ==
[2022-02-26 18:59] LABS: Abs Immature Grans 0.03 10^3/uL (0.0-0.06); Absolute Basophil Count 0.06 10^3/uL (0.0-0.2); Absolute Eosinophil Count 0.22 10^3/uL (0.0-0.7); Absolute Lymphocyte Count 2.05 10^3/uL (1.2-3.4); Absolute Monocyte Count 0.59 10^3/uL (0.1-0.8); Absolute Neutrophil Count 6.89 10^3/uL (1.2-6.7); Basophils % 0.6; Eosinophils % 2.2; HCT 33.7 % (36.0-46.0); HGB 9.9 g/dL (11.2-15.7); Immature Grans % 0.3; Lymphocytes % 20.8; MCH 23.7 pg (27.0-33.0); MCHC 29.4 % (32.0-36.0); MCV 81 fL (80-95); MPV 10.1 fL (8.0-11.0); Neutrophils % 70.1; Platelet Count 411 10^3/uL (130-400); RBC 4.18 10^6/uL (3.93-5.22); RDW 29.2 % (11.7-14.6); RDW-SD 80.3 fL; WBC 9.84 10^3/uL (4.4-10.8)
[2022-02-26 19:08] LABS: Iron 36 ug/dL (50-170); Total Iron Binding Capacity 391 ug/dL (250-450); Transferrin Sat 9 % (15-50)
[2022-02-26 19:20] LABS: Ferritin 20 ng/mL (8-252)
[2022-02-26 20:45] LABS: Anisocytosis 3+; Diff Comment RBC Morph Reviewed
== END 2022-02-26 16:31 | disposition home or self-care (01) ==
LOC: NCHCN 16:30
PROVIDERS: PCP Nurse Practitioner Family; Visit Provider Nurse Practitioner Family
DX: D64.9 Anemia, unspecified (principal)
CPT/HCPCS: 82728; 83540; 83550; 85025

== ENCOUNTER → 2022-03-01 01:42 | Outpatient (CLI) | payer MEDICARE, BC, SELFPAY ==
--- NOTE | 2022-03-01 09:00 | ETT_ITS ---
APPROVED REPORT Exam: Exercise Treadmill Patient Location: Out-Patient Room/Bed: Stress Nurse: Kate Kirby RN Ordering Provider:RUTHTito DUDLEY, Contact Number: [phone] BMI: 29.26 Baseline Rhythm: Sinus Rhythm Indications: Chest pain Medical History Medical History: Iron deficiency anemia, GERD, asthma Cardiac Medications: Aspirin, albuterol, iron, omeprazole, advair Allergies: Penicillins, Codeine Cardiac Risk Factors: Asthma, borderline HLD Previous Cardiac Procedures: None Pretest Chest Pain Characteristics: None Exercise History: Indeterminate Physical Disabilities: None Lung Sounds: Lungs clear to air bilaterally Heart Sounds: S1/S2, distant Stress Test Details Test: Exercise stress testing was performed using a Kurt protocol. Rest Stress HR Resting HR Supine: 62 bpm Max Heart Rate (APMHR): 153 bpm Resting HR Standin bpm Target HR (85% APMHR): 130 bpm Max HR Achieved: 120 bpm % of APMHR: 78 Recovery HR: 75 bpm HR response to stress: Normal HR response to stress BP Resting BP Supine: 134/90 mmHg Resting BP Standin/70 mmHg Max BP: 170/82 mmHg Recovery BP: 138/80 mmHg BP response to stress: Normal blood pressure response to stress. ECG Resting ECG: Sinus Rhythm Ectopy: None Comment: Inverted T wave in aVL Stress ECG: Sinus Tachycardia ST Change: No significant ST segment changes noted, Nondiagnostic low heart rate Arrhythmia: Rare PAC Recovery ECG: Sinus Rhythm Recovery ST Change: No significant ST segment changes noted, Nondiagnostic low heart rate Recovery Arrhythmia: PAC's Clinical Reason for Termination: Fatigue, Dyspnea Stress Symptoms: Dyspnea Exercise duration: 4 min58 sec Highest Stage Reached: Stage 1: 1.7 mph at 10% grade. Exercise capacity: 6.97 METs Angina Score: None Layne Treadmill Score: 4.6 Rate Pressure Product: 85075 Stress ECG Conclusion 1. Resting electrocardiogram showed poor R wave progression 2. Patient exercised on the Kurt protocol completed a workload of 6.97 METS, stopping due to dyspnea 3. Normal hemodynamic response to exercise. The patient achieved 78% of predicted heart rate for age 4. No electrocardiographic evidence of myocardial ischemia was seen at a submaximal heart rate 5. Overall the test was nondiagnostic due to inadequate heart rate achieved Layne Treadmill Score is 4.6 which is Moderate risk. Stress Test Summary STAGE Time (mins) Speed (mph) Grade (%) HR BP SYMPTOMS METS Supine 62 134/90 Standing 59 122/70 1 3 1.7 10 108 168/70 4.6 2 6 2.5 12 120 7 1 min recovery 99 144/58 3 min recovery 72 170/82 6 min recovery 67 152/78 8 min recovery 73 138/80 Patient stopped exercise due to leg fatigue and close to severe shortness of breath. Once treadmill stopped patient recovered quickly and reported normal breathing efforts within 3 minutes of ending e xercise. Heart rate max with test manually calculated at 120 bpm.
== END ==
PROVIDERS: PCP Nurse Practitioner Family; Visit Provider Student in an Organized Health Care Education/Training Program
DX: R07.9 Chest pain, unspecified (principal)
CPT/HCPCS: 93016; 93018; 93017

== ENCOUNTER 2022-03-10 18:48 | Outpatient (REF) | payer MEDICARE, BC, SELFPAY ==
[2022-03-10 16:08] LABS: BUN 21 mg/dL (7-18); CREATININE 0.7 mg/dL (0.55-1.02); Calcium 9.1 mg/dL (8.5-10.1); Chloride 101 mmol/L (98-107); Ferritin 20 ng/mL (8-252); Glucose 82 mg/dL (74-106); Potassium 4.1 mmol/L (3.5-5.1); Sodium 138 mmol/L (136-145)
[2022-03-10 16:11] LABS: Iron 150 ug/dL (50-170); Total Iron Binding Capacity 384 ug/dL (250-450); Transferrin Sat 39 % (15-50)
[2022-03-10 16:23] LABS: Abs Immature Grans 0.03 10^3/uL (0.0-0.06); Absolute Basophil Count 0.09 10^3/uL (0.0-0.2); Absolute Eosinophil Count 0.13 10^3/uL (0.0-0.7); Absolute Lymphocyte Count 1.77 10^3/uL (1.2-3.4); Absolute Monocyte Count 0.71 10^3/uL (0.1-0.8); Absolute Neutrophil Count 6.03 10^3/uL (1.2-6.7); Eosinophils % 1.5; HCT 38.5 % (36.0-46.0); HGB 11.4 g/dL (11.2-15.7); Immature Grans % 0.3; Lymphocytes % 20.2; MCH 25.4 pg (27.0-33.0); MCHC 29.6 % (32.0-36.0); MCV 86 fL (80-95); MPV 9.8 fL (8.0-11.0); Monocytes % 8.1; Neutrophils % 68.9; Platelet Count 407 10^3/uL (130-400); RBC 4.49 10^6/uL (3.93-5.22); WBC 8.76 10^3/uL (4.4-10.8)
[2022-03-10 19:34] LABS: Anisocytosis 3+; Diff Comment RBC Morph Reviewed
== END 2022-03-10 18:49 | disposition home or self-care (01) ==
LOC: NCHCN 18:48
PROVIDERS: PCP Nurse Practitioner Family; Visit Provider Nurse Practitioner Family
DX: D64.9 Anemia, unspecified (principal)
CPT/HCPCS: 80048; 82728; 83540; 83550; 85025

== ENCOUNTER → 2022-03-24 08:34 | Outpatient (BNVA) | payer MEDICARE, BC, SELFPAY | PROVIDERS: PCP Nurse Practitioner Family; Referring Provider Nurse Practitioner Family; Visit Provider Surgery | DX: Z86.010 Personal history of colon polyps (principal); R19.5 Other fecal abnormalities; D64.9 Anemia, unspecified | CPT/HCPCS: 99202; 99214 ==

== ENCOUNTER → 2022-04-07 02:05 | Outpatient (CLI) | payer MEDICARE, BC, SELFPAY ==
--- NOTE | 2022-04-07 | DI.MAMMO_ITS ---
Exam(s) MAMMO SCREENING EXAM: MAMMO SCREENING CLINICAL HISTORY: SCREENING EXAM FOR BREAST CANCER Z12.39 TECHNIQUE: Mammograms were interpreted according to the usual protocol including computer analysis w [employer] CAD system, tomosynthesis and C-view imaging. COMPARISON: 2012 through 2020 FINDINGS: The breasts are composed of scattered fibroglandular densities, Breast Density category B. No suspicious masses or suspicious microcalcifications are seen. No skin thickening or abnormal axillary lymph nodes are seen. There has been no significant change from prior exams. IMPRESSION: BI-RADS Category 1, Negative mammogram Yearly screening mammography is recommended. Breast Density - Category B, scattered fibroglandular densities. A negative radiographic report should not delay biopsy if a dominant or clinically suspicious mass is present. Up to ten percent of cancers are not identified on mammography. A negative report may reinforce clinical impression. Adenosis and dense breasts may obscure an underlying neoplasm. False positive reports average 6 to 10%. Patient will receive a letter notifying them of these results.
== END ==
PROVIDERS: PCP Nurse Practitioner Family; Visit Provider Nurse Practitioner Family
DX: Z12.31 Encounter for screening mammogram for malignant neoplasm of breast (principal)
CPT/HCPCS: 77063; 77067

== ENCOUNTER 2022-04-13 09:26 | Day surgery (SDC) | payer MEDICARE, BC, SELFPAY ==
--- NOTE | 2022-04-12 16:37 | W.COLOREPORT ---
Colonoscopy Report Date of procedure: 04/13/22 Pre-op diagnosis general: Anemia/Hemoccult positive/history of diverticula Post-op diagnosis procedure note: other (Minor diverticula of the sigmoid colon/no polyps) Surgeon: Janie Mcdowell Anesthesia Type: General:No Airway Estimated blood loss (mL): 0 Pathology: other Complications: None Disposition: same day Prep: Miralax/Dulcolax Retraction Time: 7 Procedure Description: After informed consent was obtained the patient was taken to the procedure room and placed in a left decubitous position. Monitors were applied and a time out was done. The patients name, date of , procedure, allergies to medications and metal in their body was reviewed. The patient was then sedated. Once sedated and comfortable a rectal exam was done. External exam was normal. Internal exam revealed a normal sphincter tone and no palpable masses. The scope was then introduced and retrofelexed. No internal hemorrhoids were identified. The scope was then advanced to the cecum w/out difficulty. The TI and appendiceal orifice were identified. The prep was BB PS 3 in all segments for a total of 9. The scope was then slowly retracted over 7 minutes back into the rectum. there are no polyps visualized. The mucosa appears pink and healthy. She has minor diverticula confined to the sigmoid colon with no signs of active bleeding or infection. the scope was removed and the patient was woken up and taken back to Same day surgery in stable condition. The patient tolerated the procedure well and there were no immediate complications. Follow up: The patient should follow up in 10 years unless they develop changes in bowel habits or other new gastrointestinal complaints.
[2022-04-13 09:36] VITALS: BP 145/87; PULSE 55; RESP 17; TEMP 36.5; O2SAT 97
[2022-04-13] MEDS: Lactated Ringers 1,000 ML 80 ML IV (09:57)
--- NOTE | 2022-04-13 10:12 | W.ANESPRE ---
General Info Date of Service Date Performed: 04/13/22 Height: 5 ft 1 in Weight: 72.5 kg Body Mass Index (BMI): 30.2 Surgical Procedure: Operation Date: 04/13/22 10:50 Proposed Procedure Side Surgeon scotty Mcdowell, Meds Allergies and Home Medications Allergies Allergy/AdvReac Type Severity Reaction Status Date / Time Penicillins Allergy Intermediate Skin Rash Verified 04/13/22 09:45 codeine AdvReac Intermediate Nausea Verified 04/13/22 09:45 Home Medication Medication Instructions Recorded fluticasone propionate 115 2 puff inhalation BID PRN PRN 09/24/16 mcg-salmeterol 21 mcg/actuation HFA inhaler (Advair HFA) loratadine 10 mg tablet 10 mg PO DAILY 08/06/20 omeprazole 20 mg capsule,delayed 20 mg PO Q OTHER DAY 08/06/20 release vitamin B complex 1 tab PO DAILY 08/06/20 multivitamin 1 tab PO DAILY 08/20/20 triamcinolone acetonide 55 mcg 2 spray intranasal DAILY PRN 12/30/20 nasal spray aerosol (Nasacort) albuterol sulfate 90 mcg/actuation 2 puff inhalation Q4-5H 02/11/21 aerosol inhaler (ProAir HFA) calcium carbonate 500 mg calcium 500 mg PO DAILY 02/11/21 (1,250 mg) tablet (Calcium 500) ibuprofen 200 mg capsule 200 mg PO PRN PRN 02/11/21 cholecalciferol (vitamin D3) 25 25 mcg PO DAILY 08/17/21 mcg (1,000 unit) capsule magnesium 250 mg tablet 500 mg PO DAILY 08/17/21 montelukast 10 mg tablet 10 mg PO DAILY 08/17/21 omega-3 fatty acids 1,000 mg 2,000 mg PO BID 08/17/21 capsule ferrous sulfate 325 mg (65 mg 325 mg PO BID 02/22/22 iron) tablet (iron) Current Visit Medications: Current Medications Generic Name Dose Route Start Last Admin Trade Name Freq PRN Reason Stop Dose Admin Ringer's Solution 1,000 mls @ 80 mls/hr 04/13/22 06:00 04/13/22 09:57 IV 04/13/22 23:59 80 mls/hr INFUSION PRAVEEN Administration IV Miscellaneous Supplies 1 each 04/13/22 06:00 Iv Access IV 04/13/22 23:59 DIRECTED PRAVEEN Ondansetron HCl 4 mg 04/12/22 16:31 Ondansetron 4 Mg/2 Ml Vial IVP Q4H PRN PRN Nausea / Vomiting Sodium Chloride 0 ml 04/13/22 06:00 Normal Saline Flush 10 Ml Syr IV 04/13/22 23:59 PRN PRN Sodium Chloride 0 ml 04/13/22 06:00 Normal Saline 10 Ml Vial IJ 04/13/22 23:59 DIRECTED PRN Sterile Water 0 ml 04/13/22 06:00 Water,Injection,Sterile 10 Ml Vial IJ 04/13/22 23:59 DIRECTED PRN PFSH Active Problems Active Problems: Problem Status Onset Code Occult blood positive stool R19.5 Iron deficiency anemia D50.9 Colon polyp ~08/21/21 K63.5 Medical History Medical History Asthma Basal cell carcinoma (BCC) of chest Bilateral primary osteoarthritis of hip Chondrodermatitis nodularis helicis Cortical cataract of right eye (06/05/18) Elevated blood pressure reading Epistaxis (05/27/14) GERD (gastroesophageal reflux disease) Maltracking of right patella Myalgia 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/14) Osteoarthritis of left knee Osteoarthritis of right knee Posterior subcapsular age-related cataract, right eye (~06/05/18) Seborrheic keratoses Skin lesion of face Trochanteric bursitis of both hips (12/20/16) Surgical History Surgical History Abdominal hysterectomy Cholecystectomy H/O cataract removal with insertion of prosthetic lens R H/O total hip arthroplasty B/L hips H/O total knee replacement R TKA History of colonoscopy with polypectomy (~08/21/21) History of total left knee replacement (12/31/20) Ligation of fallopian tube Tobacco Smoking/Tobacco Use Status: Never Alcohol Alcohol Intake: current Alcohol intake frequency: holidays/special occasions only Substance Use Substance use: Never Substance use type: does not use Vital Signs and Lab Results Vital Signs Most Recent Vital Signs in EMR: Most Recent Vital Signs Temp Pulse Resp BP Pulse Ox 36.5 C 55 L 17 145/87 H 97 04/13/22 09:36 04/13/22 09:36 04/13/22 09:36 04/13/22 09:36 04/13/22 09:36 Lab Results Blood Type / Crossmatch: No Data to Display Complete Blood Count: No Data to Display Complete Metabolic Panel: No Data to Display Liver Function Panel: No Data to Display Coagulation Panel: No Data to Display Cardiac Panel: No Data to Display Arterial Blood Gas: No Data to Display Venous Blood Gas: No Data to Display Pancreas Panel: No Data to Display Thyroid Panel: No Data to Display Infectious Disease: No Data to Display Blood Cultures: No Data to Display Toxicology Panel: No Data to Display Imaging and Studies Imaging and Studies Study information below may be from another EMR and interpreted by another provider. Please see original notes in EMR for more complete details. EKG Summary: Sinus bradycardia...rate< 60 Borderline prolonged WA interval...WA >222, V-rate 30- 49 08/24 Echocardiogram Summary: Conclusion Normal left ventricular wall thickness and chamber size. Estimated ejection fraction is 65%. There are no segmental wall motion abnormalities Normal right ventricular size and systolic function Both atria are normal in size There are no structural or hemodynamically significant valvular abnormalities Normal estima Anesthesia Assessment and Plan Anesthesia History Personal History: No History of Anesthesia Complications Family History: No Family History of Anesthesia Complications Exercise Tolerance Exercise Tolerance: Metabolic Equivalents>4 Pertinent Negatives Pertinent Negatives: No Symptoms of GERD and No Major Cardiovascular Symptoms or Complaints Cardiac & Pulmonary Exam Cardiac Exam: Normal S1/S2 Heart Sounds (Patient reports history of intermittent murmur) Pulmonary Exam: Clear Bilateral Breath Sounds Implantable Cardiac Device Does patient have a Pacemaker or an ICD?: No Airway Exam Known Difficult Airway: No Mallampati Class: 2 Mouth Opening: Normal (> 3cm) Thyromental Distance: Greater than 3 cm Neck Range of Motion: Full ROM Neck Circumference: Normal Teeth Condition: Normal Dentition ASA Classification ASA Score: ASA 2 Emergency Case?: No NPO Status NPO Status: NPO Clears >2 hours, Solids >8 hours Anesthesia Plan Resuscitation Status: Full Code Anesthesia Technique: General Anesthesia Airway Planned: Natural Airway Monitors Used: Standard Monitors
[2022-04-13 11:24] VITALS: BMI 30.2
[2022-04-13 11:46] VITALS: BP 110/80; PULSE 51; RESP 16; TEMP 36.5; O2SAT 97
--- NOTE | 2022-04-13 11:48 | PDOC.DSDIS_ITS ---
Discharge Plan Disposition Patient Disposition: HOME Discharge Details Attending Provider: Janie Mcdowell Primary Care Provider: Jemma Chavez Home Meds and New Rx's Prescriptions: No Action magnesium 250 mg tablet 500 mg PO DAILY omega-3 fatty acids 1,000 mg capsule 2,000 mg PO BID cholecalciferol (vitamin D3) 25 mcg (1,000 unit) capsule 25 mcg PO DAILY montelukast 10 mg tablet 10 mg PO DAILY multivitamin Tablet 1 tab PO DAILY omeprazole 20 mg capsule,delayed release(DR/EC) 20 mg PO Q OTHER DAY vitamin B complex Tablet 1 tab PO DAILY Label Comments: pt unsure of dose loratadine 10 mg Tablet 10 mg PO DAILY ibuprofen 200 mg Capsule 200 mg PO PRN PRN calcium carbonate [Calcium 500] 500 mg calcium (1,250 mg) Tablet 500 mg PO DAILY albuterol sulfate [ProAir HFA] 90 mcg/actuation Hfa Aerosol Inhaler 2 puff INHALATION Q4-5H ferrous sulfate [iron] 325 mg (65 mg iron) Tablet 325 mg PO BID Advair HFA 12 GM HFA aerosol inhaler 2 puff Inhalation BID PRN PRN triamcinolone acetonide [Nasacort] 55 mcg Aerosol,[place] 2 spray INTRANASAL DAILY PRN Discharge Instructions Additional Instructions: DSU Colonoscopy Post- Op Instructions Instructions for Everyone who is given Anesthesia: For your safety, please do the following for the next twenty-four (24) hours: *Do Not operate a motor vehicle (car, truck, motorcycle, etc.) *Do Not drink alcoholic beverages or use any recreational drugs for the first 24 hours or while taking pain medications. The medications in your body may have a reaction that can be dangerous. *Do Not make any important decisions or sign any important papers. Findings: diverticula no polyps otherwise normal Follow up: w/ PCP as needed for Hgb check 1. No lifting over 20 pounds or strenuous activity for the first 24 hours after your procedure. After 24 hours there are no restrictions on your activity but you may feel fatigued for a few days. 2. After you arrive home you may have a light meal and return to your normal diet as you can tolerate it without feeling sick to your stomach. 3. You may have a bloated, gaseous feeling in your belly (abdomen) after a colonoscopy. Passing gas and belching will help. Walking or lying down on your left side with your knees flexed may relieve the discomfort. Call the office at [phone] (Office) or [phone] (Hospital) right away if you notice any of the following: a.Vomiting of blood or ?coffee ground stools?. b.Rectal bleeding 1Tbsp, blood clots or continuous bleeding. c.Severe belly (abdominal) pain. d.A hard distended belly (abdomen) and an inability to pass gas. 4. Please don?t expect to have a normal BM (bowel movement) for 2-3 days after your procedure. 5. If there are questions regarding the findings of your procedure, please contact your doctor 6. If you are unable to contact your doctor with a problem, contact the hospital at [phone]. 7. Continue all your regular medications unless directed otherwise. I understand the above instructions and have no questions. Signature of Patient or Adult Escort Name of Responsible Adult Escort Signature of Nurse Date/Time Activity:: see above Diet:: see above Discharge Orders Discharge Orders: Discharge Order (Routine); Ordered 04/12/22 Ordered By: Janie Mcdowell
[2022-04-13 12:13] VITALS: BP 147/66; PULSE 45; RESP 18; TEMP 36.4; O2SAT 99
[2022-04-13 12:33] LABS: Abs Immature Grans 0.01 10^3/uL (0.0-0.06); Absolute Basophil Count 0.03 10^3/uL (0.0-0.2); Absolute Eosinophil Count 0.09 10^3/uL (0.0-0.7); Absolute Lymphocyte Count 1.42 10^3/uL (1.2-3.4); Absolute Monocyte Count 0.36 10^3/uL (0.1-0.8); Absolute Neutrophil Count 4.58 10^3/uL (1.2-6.7); Basophils % 0.5; Eosinophils % 1.4; HCT 43.6 % (36.0-46.0); HGB 13.7 g/dL (11.2-15.7); Immature Grans % 0.2; Lymphocytes % 21.9; MCH 28.4 pg (27.0-33.0); MCHC 31.4 % (32.0-36.0); MCV 90 fL (80-95); MPV 9.3 fL (8.0-11.0); Monocytes % 5.5; Neutrophils % 70.5; Platelet Count 280 10^3/uL (130-400); RBC 4.83 10^6/uL (3.93-5.22); RDW 18.8 % (11.7-14.6); RDW-SD 62.9 fL; WBC 6.49 10^3/uL (4.4-10.8)
[2022-04-13 13:04] LABS: Ferritin 15 ng/mL (8-252)
--- NOTE | 2022-04-13 13:31 | W.ANESPOSTOP ---
Postoperative Evaluation Date, Time and Location Date Performed: 04/13/22 Time Performed: 13:31 Patient Location: Day Surgery Unit Vital Signs Most Recent Imported Vital Signs: Most Recent Vital Signs Temp Pulse Resp BP Pulse Ox 36.4 C L 45 L 18 147/66 H 99 04/13/22 12:13 04/13/22 12:13 04/13/22 12:13 04/13/22 12:13 04/13/22 12:13 Pain Score Most Recent Pain Score: Most Recent Pain Score Pain Level 0 04/13/22 12:13 Assessment Mental Status: Awake (Alert & Oriented to Patient Baseline) Airway and Respiratory Function: Patent airway with normal (patient baseline) respiratory exam Cardiovascular Function: Hemodynamically Stable Hydration Status: Adequately Hydrated Nausea & Vomiting: No Nausea or Vomiting Pain: Pt. Denies Any Pain Peripheral Nerve Block: Patient did not receive a nerve block
== END 2022-04-13 12:57 | disposition home or self-care (01) ==
PROVIDERS: PCP Nurse Practitioner Family; Visit Provider Surgery
PROC: 0DJD8ZZ Inspection of Lower Intestinal Tract, Via Natural or Artificial Opening Endoscopic (ICD-10-PCS; CPT 45378; principal; 2022-04-13 10:45)
DX: R19.5 Other fecal abnormalities (principal); K57.30 Diverticulosis of large intestine without perforation or abscess without bleeding; Z86.010 Personal history of colon polyps; D50.9 Iron deficiency anemia, unspecified
CPT/HCPCS: 45378; 36415; 82728; 85025; J2704; J3490

== ENCOUNTER 2022-09-07 11:40 | Outpatient (REF) | payer MEDICARE, BC, SELFPAY ==
[2022-09-07 16:03] LABS: Abs Immature Grans 0.03 10^3/uL (0.0-0.06); Absolute Basophil Count 0.08 10^3/uL (0.0-0.2); Absolute Eosinophil Count 0.26 10^3/uL (0.0-0.7); Absolute Lymphocyte Count 1.72 10^3/uL (1.2-3.4); Absolute Monocyte Count 0.55 10^3/uL (0.1-0.8); Absolute Neutrophil Count 6.09 10^3/uL (1.2-6.7); Basophils % 0.9; HCT 40.1 % (36.0-46.0); HGB 12.8 g/dL (11.2-15.7); Immature Grans % 0.3; Lymphocytes % 19.7; MCH 31.2 pg (27.0-33.0); MCHC 31.9 % (32.0-36.0); MCV 98 fL (80-95); MPV 10.1 fL (8.0-11.0); Monocytes % 6.3; Neutrophils % 69.8; Platelet Count 373 10^3/uL (130-400); RDW 13.2 % (11.7-14.6); RDW-SD 46.9 fL; WBC 8.73 10^3/uL (4.4-10.8)
[2022-09-07 17:15] LABS: ALT 20 U/L (14-59); AST 18 U/L (15-37); Albumin 3.8 g/dL (3.4-5.0); Alkaline Phosphatase 74 U/L (46-116); Anion Gap 7.3 mmol/L (3-11); BUN 23 mg/dL (7-18); Bilirubin, Total 0.3 mg/dL (0.2-1.0); CO2 30.7 mmol/L (21.0-32.0); Calcium 9.9 mg/dL (8.5-10.1); Chloride 104 mmol/L (98-107); Estimated GFR 61.75 (mL/min/1.73m2); Ferritin 26 ng/mL (8-252); Glucose 112 mg/dL (74-106); Potassium 4.5 mmol/L (3.5-5.1); Sodium 142 mmol/L (136-145); Total Protein 7.1 g/dL (6.4-8.2)
[2022-09-07 17:28] LABS: Iron 76 ug/dL (50-170); Total Iron Binding Capacity 354 ug/dL (250-450); Transferrin Sat 21 % (15-50)
== END 2022-09-07 11:41 | disposition home or self-care (01) ==
LOC: NCHCN 11:40
PROVIDERS: PCP Nurse Practitioner Family; Visit Provider Nurse Practitioner Family
DX: D47.3 Essential (hemorrhagic) thrombocythemia (principal); R19.5 Other fecal abnormalities; D64.9 Anemia, unspecified
CPT/HCPCS: 80053; 82728; 83540; 83550; 85025

== ENCOUNTER 2022-12-06 16:08 | Outpatient (REF) | payer MEDICARE, BC, SELFPAY ==
[2022-12-06 20:52] LABS: HCT 39.7 % (36.0-46.0); HGB 13.2 g/dL (11.2-15.7); MCH 31.4 pg (27.0-33.0); MCHC 33.2 % (32.0-36.0); MCV 95 fL (80-95); MPV 10.4 fL (8.0-11.0); Platelet Count 374 10^3/uL (130-400); RDW 12.9 % (11.7-14.6); RDW-SD 44.5 fL; WBC 8.89 10^3/uL (4.4-10.8)
[2022-12-06 21:03] LABS: Iron 39 ug/dL (50-170); Total Iron Binding Capacity 373 ug/dL (250-450); Transferrin Sat 10 % (15-50)
== END 2022-12-06 16:09 | disposition home or self-care (01) ==
LOC: NCHCN 16:08
PROVIDERS: PCP Nurse Practitioner Family; Visit Provider Nurse Practitioner Family
DX: D64.9 Anemia, unspecified (principal)
CPT/HCPCS: 85027; 83540; 83550

== ENCOUNTER 2023-01-10 10:53 | Outpatient (CLI) | payer MEDICARE, BC, SELFPAY ==
--- NOTE | 2023-01-10 10:45 | DI.RAD_ITS ---
Exam(s) XR KNEE LT 2V AP,LAT EXAM: XR KNEE LT 2V AP,LAT INDICATION: annual f/u L TKA. COMPARISON: No exams were available for comparison TECHNIQUE: 2D digital imaging was performed. Two views. FINDINGS: There has been no change in the total knee prosthesis or appearance of the surrounding bone. DATA REPOSITORY: RADIATION DOSE DELIVERED:
== END 2023-01-10 10:54 | disposition home or self-care (01) ==
LOC: DIORS 10:53
PROVIDERS: PCP Nurse Practitioner Family; Referring Provider Nurse Practitioner Family; Visit Provider Student in an Organized Health Care Education/Training Program
DX: Z47.1 Aftercare following joint replacement surgery (principal); Z96.652 Presence of left artificial knee joint
CPT/HCPCS: 99213; 73560

== ENCOUNTER 2023-02-22 21:45 | Outpatient (REF) | payer MEDICARE, BC, SELFPAY | END 2023-02-22 21:46 | disposition home or self-care (01) | LOC: LBN 21:45 | PROVIDERS: PCP Nurse Practitioner Family; Visit Provider Nurse Practitioner Family | DX: N30.01 Acute cystitis with hematuria (principal) | CPT/HCPCS: 87077; 87086; 87186 ==

== ENCOUNTER 2023-03-29 08:46 | Emergency (ER) | payer MEDICARE, BC, SELFPAY ==
[2023-03-29 08:51] VITALS: BP 106/66; PULSE 60; RESP 20; TEMP 36.7; O2SAT 97
--- NOTE | 2023-03-29 09:00 | DI.CT_ITS ---
Exam(s) CT ABDOMEN PELVIS W EXAM: CT ABDOMEN PELVIS W CLINICAL HISTORY: nausea vomiting. TECHNIQUE: Imaging Protocol: Axial computed tomography images with coronal and sagittal reformatted images were created and reviewed CONTRAST MATERIAL: Intravenous: Omnipaque-350 100cc Oral: None COMPARISON: CT CT CHEST PE CTA from 02/22/2022 FINDINGS: VISUALIZED LUNG BASES: Mild benign-appearing increased markings in both lung bases posterior basal se gments. No associated pleural effusions.. Prominent hiatal hernia noted. This measures approximate ly 9 cm wide by 3.5 cm AP by 5 cm cephalocaudal. There is now some perigastric stranding and surroun ding fluid in the hiatal hernia region behind the heart. There is also a small pericardial effusion now evident. ABDOMEN: GI: In addition to the hiatal hernia there are also dilated jejunal loops in left side of the abdomen . These measure up to 3.2 cm. No surrounding fluid around these bowel loops. No obvious intussusce ption. No free air. No gas in the portal venous system. LIVER: There are no focal hepatic lesions evident. No dilated intrahepatic ducts. GALLBLADDER/BILIARY: The gallbladder is again noted to be surgically absent. CBD is not dilated. PANCREAS: No evidence of pancreatic mass nor dilatation of the pancreatic duct. SPLEEN: Spleen is not enlarged. No obvious intrasplenic lesions. Splenic and portal veins are paten t. ADRENALS: There are no significant adrenal masses. KIDNEYS:No cysts evident. No solid renal masses. No calculi nor hydronephrosis.. ABDOMINAL AORTA: Abdominal aorta is not enlarged. LYMPH NODES:There is no retroperitoneal nor paraaortic adenopathy. ABDOMINAL WALL: No evidence of significant anterior abdominal wall nor inguinal hernia. PELVIS: GI: No evidence of appendicitis.No evidence of sigmoid diverticulitis. LYMPH NODES: There is no intrapelvic nor inguinal adenopathy. REPRODUCTIVE: Uterus atrophic or surgically absent. Area partially obscured by bilateral hip prosthe ses. No obvious pelvic masses. URINARY BLADDER: Partially obscured by beam hardening artifact from bilateral hip prostheses. OSSEOUS: No fractures and no significant osseous lesions. Bilateral hip prostheses. Scoliosis convex right. IMPRESSION: 1. Prominent hiatal hernia with measurements as above. There appears to be some fluid in the fat randi rounding the herniated gastric fundus. 2. There also a few dilated small bowel loops in the central-left side of the abdomen measuring up to 3.2 cm. May imply developing small-bowel obstruction in this patient who has had prior cholecystect laisha and probable hysterectomy. 3. No evidence of free air, ascites, nor abscess Discussed by phone with ER physician RADIATION DOSE DELIVERED: Total DLP DATA REPOSITORY: All CT scans at this facility are submitted to the National Radiology Data Registry (NRDR) Dose Index Registry (DIR) with the [employer] (ACR). RADIATION OPTIMIZATION: All CT scans at this facility use at least one of these dose optimization te chniques: automated exposure control; mA and/or kV adjustment per patient size (includes targeted exa ms where dose is matched to clinical indication); or iterative reconstruction.
--- NOTE | 2023-03-29 09:20 | W.ED.GENAD ---
Discharge Plan Disposition Patient Disposition: Home Condition: Improving Discharge Details Chief Complaint: GenMedical Clinical Impression: Nausea Primary Care Provider: Jemma Chavez ED Provider: Oscar Hou Home Meds and New Rx's Prescriptions: No Action magnesium 250 mg tablet 500 mg PO DAILY omega-3 fatty acids 1,000 mg capsule 2,000 mg PO BID cholecalciferol (vitamin D3) 25 mcg (1,000 unit) capsule 25 mcg PO DAILY montelukast 10 mg tablet 10 mg PO DAILY multivitamin Tablet 1 tab PO DAILY omeprazole 20 mg capsule,delayed release(DR/EC) 20 mg PO Q OTHER DAY vitamin B complex Tablet 1 tab PO DAILY Patient Comments: pt unsure of dose loratadine 10 mg Tablet 10 mg PO DAILY ibuprofen 200 mg Capsule 200 mg PO PRN PRN calcium carbonate [Calcium 500] 500 mg calcium (1,250 mg) Tablet 500 mg PO DAILY albuterol sulfate [ProAir HFA] 90 mcg/actuation Hfa Aerosol Inhaler 2 puff INHALATION Q4-5H ferrous sulfate [iron] 325 mg (65 mg iron) Tablet 325 mg PO BID fluticasone propion-salmeterol [Advair HFA] 12 GM HFA aerosol inhaler 2 puff Inhalation BID PRN PRN triamcinolone acetonide [Nasacort] 55 mcg Aerosol,[place] 2 spray INTRANASAL DAILY PRN Discharge Instructions Instructions: Acute Nausea and Vomiting (ED) Additional Instructions: Please follow-up with your primary care physician. Return to the emergency department for any worsening symptoms Medical Decision Making 67-year-old female presents with general body aches sore throat cough nausea vomiting. Abdomen soft nontender nondistended patient nontoxic resting comfortably, slightly erythematous oropharynx without exudate. Consider likely viral syndrome must consider COVID versus flu versus strep versus intra-abdominal infection such as colitis or enteritis. Patient has history of cholecystectomy. Was also consider UTI. Screening labs imaging analgesia fluids antiemetics close reassessment 15: 21 patient resting comfortably no acute distress feeling better after fluids and rest. Evidence of hiatal hernia and some dilated loops of bowel however patient endorses passing stool this morning and passing flatus here in department, tolerated p.o. without issue no nausea or vomiting. Nonperitoneal. Lower suspicion for acute bowel obstruction. Consider ileus in the setting of viral illness. Patient feeling well enough to go home will return for any worsening symptoms HPI General Date/Time Provider Initiated Documentation: 03/29/23 09:02. HPI Narrative: 67 year-old female presents with general body fatigue, sore throat cough nausea vomiting no diarrhea. Related Data Home Medications Medication Instructions Recorded Confirmed fluticasone propionate 115 2 puff inhalation BID PRN PRN 09/24/16 01/10/23 mcg-salmeterol 21 mcg/actuation HFA inhaler (Advair HFA) loratadine 10 mg tablet 10 mg PO DAILY 08/06/20 01/10/23 omeprazole 20 mg capsule,delayed 20 mg PO Q OTHER DAY 08/06/20 01/10/23 release vitamin B complex 1 tab PO DAILY 08/06/20 01/10/23 multivitamin 1 tab PO DAILY 08/20/20 01/10/23 triamcinolone acetonide 55 mcg 2 spray intranasal DAILY PRN 12/30/20 01/10/23 nasal spray aerosol (Nasacort) albuterol sulfate 90 mcg/actuation 2 puff inhalation Q4-5H 02/11/21 01/10/23 aerosol inhaler (ProAir HFA) calcium carbonate 500 mg calcium 500 mg PO DAILY 02/11/21 01/10/23 (1,250 mg) tablet (Calcium 500) ibuprofen 200 mg capsule 200 mg PO PRN PRN 02/11/21 01/10/23 cholecalciferol (vitamin D3) 25 25 mcg PO DAILY 08/17/21 01/10/23 mcg (1,000 unit) capsule magnesium 250 mg tablet 500 mg PO DAILY 08/17/21 01/10/23 montelukast 10 mg tablet 10 mg PO DAILY 08/17/21 01/10/23 omega-3 fatty acids 1,000 mg 2,000 mg PO BID 08/17/21 01/10/23 capsule ferrous sulfate 325 mg (65 mg 325 mg PO BID 02/22/22 01/10/23 iron) tablet (iron) Allergies Allergy/AdvReac Type Severity Reaction Status Date / Time Penicillins Allergy Intermediate Skin Rash Verified 03/29/23 08:55 codeine AdvReac Intermediate Nausea Verified 03/29/23 08:55 General Stated Complaint: GenMedical MAYITO: 3 Review of Systems Narrative: Review of Systems Constitutional: Fatigue Eyes: negative ENT: Sore throat Cardiovascular: negative Respiratory: Cough Gastrointestinal: Nausea vomiting : negative Musculoskeletal: negative Skin: negative Neurologic: negative Psych: negative PFSH All Active Problems (Updated 03/29/23 @ 15:22 by Oscar Hou MD) Nausea (Acute) Occult blood positive stool (Acute) Iron deficiency anemia (Acute) Colon polyp (Acute ~08/21/21) Medical History Asthma Basal cell carcinoma (BCC) of chest Bilateral primary osteoarthritis of hip Chondrodermatitis nodularis helicis Cortical cataract of right eye (06/05/18) Elevated blood pressure reading Epistaxis (05/27/14) GERD (gastroesophageal reflux disease) Maltracking of right patella Myalgia 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/14) Osteoarthritis of left knee Osteoarthritis of right knee Posterior subcapsular age-related cataract, right eye (~06/05/18) Seborrheic keratoses Skin lesion of face Trochanteric bursitis of both hips (12/20/16) Surgical History Abdominal hysterectomy Cholecystectomy H/O cataract removal with insertion of prosthetic lens R H/O total hip arthroplasty B/L hips H/O total knee replacement R TKA History of colonoscopy with polypectomy (~08/21/21) History of total left knee replacement (12/31/20) Ligation of fallopian tube Social History Smoking/Tobacco Use Status: Never Smoking risk assessment performed?: Yes Alcohol Intake: current Alcohol Intake frequency: holidays/special occasions only Drug use: Never Substance use type: does not use Housing: house Current gender identity: female Do you feel safe at home: Yes Do you feel safe in your relationship?: Yes Exam Narrative Exam Narrative: Physical Examination General: alert, awake, cooperative, resting comfortably, no acute distress HEENT: normocephalic, atraumatic; PERRL, EOM intact, conjunctiva normal; no nasal discharge; moist mucous membranes, slightly erythematous oropharynx without exudate, tolerating secretions Neck: supple, trachea midline; full ROM Chest: normal to inspection Respiratory: normal respiratory effort, speaking in full sentences, clear to auscultation, no wheezing, rales or rhonchi Cardiac: regular rate, regular rhythm, S1S2 intact, no murmurs rubs or gallops GI: abdomen soft, non-tender, non-distended; no palpable mass or hepatosplenomegaly Skin: no lesions, rashes or trauma appreciated Neuro: AAOx3, normal speech, moving all extremities Psych: Appropriate mood and affect Course Vital Signs Vital signs: Vital Signs Temperature 36.7 C 03/29/23 08:51 Pulse 60 03/29/23 08:51 Respiratory Rate 20 03/29/23 08:51 Blood Pressure 106/66 03/29/23 08:51 Pulse Oximetry 97 03/29/23 08:51 Temperature 36.7 C 03/29/23 08:51 Temperature Source Oral 03/29/23 08:51 Pulse 60 03/29/23 08:51 Respiratory Rate 20 03/29/23 08:51 Blood Pressure 106/66 03/29/23 08:51 Blood Pressure Position Sitting 03/29/23 08:51 Pulse Oximetry 97 03/29/23 08:51 Oxygen Delivery Method Room Air 03/29/23 08:51 Oxygen Flow Rate 0 03/29/23 08:51 Pain Level 6 03/29/23 08:51
[2023-03-29] MEDS: Normal Saline 1,000 ML 1000 ML IV (09:42)
[2023-03-29] MEDS: Ondansetron 4 MG/2 ML VIAL IVP (09:42)
[2023-03-29] MEDS: ACETAMINOPHEN 1,000 MG/100 ML BTL 400 MG IVPB (09:43)
[2023-03-29 09:57] LABS: HCT 38.4 % (36.0-46.0); HGB 12.8 g/dL (11.2-15.7); MCH 30.3 pg (27.0-33.0); MCHC 33.3 % (32.0-36.0); MCV 91 fL (80-95); MPV 11.4 fL (8.0-11.0); Platelet Count 54 10^3/uL (130-400); RBC 4.22 10^6/uL (3.93-5.22); RDW 13.2 % (11.7-14.6); RDW-SD 44.5 fL; WBC 3.41 10^3/uL (4.4-10.8)
[2023-03-29 09:59] LABS: COVID-19 PCR Negative (Negative); Influenza A PCR Negative (Negative); Influenza B PCR Negative (Negative); RSV PCR Negative (Negative)
[2023-03-29 10:00] LABS: Source Nasopharynx
[2023-03-29 10:26] LABS: Troponin I < 50 ng/L (<or=60)
[2023-03-29 10:29] LABS: Absolute Lymphocyte Count 0.24 10^3/uL (1.2-3.4); Absolute Monocyte Count 0.03 10^3/uL (0.1-0.8); Absolute Neutrophil Count 3.14 10^3/uL (1.2-6.7); Bands % 6
[2023-03-29 10:30] LABS: Diff Comment Manual Differential; RBC Morphology Normal
[2023-03-29 10:34] LABS: ALT 86 U/L (14-59); AST 114 U/L (15-37); Albumin 2.8 g/dL (3.4-5.0); Alkaline Phosphatase 259 U/L (46-116); Anion Gap 6.3 mmol/L (3-11); BUN 21 mg/dL (7-18); Bilirubin, Total 1.8 mg/dL (0.2-1.0); CO2 31.7 mmol/L (21.0-32.0); Chloride 104 mmol/L (98-107); Estimated GFR 61.36 (mL/min/1.73m2); Glucose 104 mg/dL (74-106); Lipase 39 U/L (16-77); Potassium 3.3 mmol/L (3.5-5.1); Sodium 142 mmol/L (136-145); TSH (W/Ref FT4) 2.55 uIU/mL (0.36-3.74); Total Protein 6.3 g/dL (6.4-8.2)
[2023-03-29 11:24] LABS: Bilirubin Small (Negative); Blood Negative (Negative); Clarity Clear (Clear); Glucose Negative (Negative); Ketones Negative (Negative); Leukocyte Esterase Negative (Negative); Nitrite Negative (Negative); Specific Gravity 1.015 (1.005-1.025); pH 6.5 (5-8)
[2023-03-29 11:35] LABS: Bacteria Negative HPF (Negative); C & S Indicated? No; Casts 0-2 Hyaline LPF (Negative); Crystals Negative HPF (Negative); Epithelial Cells Rare HPF (Negative); Mucus Trace (Negative); RBC Negative HPF (0-2); WBC Negative HPF (0-5)
[2023-03-29 11:52] VITALS: RESP 16
--- NOTE | 2023-03-29 12:20 | DI.RAD_ITS ---
Exam(s) XR CHEST 2V PA LATERAL EXAM: XR CHEST 2V PA LATERAL CLINICAL HISTORY: cough. TECHNIQUE: 2D digital imaging was performed. COMPARISON: No exams were available for comparison FINDINGS: 2 views: Heart size normal. Large retrocardiac hiatal hernia again noted. No upper mediastinal findings. Tenting of the right hemidiaphragm again noted. No new infiltrates nor pleural effusions. IMPRESSION: No acute pulmonary findings.Prominent hiatal hernia again noted. Slightly further increased in size. DATA REPOSITORY: RADIATION DOSE DELIVERED:
[2023-03-29] MEDS: Normal Saline - Diluent 50 ML VIAL IV (12:33)
[2023-03-29] MEDS: Omnipaque 350 MG/ML 500 ML BTL-Imaging package 100 ML IJ (12:35)
== END 2023-03-29 15:52 | disposition home or self-care (01) ==
PROVIDERS: Emergency Provider Emergency Medicine; PCP Nurse Practitioner Family
DX: R11.2 Nausea with vomiting, unspecified (principal)
CPT/HCPCS: 80053; 83690; 87637; 87880; 96361; 96365; 96375; 99285; 71046; 74177; 81003; 81015; 83735; 84443; 84484; 85025; 87081; 99284; J0131; J2405

== ENCOUNTER 2023-03-30 20:19 | Inpatient (IN) | payer MEDICARE, BC, SELFPAY ==
--- NOTE | 2023-03-30 20:15 | RT.EKG_ITS ---
APPROVED REPORT Exam: Resting ECG Reason for Exam: difficulty breathing Patient Location: E HR:59 bpm ECG Measurements Heart Rate 59 AXIS [place] 188 P 30 QRSd 79 QRS -15 QT 429 T 51 QTc 426 Conclusion Sinus bradycardia...rate< [address] intervals. No ST segment or T wave abnormalities to suggest occlusive [place]
[2023-03-30 20:29] VITALS: BP 120/81; PULSE 60; RESP 22; TEMP 36.4; O2SAT 92
--- NOTE | 2023-03-30 20:30 | DI.RAD_ITS ---
Exam(s) XR CHEST 2V PA LATERAL EXAM: XR CHEST 2V PA LATERAL CLINICAL HISTORY: short of breath. TECHNIQUE: 2D digital imaging was performed. COMPARISON: CR XR CHEST 2V PA LATERAL from 11/12/2021 CR XR CHEST 2V PA LATERAL from 03/29/[address] ABDOMEN PELVIS W from 03/30/2023 Chest x-ray 03/29/2023. FINDINGS: 2 views: Heart size is normal. The upper mediastinum is not widened. Moderate size hiatal hernia again noted . Tenting of the right hemidiaphragm is unchanged. Increased interstitial markings again noted in both lung raymond, unchanged from yesterday. There are no Jessica B lines. There are no pleural effusions IMPRESSION: No significant change compared to chest x-ray of 03/29/2023. No improvement. DATA REPOSITORY: RADIATION DOSE DELIVERED:
--- NOTE | 2023-03-30 20:30 | DI.CT_ITS ---
Exam(s) CT ABDOMEN PELVIS W EXAM: CT ABDOMEN PELVIS W CLINICAL HISTORY: bloating, abdominal pain, epigstric pressure. TECHNIQUE: Imaging Protocol: Axial computed tomography images with coronal and sagittal reformatted images were created and reviewed CONTRAST MATERIAL: Intravenous: Omnipaque-350 100cc Oral: None COMPARISON: CT CT ABDOMEN PELVIS W from 02/11/[address] ABDOMEN PELVIS W from 03/29/2023 FINDINGS: VISUALIZED LUNG BASES: Mild infiltrate in the lung bases posterior basal segments bilaterally. No as sociated pleural effusions. ABDOMEN: Prominent hiatal hernia again noted. This measures 7.5 cm wide by 4 cm AP by 4 cm cephalocaudal. . LIVER: There are no focal hepatic lesions evident. No dilated intrahepatic ducts. GALLBLADDER/BILIARY: Gallbladder is again noted be surgically absent. CBD is not dilated. PANCREAS: No evidence of pancreatic mass nor dilatation of the pancreatic duct. SPLEEN: Spleen is not enlarged. No obvious intrasplenic lesions. Splenic and portal veins are paten t. ADRENALS: There are no significant adrenal masses. KIDNEYS:No cysts evident. No solid renal masses. No calculi nor hydronephrosis.. ABDOMINAL AORTA: Abdominal aorta is not enlarged. LYMPH NODES:There is no retroperitoneal nor paraaortic adenopathy. ABDOMINAL WALL: No evidence of significant anterior abdominal wall nor inguinal hernia. GI: There are few minimally prominent centrally located small bowel loops, more so than previous. Al so small amount of free fluid in the dependent aspect of the pelvis. PELVIS: GI: No evidence of appendicitis.No evidence of sigmoid diverticulitis. LYMPH NODES: There is no intrapelvic nor inguinal adenopathy. REPRODUCTIVE: Uterus is surgically absent. No obvious adnexal masses. There is small amount of free fluid in the dependent aspect of the pelvis. URINARY BLADDER: Partially obscured by beam hardening artifact from bilateral hip prostheses. No dis tension. OSSEOUS: No fractures and no significant osseous lesions. Scoliosis again noted. IMPRESSION: 1. There are few slightly prominent small bowel loops in the central abdomen, possibly element of ent eritis. However, there is also a small amount of ascitic fluid in the dependent aspect of the pelvis . Cannot exclude early small bowel obstruction. Appropriate follow-up recommended. 2. Prominent hiatal hernia again noted. 3. Previous cholecystectomy and hysterectomy. Bilateral hip prostheses. 4. Lung base findings as above. RADIATION DOSE DELIVERED: 752.16mGy.cm Total DLP DATA REPOSITORY: All CT scans at this facility are submitted to the National Radiology Data Registry (NRDR) Dose Index Registry (DIR) with the [employer] (A[employer]). RADIATION OPTIMIZATION: All CT scans at this facility use at least one of these dose optimization te chniques: automated exposure control; mA and/or kV adjustment per patient size (includes targeted exa ms where dose is matched to clinical indication); or iterative reconstruction.
[2023-03-30 20:58] LABS: Abs Immature Grans 0.02 10^3/uL (0.0-0.06); HCT 32.1 % (36.0-46.0); MCH 30.8 pg (27.0-33.0); MCHC 34.3 % (32.0-36.0); MCV 90 fL (80-95); MPV 12.3 fL (8.0-11.0); RBC 3.57 10^6/uL (3.93-5.22); RDW 13.4 % (11.7-14.6); RDW-SD 44.4 fL; WBC 4.98 10^3/uL (4.4-10.8)
[2023-03-30 21:14] LABS: Absolute Lymphocyte Count 1.05 10^3/uL (1.2-3.4); Absolute Monocyte Count 0.35 10^3/uL (0.1-0.8); Absolute Neutrophil Count 3.59 10^3/uL (1.2-6.7); Atypical Lymphocytes % 1; Diff Comment Manual Differential; Platelet Count 39 10^3/uL (130-400); RBC Morphology Normal
[2023-03-30 21:18] LABS: ALT 80 U/L (14-59); AST 108 U/L (15-37); Albumin 2.5 g/dL (3.4-5.0); Alkaline Phosphatase 322 U/L (46-116); Anion Gap 8.2 mmol/L (3-11); BUN 19 mg/dL (7-18); Bilirubin, Total 1.7 mg/dL (0.2-1.0); CO2 27.8 mmol/L (21.0-32.0); Calcium 8.3 mg/dL (8.5-10.1); Chloride 102 mmol/L (98-107); Estimated GFR 61.36 (mL/min/1.73m2); Glucose 100 mg/dL (74-106); Magnesium 1.8 mg/dL (1.8-2.4); NT-proBNP 1787 pg/mL (<300); Potassium 3.4 mmol/L (3.5-5.1); Sodium 138 mmol/L (136-145); Total Protein 5.8 g/dL (6.4-8.2)
[2023-03-30 21:20] LABS: Troponin I 113 ng/L (<or=60)
[2023-03-30] MEDS: Normal Saline - Diluent 50 ML VIAL IJ (21:34)
[2023-03-30] MEDS: Omnipaque 350 MG/ML 100 ML BTL IJ (21:34)
[2023-03-30 21:46] LABS: D-Dimer > 7500 ng/mlFEU (<500)
--- NOTE | 2023-03-30 22:00 | DI.CT_ITS ---
Exam(s) CT CHEST PE CTA EXAM: CT CHEST PE CTA CLINICAL HISTORY: short of breath, hypoxia, elevated dimer. TECHNIQUE: Imaging Protocol: CT angiography of the chest was performed using pulmonary embolus grisel col. Multi planar reconstructions were performed. CONTRAST MATERIAL: Intravenous: Omnipaque 350 Contrast volume: 100 cc COMPARISON: CT CT ABDOMEN PELVIS W from 03/30/2023 FINDINGS: CHEST: PULMONARY ARTERIES: There are no intraluminal filling defects to suggest acute pulmonary emboli. LUNGS: There increased interstitial markings in both lung raymond. There are no pleural effusions. A lso lung densities consistent with air trapping. No air bronchograms. MEDIASTINUM: There is no hilar nor mediastinal adenopathy. Large hiatal hernia noted. CARDIAC: Mild cardiomegaly. No pericardial effusion.Caliber of the thoracic aorta is within normal l imits. There is no significant shift of the interventricular septum. PARTIALLY VISUALIZED UPPERMOST ABDOMEN: Hepatic steatosis. No obvious adrenal masses. OSSEOUS: No significant osseous lesions.No fractures.. IMPRESSION: 1. No evidence of acute pulmonary emboli. No evidence of pulmonary infarction.No pleural effusions. 2. Diffuse bilateral increased interstitial markings. May be associated with element of pulmonary ed titi. Air trapping also noted in both lung raymond. 3. Large hiatal hernia noted. First read by [facility]. RADIATION DOSE DELIVERED: 393.1mGy.cm Total DLP DATA REPOSITORY: All CT scans at this facility are submitted to the National Radiology Data Registry (NRDR) Dose Index Registry (DIR) with the [employer] ([employer]CR). RADIATION OPTIMIZATION: All CT scans at this facility use at least one of these dose optimization te chniques: automated exposure control; mA and/or kV adjustment per patient size (includes targeted exa ms where dose is matched to clinical indication); or iterative reconstruction.
--- NOTE | 2023-03-30 22:12 | DI.VRAD_ITS ---
PROCEDURE INFORMATION: Exam: XR Chest Exam date and time: 03/30/2023 9:36 PM Age: 67 years old Clinical indication: Shortness of breath TECHNIQUE: Imaging protocol: Radiologic exam of the chest. Views: 2 views. COMPARISON: CR XR CHEST 2V PA LATERAL 03/29/2023 12:15 PM FINDINGS: Lungs: There are diffuse interstitial infiltrates present. This may represent cardiogenic versus noncardiogenic edema. An acute inflammatory process and/or infectious process/pneumonia are not excluded. Pleural spaces: There is no evidence of pneumothorax. There are no pleural effusions present. Heart/Mediastinum: There is a moderate size hiatal hernia present. There is moderate cardiomegaly. Vasculature: The aorta is ectatic and torturous. Bones/joints: There is an exaggerated kyphosis with anterior compressions of the midthoracic spine. The skeletal structures and soft tissues show no evidence of fracture or other acute processes. Soft tissues: The soft tissues of the extrathoracic region are unremarkable. IMPRESSION: There are diffuse interstitial infiltrates present. This may represent cardiogenic versus noncardiogenic edema. An acute inflammatory process and/or infectious process/pneumonia are not excluded. Dictated and Authenticated by: Trung Hensley MD. Ordering:REENA Santoro MD
--- NOTE | 2023-03-30 22:22 | DI.VRAD_ITS ---
PROCEDURE INFORMATION: Exam: CT Abdomen And Pelvis With Contrast Exam date and time: 03/30/2023 9:31 PM Age: 67 years old Clinical indication: Other: Bloating, abdominal pain, epigstric pressure TECHNIQUE: Imaging protocol: Computed tomography of the abdomen and pelvis with contrast. Contrast material: 350; Contrast volume: 100 ml; Contrast route: INTRAVENOUS (IV); COMPARISON: CT ABDOMEN PELVIS W 03/29/2023 12:23 PM FINDINGS: Lungs: There is minimal bibasilar atelectasis. Scattered patchy ground-glass opacities within the lungs. These findings are nonspecific and may represent hypoventilatory change,edema, hemorrhage, or an infectious/inflammatory process (acute or chronic). Mediastinal space: Fluid is seen within the esophagus consistent with gastroesophageal reflux. Diaphragm: A moderate hiatal hernia is present. Liver: There is a diffuse decrease in hepatic parenchymal density, consistent with mild fatty infiltration. There are no focal liver lesions present. There is no evidence of intrahepatic or extrahepatic biliary ductal dilation. Gallbladder and bile ducts: There has been a cholecystectomy. Pancreas: There is mild pancreatic atrophy and fatty replacement. Spleen: The spleen is normal. Adrenal glands: The adrenal glands are normal without evidence of mass or enlargement. Kidneys and ureters: The kidneys are normal no evidence of nephrolithiasis or hydronephrosis. The ureters are normal caliber and follow a normal caliber and course. Stomach and bowel: There is no evidence of intestinal obstruction. There are fluid-filled loops of small bowel with air-fluid levels. No significant bowel wall thickening or inflammatory changes. No evidence of obstruction. Consider early enteritis. There is moderate increased colonic fecal content. The colon is mildly distended. These findings suggest a moderate degree of constipation. Clinical correlation recommended. Appendix: A normal appendix is identified. There is no evidence of distention or periappendiceal inflammation to suggest appendicitis. Intraperitoneal space: There is no free intraperitoneal air. There is no evidence of free intraperitoneal or pelvic fluid. Vasculature: The abdominal aorta and iliac arteries are tortuous which may represent long-standing hypertension.The aorta demonstrates mild atherosclerotic calcification. The arterial peripheral vasculature demonstrates diffuse mild atherosclerotic calcification. The inferior venacava appears normal.The portal, mesenteric and splenic veins are patent. Lymph nodes: There is no evidence of lymphadenopathy. Urinary bladder: The bladder is normal. Reproductive: There has been a hysterectomy. No adnexal cysts or masses are identified. Bones/joints: There is a moderate to severe convex dextroscoliosis of the lumbar spine. There are bilateral total hip replacements present. Beam hardening artifact obscures bony and soft-tissue detail within the pelvis. The thoracolumbar spine demonstrates moderate degenerative changes at multiple levels. The lumbar spine demonstrates moderate to severe degenerative changes. Soft tissues: There is a fat-containing umbilical hernia. IMPRESSION: 1. Scattered patchy ground-glass opacities within the lungs. These findings are nonspecific and may represent hypoventilatory change,edema, hemorrhage, or an infectious/inflammatory process (acute or chronic). Possible 8 mm nodule present on image 12 series 4 right lower lobe of the lung.For patients at low risk (minimal or absent history of smoking and of other known risk factors), recommend CT Chest at 6-12 months, then consider CT Chest at 18-24 months. For patients at high risk (history of smoking or of other known risk factors), recommend CT Chest at 6-12 months, then CT Chest at 18-24 months. (Reference: Norbert). 2. There are fluid-filled loops of small bowel with air-fluid levels. No significant bowel wall thickening or inflammatory changes. No evidence of obstruction. Consider early enteritis. 3. Constipation REFERENCES: Norbert H, et al. Guidelines for Management of Incidental Pulmonary Nodules Detected on CT Images: From the Fleischner Society 2017. Radiology. 2017;284(1):228-243. Dictated and Authenticated by: Trung Hensley MD. Ordering:REENA Santoro MD
--- NOTE | 2023-03-30 22:57 | DI.VRAD_ITS ---
PROCEDURE INFORMATION: Exam: CTA Chest With Contrast Exam date and time: 03/30/2023 10:30 PM Age: 67 years old Clinical indication: Shortness of breath and other: Short of breath, hypoxia, elevated dimer TECHNIQUE: Imaging protocol: Computed tomographic angiography of the chest with contrast. Exam focused on the arteries. 3D rendering (Not supervised by radiologist): MIP and/or 3D reconstructed images were created by the technologist. Radiation optimization: All CT scans at this facility use at least one of these dose optimization techniques: automated exposure control; mA and/or kV adjustment per patient size (includes targeted exams where dose is matched to clinical indication); or iterative reconstruction. Contrast material: OMNI 350; Contrast volume: 100 ml; Contrast route: INTRAVENOUS (IV); COMPARISON: CT CHEST PE CTA 02/22/2022 12:13 PM FINDINGS: Pulmonary arteries: New the pulmonary artery is in the upper limits of normal in size. There is no evidence of filling defects within the pulmonary arterial circulation to suggest pulmonary embolism. Aorta: The aorta is normal. Lungs: There are diffuse interstitial infiltrates present. This may represent cardiogenic versus noncardiogenic edema. An acute inflammatory process and/or infectious process/pneumonia are not excluded. Scattered patchy ground-glass opacities within the lungs. These findings are nonspecific and may represent hypoventilatory change,edema, hemorrhage, or an infectious/inflammatory process (acute or chronic). Focal atelectasis consolidation right lower lobe of the lung. Multiple pulmonary nodules present measuring 4-6 mm in diameter.For patients at low risk (minimal or absent history of smoking and of other known risk factors), no routine follow-up is indicated. For patients at high risk (history of smoking or of other known risk factors), consider optional CT Chest at 12 months. (Reference: Norbert). Pleural spaces: There is no evidence of pneumothorax. There are no pleural effusions present. Heart: Heart is mildly enlarged. No pericardial effusion. The right ventricular to left ventricular ratio is normal measuring 0.9. Lymph nodes: Unremarkable. No enlarged lymph nodes. Diaphragm: A moderate to large hiatal hernia is present. Bones/joints: Unremarkable. No acute fracture. Soft tissues: Nodule present within the right breast consider mammography. IMPRESSION: 1. There are diffuse interstitial infiltrates present. This may represent cardiogenic versus noncardiogenic edema. An acute inflammatory process and/or infectious process/pneumonia are not excluded. 2. Scattered patchy ground-glass opacities within the lungs. These findings are nonspecific and may represent hypoventilatory change,edema, hemorrhage, or an infectious/inflammatory process (acute or chronic). There is heterogeneous attenuation of the pulmonary parenchyma, consistent with air trapping from underlying small airways disease. 3. There is no evidence of filling defects within the pulmonary arterial circulation to suggest pulmonary embolism. 4. A moderate to large hiatal hernia is present. 5. Nodule present within the right breast consider mammography. 6. Multiple pulmonary nodules present measuring 4-6 mm in diameter.For patients at low risk (minimal or absent history of smoking and of other known risk factors), no routine follow-up is indicated. For patients at high risk (history of smoking or of other known risk factors), consider optional CT Chest at 12 months. (Reference: Norbert). REFERENCES: Norbert Han, et al. Guidelines for Management of Incidental Pulmonary Nodules Detected on CT Images: From the Fleischner Society 2017. Radiology. 2017;284(1):228-243. Dictated and Authenticated by: Trung Hensley MD. Ordering:REENA Santoro MD
--- NOTE | 2023-03-30 23:02 | ED.GENADUL_ITS ---
Discharge Plan Discharge Details Chief Complaint: Chest Pain Primary Care Provider: Jemma Chavez ED Provider: Maude Shaffer Home Meds and New Rx's Prescriptions: No Action magnesium 250 mg tablet 500 mg PO DAILY omega-3 fatty acids 1,000 mg capsule 2,000 mg PO BID cholecalciferol (vitamin D3) 25 mcg (1,000 unit) capsule 25 mcg PO DAILY montelukast 10 mg tablet 10 mg PO DAILY multivitamin Tablet 1 tab PO DAILY omeprazole 20 mg capsule,delayed release(DR/EC) 20 mg PO Q OTHER DAY vitamin B complex Tablet 1 tab PO DAILY Patient Comments: pt unsure of dose loratadine 10 mg Tablet 10 mg PO DAILY ibuprofen 200 mg Capsule 200 mg PO PRN PRN calcium carbonate [Calcium 500] 500 mg calcium (1,250 mg) Tablet 500 mg PO DAILY albuterol sulfate [ProAir HFA] 90 mcg/actuation Hfa Aerosol Inhaler 2 puff INHALATION Q4-5H ferrous sulfate [iron] 325 mg (65 mg iron) Tablet 325 mg PO BID fluticasone propion-salmeterol [Advair HFA] 12 GM HFA aerosol inhaler 2 puff Inhalation BID PRN PRN triamcinolone acetonide [Nasacort] 55 mcg Aerosol,[place] 2 spray INTRANASAL DAILY PRN Medical Decision Making 67yo female presenting for epigastric/substernal pressure and mild pain as well as shortness of breath. Hypoxic on arrival with sat of 86-88% on room air, improved to 94+% on 2L NC. Vital signs otherwise reassuring. Lungs CTAB on exam, abdomen slightly distended. ED visit from yesterday reviewed including physician note, labs, imaging. In brief, presented for general body aches, sore throat, N/V; CT showed hiatial hernia and some dilated loops of bowel with patient not clinically obstructed. Symptoms improved, tolerated PO, and discharged home. Today with chest pain and shortness of breath which patient attributes to abdominal bloating, however is concerning for cardiac etiology/AL/heart failure/pulmonary embolism. EKG sinus bradycardia with rate of 59, appropriate intervals, no concerning ST segment or T wave abnormalities to suggest occlusive AL. Labs ordered and reviewed; CBC with mild anemia Hg 11.0, CMP with mild LFT elevation (bili 1.7, AST/ALT/ALP also slightly elevated) with no significant changes from labs yesterday. Initial troponin 113 (normal yesterday) and BNP elevated at ~1700. Not overtly volume overloaded on exam. D-dimer order given new hypoxia; elevated and so CT PE ordered and negative for PE. CT abd/pelvis negative for obstruction, worsening hernia, or other acute surgical process. On reassessment patient reports chest pain/pressure resolved and breathing feels comfortable on 2L NC. Unclear etiology of symptoms; will replace potassium and try gentle diuresis with 40mg IV lasix for possible pu lmonary edema. Delta troponin pending. Accepted to hospitalist for atypical chest pain and awaiting transfer to the floor. Medical Records Medical records reviewed: Yes I reviewed the patient's medical records. Imaging Data Radiologic Study: Imaging: CT Scan Radiologist's impression: IMPRESSION: 1. ? There are diffuse interstitial infiltrates present. This may represent cardiogenic versus noncardiogenic edema. An acute inflammatory process and/or infectious process/pneumonia are not excluded. 2. ? Scattered patchy ground-glass opacities within the lungs. These findings are nonspecific and may represent hypoventilatory change,edema, hemorrhage, or an infectious/inflammatory process (acute or chronic). There is heterogeneous attenuation of the pulmonary parenchyma, consistent with air trapping from underlying small airways disease. 3. ? There is no evidence of filling defects within the pulmonary arterial circulation to suggest pulmonary embolism. 4. ? A moderate to large hiatal hernia is present. 5. ? Nodule present within the right breast consider mammography. 6. ? Multiple pulmonary nodules present measuring 4-6 mm in diameter.For patients at low risk (minimal or absent history of smoking and of other known risk factors), no routine follow-up is indicated. For patients at high risk (history of smoking or of other known risk factors), consider optional CT Chest at 12 months. (Reference: [facility]). Radiologic Study #2: Imaging: CT Scan Radiologist's impression: IMPRESSION: 1. ? Scattered patchy ground-glass opacities within the lungs. These findings are nonspecific and may represent hypoventilatory change,edema, hemorrhage, or an infectious/inflammatory process (acute or chronic). Possible 8 mm nodule present on image 12 series 4 right lower lobe of the lung.For patients at low risk (minimal or absent history of smoking and of other known risk factors), recommend CT Chest at 6-12 months, then consider CT Chest at 18-24 months. For patients at high risk (history of smoking or of other known risk factors), recommend CT Chest at 6-12 months, then CT Chest at 18-24 months. (Reference: [facility]). 2. ? There are fluid-filled loops of small bowel with air-fluid levels. No significant bowel wall thickening or inflammatory changes. No evidence of obstruction. Consider early enteritis. 3. ? Constipation Radiologic Study #3: Imaging: X-Ray Radiologist's impression: IMPRESSION: There are diffuse interstitial infiltrates present. This may represent cardiogenic versus noncardiogenic edema. An acute inflammatory process and/or infectious process/pneumonia are not excluded. Lab Data Lab results reviewed: Yes I reviewed the patient's lab results. Labs: Laboratory Tests Range/Units 03/30/23 03/30/23 03/30/23 20:47 20:47 20:47 WBC (4.4-10.8) 10^3/uL 4.98 RBC (3.93-5.22) 10^6/uL 3.57 L Hgb (11.2-15.7) g/dL 11.0 L Hct (36.0-46.0) % 32.1 L MCV (80-95) fL 90 MCH (27.0-33.0) pg 30.8 MCHC (32.0-36.0) % 34.3 RDW (11.7-14.6) % 13.4 Plt Count (130-400) 10^3/uL 39 L MPV (8.0-11.0) fL 12.3 H Immature Gran % 0.0 Neutrophils % 72.0 Lymphocytes % 20.0 Atypical Lymphs % 1 Monocytes % 7.0 Eosinophils % 0.0 Basophils % 0.0 Nucleated RBC % (0.0-0.3) % 0.0 Absolute Neutrophils (1.2-6.7) 10^3/uL 3.59 Absolute Lymphocytes (1.2-3.4) 10^3/uL 1.05 L Absolute Monocytes (0.1-0.8) 10^3/uL 0.35 Absolute Eosinophils (0.0-0.7) 10^3/uL 0.00 Absolute Basophils (0.0-0.2) 10^3/uL 0.00 RBC Morphology Normal D-Dimer Cancelled Sodium (136-145) mmol/L 138 Potassium (3.5-5.1) mmol/L 3.4 L Chloride (98-107) mmol/L 102 Carbon Dioxide (21.0-32.0) mmol/L 27.8 Anion Gap (3-11) mmol/L 8.2 BUN (7-18) mg/dL 19 H Creatinine (0.55-1.02) mg/dL 1.0 Est GFR (CKD-EPI 2020) (mL/min/1.73m2) 61.36 Glucose (74-106) mg/dL 100 Calcium (8.5-10.1) mg/dL 8.3 L Magnesium (1.8-2.4) mg/dL 1.8 Total Bilirubin (0.2-1.0) mg/dL 1.7 H AST (15-37) U/L 108 H ALT (14-59) U/L 80 H Alkaline Phosphatase (46-116) U/L 322 H Troponin I (<or=60) ng/L 113 H* NT-Pro-B Natriuret Pep (<300) pg/mL 1787 H Total Protein (6.4-8.2) g/dL 5.8 L Albumin (3.4-5.0) g/dL 2.5 L Range/Units 03/30/23 21:06 WBC (4.4-10.8) 10^3/uL RBC (3.93-5.22) 10^6/uL Hgb (11.2-15.7) g/dL Hct (36.0-46.0) % MCV (80-95) fL MCH (27.0-33.0) pg MCHC (32.0-36.0) % RDW (11.7-14.6) % Plt Count (130-400) 10^3/uL MPV (8.0-11.0) fL Immature Gran % Neutrophils % Lymphocytes % Atypical Lymphs % Monocytes % Eosinophils % Basophils % Nucleated RBC % (0.0-0.3) % Absolute Neutrophils (1.2-6.7) 10^3/uL Absolute Lymphocytes (1.2-3.4) 10^3/uL Absolute Monocytes (0.1-0.8) 10^3/uL Absolute Eosinophils (0.0-0.7) 10^3/uL Absolute Basophils (0.0-0.2) 10^3/uL RBC Morphology D-Dimer > 7500 H Sodium (136-145) mmol/L Potassium (3.5-5.1) mmol/L Chloride (98-107) mmol/L Carbon Dioxide (21.0-32.0) mmol/L Anion Gap (3-11) mmol/L BUN (7-18) mg/dL Creatinine (0.55-1.02) mg/dL Est GFR (CKD-EPI 2020) (mL/min/1.73m2) Glucose (74-106) mg/dL Calcium (8.5-10.1) mg/dL Magnesium (1.8-2.4) mg/dL Total Bilirubin (0.2-1.0) mg/dL AST (15-37) U/L ALT (14-59) U/L Alkaline Phosphatase (46-116) U/L Troponin I (<or=60) ng/L NT-Pro-B Natriuret Pep (<300) pg/mL Total Protein (6.4-8.2) g/dL Albumin (3.4-5.0) g/dL HPI General Date/Time Provider Initiated Documentation: 03/30/23 20:24 . Limitations to Documentation: no limitations . Information obtained by: patient . HPI Narrative: 67yo female presenting for epigastric/substernal pressure and mild pain as well as shortness of breath. Pain is dull, worse with inspiration, non-radiating. She feels that she cannot take a deep breath, attributes this to feeling abdominal bloating. Does have nausea, no vomiting, passing flatus, normal bowel movement yesterday. No palpitations, lightheadedness, orthopnea, or LE edema. No fevers, chills, rash, diarrhea, melena, or other concerns. Related Data Home Medications Medication Instructions Recorded Confirmed fluticasone propionate 115 2 puff inhalation BID PRN PRN 09/24/16 01/10/23 mcg-salmeterol 21 mcg/actuation HFA inhaler (Advair HFA) loratadine 10 mg tablet 10 mg PO DAILY 08/06/20 01/10/23 omeprazole 20 mg capsule,delayed 20 mg PO Q OTHER DAY 08/06/20 01/10/23 release vitamin B complex 1 tab PO DAILY 08/06/20 01/10/23 multivitamin 1 tab PO DAILY 08/20/20 01/10/23 triamcinolone acetonide 55 mcg 2 spray intranasal DAILY PRN 12/30/20 01/10/23 nasal spray aerosol (Nasacort) albuterol sulfate 90 mcg/actuation 2 puff inhalation Q4-5H 02/11/21 01/10/23 aerosol inhaler (ProAir HFA) calcium carbonate 500 mg calcium 500 mg PO DAILY 02/11/21 01/10/23 (1,250 mg) tablet (Calcium 500) ibuprofen 200 mg capsule 200 mg PO PRN PRN 02/11/21 01/10/23 cholecalciferol (vitamin D3) 25 25 mcg PO DAILY 08/17/21 01/10/23 mcg (1,000 unit) capsule magnesium 250 mg tablet 500 mg PO DAILY 08/17/21 01/10/23 montelukast 10 mg tablet 10 mg PO DAILY 08/17/21 01/10/23 omega-3 fatty acids 1,000 mg 2,000 mg PO BID 08/17/21 01/10/23 capsule ferrous sulfate 325 mg (65 mg 325 mg PO BID 02/22/22 01/10/23 iron) tablet (iron) Allergies Allergy/AdvReac Type Severity Reaction Status Date / Time Penicillins Allergy Intermediate Skin Rash Verified 03/29/23 08:55 codeine AdvReac Intermediate Nausea Verified 03/29/23 08:55 General Stated Complaint: Chest Pain MAYITO: 3 Review of Systems Narrative: see HPI PFSH All Active Problems (Updated 03/29/23 @ 15:22 by Oscar Hou MD) Nausea (Acute) Occult blood positive stool (Acute) Iron deficiency anemia (Acute) Colon polyp (Acute ~08/21/21) Medical History Asthma Basal cell carcinoma (BCC) of chest Bilateral primary osteoarthritis of hip Chondrodermatitis nodularis helicis Cortical cataract of right eye (06/05/18) Elevated blood pressure reading Epistaxis (05/27/14) GERD (gastroesophageal reflux disease) Maltracking of right patella Myalgia 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/14) Osteoarthritis of left knee Osteoarthritis of right knee Posterior subcapsular age-related cataract, right eye (~06/05/18) Seborrheic keratoses Skin lesion of face Trochanteric bursitis of both hips (12/20/16) Surgical History Abdominal hysterectomy Cholecystectomy H/O cataract removal with insertion of prosthetic lens R H/O total hip arthroplasty B/L hips H/O total knee replacement R TKA History of colonoscopy with polypectomy (~08/21/21) History of total left knee replacement (12/31/20) Ligation of fallopian tube Social History Smoking/Tobacco Use Status: Never Smoking risk assessment performed?: Yes Alcohol Intake: current Alcohol Intake frequency: holidays/special occasions only Drug use: Never Substance use type: does not use Housing: house Current gender identity: female Do you feel safe at home: Yes Do you feel safe in your relationship?: Yes Exam Narrative Exam Narrative: General: Alert, well nourished, appears uncomfortable. Head: Normocephalic, atraumatic Neck: Trachea midline, Neck supple. ENT: MMM. No oropharnygeal lesions or exudate. Cardiac: RRR, no murmurs appreciated Resp: Tachypneic, shallow breaths. CTAB. O2 sat 88% on room air, 94+% on 2L NC. Abd: Soft, mildly distended, diffusely mildly tender to palpation : No suprapubic tenderness. No CVA tenderness. Extremities: No deformities. No peripheral edema. Neurologic: GCS 15. Moves all extremities freely against gravity Course Vital Signs Vital signs: Vital Signs Temperature 36.4 C L 03/30/23 20:29 Pulse 60 03/30/23 20:29 Respiratory Rate 22 03/30/23 20:29 Blood Pressure 120/81 03/30/23 20:29 Pulse Oximetry 92 03/30/23 20:29 Temperature 36.4 C L 03/30/23 20:29 Temperature Source Temporal Artery Scan 03/30/23 20:29 Pulse 60 03/30/23 20:29 Respiratory Rate 22 03/30/23 20:29 Respiratory Effort Normal 03/30/23 20:36 Blood Pressure 120/81 03/30/23 20:29 Pulse Oximetry 92 03/30/23 20:29 Oxygen Delivery Method Room Air 03/30/23 20:29 Oxygen Flow Rate 0 03/30/23 20:29 Lab/Test Results Lab/Test Results: Laboratory Tests Range/Units 03/30/23 03/30/23 03/30/23 20:47 20:47 20:47 WBC (4.4-10.8) 10^3/uL 4.98 RBC (3.93-5.22) 10^6/uL 3.57 L Hgb (11.2-15.7) g/dL 11.0 L Hct (36.0-46.0) % 32.1 L MCV (80-95) fL 90 MCH (27.0-33.0) pg 30.8 MCHC (32.0-36.0) % 34.3 RDW (11.7-14.6) % 13.4 Plt Count (130-400) 10^3/uL 39 L MPV (8.0-11.0) fL 12.3 H Immature Gran % 0.0 Neutrophils % 72.0 Lymphocytes % 20.0 Atypical Lymphs % 1 Monocytes % 7.0 Eosinophils % 0.0 Basophils % 0.0 Nucleated RBC % (0.0-0.3) % 0.0 Absolute Neutrophils (1.2-6.7) 10^3/uL 3.59 Absolute Lymphocytes (1.2-3.4) 10^3/uL 1.05 L Absolute Monocytes (0.1-0.8) 10^3/uL 0.35 Absolute Eosinophils (0.0-0.7) 10^3/uL 0.00 Absolute Basophils (0.0-0.2) 10^3/uL 0.00 RBC Morphology Normal D-Dimer Cancelled Sodium (136-145) mmol/L 138 Potassium (3.5-5.1) mmol/L 3.4 L Chloride (98-107) mmol/L 102 Carbon Dioxide (21.0-32.0) mmol/L 27.8 Anion Gap (3-11) mmol/L 8.2 BUN (7-18) mg/dL 19 H Creatinine (0.55-1.02) mg/dL 1.0 Est GFR (CKD-EPI 2020) (mL/min/1.73m2) 61.36 Glucose (74-106) mg/dL 100 Calcium (8.5-10.1) mg/dL 8.3 L Magnesium (1.8-2.4) mg/dL 1.8 Total Bilirubin (0.2-1.0) mg/dL 1.7 H AST (15-37) U/L 108 H ALT (14-59) U/L 80 H Alkaline Phosphatase (46-116) U/L 322 H Troponin I (<or=60) ng/L 113 H* NT-Pro-B Natriuret Pep (<300) pg/mL 1787 H Total Protein (6.4-8.2) g/dL 5.8 L Albumin (3.4-5.0) g/dL 2.5 L Range/Units 03/30/23 21:06 WBC (4.4-10.8) 10^3/uL RBC (3.93-5.22) 10^6/uL Hgb (11.2-15.7) g/dL Hct (36.0-46.0) % MCV (80-95) fL MCH (27.0-33.0) pg MCHC (32.0-36.0) % RDW (11.7-14.6) % Plt Count (130-400) 10^3/uL MPV (8.0-11.0) fL Immature Gran % Neutrophils % Lymphocytes % Atypical Lymphs % Monocytes % Eosinophils % Basophils % Nucleated RBC % (0.0-0.3) % Absolute Neutrophils (1.2-6.7) 10^3/uL Absolute Lymphocytes (1.2-3.4) 10^3/uL Absolute Monocytes (0.1-0.8) 10^3/uL Absolute Eosinophils (0.0-0.7) 10^3/uL Absolute Basophils (0.0-0.2) 10^3/uL RBC Morphology D-Dimer > 7500 H Sodium (136-145) mmol/L Potassium (3.5-5.1) mmol/L Chloride (98-107) mmol/L Carbon Dioxide (21.0-32.0) mmol/L Anion Gap (3-11) mmol/L BUN (7-18) mg/dL Creatinine (0.55-1.02) mg/dL Est GFR (CKD-EPI 2020) (mL/min/1.73m2) Glucose (74-106) mg/dL Calcium (8.5-10.1) mg/dL Magnesium (1.8-2.4) mg/dL Total Bilirubin (0.2-1.0) mg/dL AST (15-37) U/L ALT (14-59) U/L Alkaline Phosphatase (46-116) U/L Troponin I (<or=60) ng/L NT-Pro-B Natriuret Pep (<300) pg/mL Total Protein (6.4-8.2) g/dL Albumin (3.4-5.0) g/dL
[2023-03-31] VITALS (13 sets, daily range): BP systolic 99–136; BP diastolic 61–80; PULSE 54–67; RESP 2–18; TEMP 36.1–37.7; O2SAT 92–97
--- NOTE | 2023-03-31 00:02 | HPE_ITS ---
Date of service: 03/31/23 Time of Service: 00:02 Assessment and Plan Assessment and plan (1) Atypical chest pain: Start date: 03/30/23 Status: Acute Assessment and plan: This is a 67-year-old lady with presenting symptoms of chest pressure with atypical chest pain occurring at rest and associated with abdominal bloating. She did respond to IV Lasix and has mild hypoxemia weaning off oxygen at this time. She does have a possibility of pneumonia by imaging and this is being covered with antibiotics. She is not having pleuritic chest pain. She does hav e a history of decreased exercise tolerance over the last year and will have an echocardiogram along with trending troponins and eventually should have an exercise stress test. She has no history of CAD. She was not given nitroglycerin in the ED. Long-term cardiology follow-up would be appropriate. (2) CHF (congestive heart failure): Start date: 03/30/23 Status: Acute Assessment and plan: Patient has a question of congestion on chest x-ray and did respond to IV Lasix. BNP was elevated. Follow-up echocardiogram and cardiology evaluation as above. (3) Pneumonia: Start date: 03/30/23 Status: Acute Assessment and plan: Possible pneumonia on chest x-ray with new oxygen needs and asthmatic. Patient was placed on Rocephin and doxycycline with follow-up clinically. At discharge she can be converted to oral antibiotic therapy. (4) Elevated troponin level not due to acute coronary syndrome: Status: Acute Assessment and plan: Minimal elevation of troponins the patient having heart strain with her pulmonary process. Trend troponins and follow-up echocardiogram with cardiology evaluation eventually. This appears to be a secondary problem rather than primary cardiac event. (5) Asthma: Assessment and plan: Continue outpatient medical therapy with acute nebulizer treatment for increase bronchospasm with possible pneumonia. O2 supplementation weaning as possible. (6) Thrombocytopenia: Status: Chronic Assessment and plan: Patient appears to have a low platelet count on previous measurements. She states that she had elevated troponin levels in the past when she had iron deficiency anemia. This may be associated with liver disease with fatty liver and elevated LFTs. Follow-up lab and consider further evaluation for liver disease and also hematological processes with patient having two bone marrow cell lines decreased including hemoglobin and platelets at this time. WBC is normal. (7) Anemia: Status: Chronic Assessment and plan: History of iron deficiency anemia but now with low platelets as well as stated above, hematology evaluation may be appropriate. (8) Elevated liver function tests: Status: Acute Assessment and plan: Suggested fatty liver on imaging, patient will have hepatitis screen which appears to not have been done in the past. There may be associated thrombocytopenia but no elevation of the PT/INR. Follow-up clinically. Consider ultrasound of the liver. History of Present Illness History of Present Illness Chief Complaint: 2-day history of nausea and vomiting, then bloating with chest pressure Narrative: This is a 67-year-old lady with a history of asthma and allergic symptoms who has had a 2-day history, presenting to the ED initially with GI symptoms including nausea and vomiting and feeling feverish with a sore throat with evaluation and being sent home. The day of admission she presented with abdo petra bloating and chest pressure and was found to have positive troponins with question of CHF and/or pneumonia as well as elevated liver function test with a low platelet count with chronic anemia and new oxygen needs which were minimal but present. She responded to IV Lasix with diuresis and is not having chest pressure at the time that I interviewed her. Her troponins are being trended and she is on IV antibiotic therapy for possible pneumonia while awaiting further studies such as echocardiogram which is ordered and hepatitis profile which may not return quickly but needs to be evaluated. Imaging did suggest fatty liver and patient is nonalcoholic. She is not having abdominal bloating at this time. She has had no further nausea or vomiting. As stated she is not having chest pressure or chest pain presently. She has had a decrease in exercise endurance recently usually riding an exercise bicycle. She denies any exertional chest pressure or chest pain but simply less endurance. She had an exercise stress test which she could not complete in the recent past and has seen cardiology previously but has never had a diagnosis of coronary artery disease. She is overweight but this is stable. She has had no peripheral edema. She denies any increasing shortness of breath or PND. Patient is a full code. Review of Systems Narrative: 13 point review of systems otherwise unrevealing or stable. [facility] All Active Problems (Updated 03/31/23 @ 07:42 by Huey Watkins) Elevated liver function tests (Acute) Anemia (Chronic) Pneumonia (Acute) Thrombocytopenia (Chronic) Elevated troponin level not due to acute coronary syndrome (Acute) CHF (congestive heart failure) (Acute) Atypical chest pain (Acute) Nausea (Acute) Occult blood positive stool (Acute) Iron deficiency anemia (Acute) Colon polyp (Acute ~08/21/21) Medical History Asthma Basal cell carcinoma (BCC) of chest Bilateral primary osteoarthritis of hip Chondrodermatitis nodularis helicis Cortical cataract of right eye (06/05/18) Elevated blood pressure reading Epistaxis (05/27/14) GERD (gastroesophageal reflux disease) Maltracking of right patella Myalgia 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/14) Osteoarthritis of left knee Osteoarthritis of right knee Posterior subcapsular age-related cataract, right eye (~06/05/18) Seborrheic keratoses Skin lesion of face Trochanteric bursitis of both hips (12/20/16) Surgical History Abdominal hysterectomy Cholecystectomy H/O cataract removal with insertion of prosthetic lens R H/O total hip arthroplasty B/L hips H/O total knee replacement R TKA History of colonoscopy with polypectomy (~08/21/21) History of total left knee replacement (12/31/20) Ligation of fallopian tube Social History Smoking/Tobacco Use Status: Never Smoking risk assessment performed?: Yes Alcohol Intake: current Alcohol Intake frequency: holidays/special occasions only Drug use: Never Substance use type: does not use Housing: house Current gender identity: female Do you feel safe at home: Yes Do you feel safe in your relationship?: Yes Meds Allergies and Home Medications Allergies Allergy/AdvReac Type Severity Reaction Status Date / Time Penicillins Allergy Intermediate Skin Rash Verified 03/29/23 08:55 codeine AdvReac Intermediate Nausea Verified 03/29/23 08:55 Home Medications Medication Instructions Recorded Confirmed Type fluticasone propionate 115 2 puff inhalation BID PRN PRN 09/24/16 03/31/23 History mcg-salmeterol 21 mcg/actuation HFA inhaler (Advair HFA) loratadine 10 mg tablet 10 mg PO DAILY 08/06/20 03/31/23 History omeprazole 20 mg capsule,delayed 20 mg PO Q OTHER DAY 08/06/20 03/31/23 History release vitamin B complex 1 tab PO DAILY 08/06/20 03/31/23 History multivitamin 1 tab PO DAILY 08/20/20 03/31/23 History triamcinolone acetonide 55 mcg 2 spray intranasal DAILY PRN 12/30/20 03/31/23 History nasal spray aerosol (Nasacort) albuterol sulfate 90 mcg/actuation 2 puff inhalation Q4-5H 02/11/21 03/31/23 History aerosol inhaler (ProAir HFA) calcium carbonate 500 mg calcium 500 mg PO DAILY 02/11/21 03/31/23 History (1,250 mg) tablet (Calcium 500) ibuprofen 200 mg capsule 200 mg PO PRN PRN 02/11/21 03/31/23 History cholecalciferol (vitamin D3) 25 25 mcg PO DAILY 08/17/21 03/31/23 History mcg (1,000 unit) capsule magnesium 250 mg tablet 500 mg PO DAILY 08/17/21 03/31/23 History montelukast 10 mg tablet 10 mg PO DAILY 08/17/21 03/31/23 History omega-3 fatty acids 1,000 mg 2,000 mg PO BID 08/17/21 03/31/23 History capsule ferrous sulfate 325 mg (65 mg 325 mg PO BID 02/22/22 03/31/23 History iron) tablet (iron) Exam Narrative Exam Narrative: General: Patient appears appropriate for age, short stature and obese. She is alert and oriented x3. In no acute distress. HEENT: Normocephalic, eyes with pupils equal react light symmetrically, extraocular movement intact and sclera anicteric. Oropharynx with moist mucosa. Neck: Supple without JVD. Back: Stooped posture without CVA tenderness. Lungs: Bronchovesicular breath sounds diffusely with no focalizing rales or rhonchi. Scant expiratory wheeze. Slight increased expiratory phase. Breast: Exam deferred. Heart: Regular rate and rhythm with no murmurs or gallop appreciated. Abdomen: Obese contour, soft and nontender to palpation with no palpable hepatosplenomegaly. Bowel sounds positive all quadrants. Genitalia/rectal: Exam deferred. Extremities: Without clubbing, cyanosis or pitting edema. Good capillary refill. Skin: Pale, warm and dry. Good turgor. Neuro: Cranial nerves II through XII gross intact, no focalizing motor deficits. No tremor. Psych: Normal affect and mood. No abnormal thought processes. Remote and recent memory intact. Results Imaging Imaging Studies: Exam: CTA Chest With Contrast Exam date and time: 03/30/2023 10:30 PM Age: 67 years old Clinical indication: Shortness of breath and other: Short of breath, hypoxia, elevated dimer TECHNIQUE: Imaging protocol: Computed tomographic angiography of the chest with contrast. Exam focused on the arteries. 3D rendering (Not supervised by radiologist): MIP and/or 3D reconstructed images were created by the technologist. Radiation optimization: All CT scans at this facility use at least one of these dose optimization techniques: automated exposure control; mA and/or kV adjustment per patient size (includes targeted exams where dose is matched to clinical indication); or iterative reconstruction. Contrast material: OMNI 350; Contrast volume: 100 ml; Contrast route: INTRAVENOUS (IV);? COMPARISON: CT CHEST PE CTA 02/22/2022 12:13 PM FINDINGS: Pulmonary arteries: New the pulmonary artery is in the upper limits of normal in size. There is no evidence of filling defects within the pulmonary arterial circulation to suggest pulmonary embolism. Aorta: The aorta is normal. Lungs: There are diffuse interstitial infiltrates present. This may represent cardiogenic versus noncardiogenic edema. An acute inflammatory process and/or infectious process/pneumonia are not excluded. Scattered patchy ground-glass opacities within the lungs. These findings are nonspecific and may represent hypoventilatory change,edema, hemorrhage, or an infectious/inflammatory process (acute or chronic). Focal atelectasis consolidation right lower lobe of the lung. Multiple pulmonary nodules present measuring 4-6 mm in diameter.For patients at low risk (minimal or absent history of smoking and of other known risk factors), no routine follow-up is indicated. For patients at high risk (history of smoking or of other known risk factors), consider optional CT Chest at 12 months. (Reference: [facility]). Pleural spaces: There is no evidence of pneumothorax. There are no pleural effusions present. Heart: Heart is mildly enlarged. No pericardial effusion. The right ventricular to left ventricular ratio is normal measuring 0.9. Lymph nodes: Unremarkable. No enlarged lymph nodes. Diaphragm: A moderate to large hiatal hernia is present. Bones/joints: Unremarkable. No acute fracture. Soft tissues: Nodule present within the right breast consider mammography. IMPRESSION: 1. ? There are diffuse interstitial infiltrates present. This may represent cardiogenic versus noncardiogenic edema. An acute inflammatory process and/or infectious process/pneumonia are not excluded. 2. ? Scattered patchy ground-glass opacities within the lungs. These findings are nonspecific and may represent hypoventilatory change,edema, hemorrhage, or an infectious/inflammatory process (acute or chronic). There is heterogeneous attenuation of the pulmonary parenchyma, consistent with air trapping from underlying small airways disease. 3. ? There is no evidence of filling defects within the pulmonary arterial circulation to suggest pulmonary embolism. 4. ? A moderate to large hiatal hernia is present. 5. ? Nodule present within the right breast consider mammography. 6. ? Multiple pulmonary nodules present measuring 4-6 mm in diameter.For patients at low risk (minimal or absent history of smoking and of other known risk factors), no routine follow-up is indicated. For patients at high risk (history of smoking or of other known risk factors), consider optional CT Chest at 12 months. (Reference: [facility]). Exam: CT Abdomen And Pelvis With Contrast Exam date and time: 03/30/2023 9:31 PM Age: 67 years old Clinical indication: Other: Bloating, abdominal pain, epigstric pressure TECHNIQUE: Imaging protocol: Computed tomography of the abdomen and pelvis with contrast. Contrast material: 350; Contrast volume: 100 ml; Contrast route: INTRAVENOUS (IV);? COMPARISON: CT ABDOMEN PELVIS W 03/29/2023 12:23 PM FINDINGS: Lungs: There is minimal bibasilar atelectasis. Scattered patchy ground-glass opacities within the lungs. These findings are nonspecific and may represent hypoventilatory change,edema, hemorrhage, or an infectious/inflammatory process (acute or chronic). Mediastinal space: Fluid is seen within the esophagus consistent with gastroesophageal reflux. Diaphragm: A moderate hiatal hernia is present. Liver: There is a diffuse decrease in hepatic parenchymal density, consistent with mild fatty infiltration. There are no focal liver lesions present. There is no evidence of intrahepatic or extrahepatic biliary ductal dilation. Gallbladder and bile ducts: There has been a cholecystectomy. Pancreas: There is mild pancreatic atrophy and fatty replacement. Spleen: The spleen is normal. Adrenal glands: The adrenal glands are normal without evidence of mass or enlargement. Kidneys and ureters: The kidneys are normal no evidence of nephrolithiasis or hydronephrosis. The ureters are normal caliber and follow a normal caliber and course. Stomach and bowel: There is no evidence of intestinal obstruction. There are fluid-filled loops of small bowel with air-fluid levels. No significant bowel wall thickening or inflammatory changes. No evidence of obstruction. Consider early enteritis. There is moderate increased colonic fecal content. The colon is mildly distended. These findings suggest a moderate degree of constipation. Clinical correlation recommended. Appendix: A normal appendix is identified. There is no evidence of distention or periappendiceal inflammation to suggest appendicitis. Intraperitoneal space: There is no free intraperitoneal air. There is no evidence of free intraperitoneal or pelvic fluid. Vasculature: The abdominal aorta and iliac arteries are tortuous which may represent long-standing hypertension.The aorta demonstrates mild atherosclerotic calcification. The arterial peripheral vasculature demonstrates diffuse mild atherosclerotic calcification. The inferior venacava appears normal.The portal, mesenteric and splenic veins are patent. Lymph nodes: There is no evidence of lymphadenopathy. Urinary bladder: The bladder is normal. Reproductive: There has been a hysterectomy. No adnexal cysts or masses are identified. Bones/joints: There is a moderate to severe convex dextroscoliosis of the lumbar spine. There are bilateral total hip replacements present. Beam hardening artifact obscures bony and soft-tissue detail within the pelvis. The thoracolumbar spine demonstrates moderate degenerative changes at multiple levels. The lumbar spine demonstrates moderate to severe degenerative changes. Soft tissues: There is a fat-containing umbilical hernia. IMPRESSION: 1. ? Scattered patchy ground-glass opacities within the lungs. These findings are nonspecific and may represent hypoventilatory change,edema, hemorrhage, or an infectious/inflammatory process (acute or chronic). Possible 8 mm nodule present on image 12 series 4 right lower lobe of the lung.For patients at low risk (minimal or absent history of smoking and of other known risk factors), recommend CT Chest at 6-12 months, then consider CT Chest at 18-24 months. For patients at high risk (history of smoking or of other known risk factors), recommend CT Chest at 6-12 months, then CT Chest at 18-24 months. (Reference: [facility]). 2. ? There are fluid-filled loops of small bowel with air-fluid levels. No significant bowel wall thickening or inflammatory changes. No evidence of obstruction. Consider early enteritis. 3. ? Constipation Exam: XR Chest Exam date and time: 03/30/2023 9:36 PM Age: 67 years old Clinical indication: Shortness of breath TECHNIQUE: Imaging protocol: Radiologic exam of the chest. Views: 2 views. COMPARISON: CR XR CHEST 2V PA LATERAL 03/29/2023 12:15 PM FINDINGS: Lungs: There are diffuse interstitial infiltrates present. This may represent cardiogenic versus noncardiogenic edema. An acute inflammatory process and/or infectious process/pneumonia are not excluded. Pleural spaces: There is no evidence of pneumothorax. There are no pleural effusions present. Heart/Mediastinum: There is a moderate size hiatal hernia present. There is moderate cardiomegaly. Vasculature: The aorta is ectatic and torturous. Bones/joints: There is an exaggerated kyphosis with anterior compressions of the midthoracic spine. The skeletal structures and soft tissues show no evidence of fracture or other acute processes. Soft tissues: The soft tissues of the extrathoracic region are unremarkable. IMPRESSION: There are diffuse interstitial infiltrates present. This may represent cardiogenic versus noncardiogenic edema. An acute inflammatory process and/or infectious process/pneumonia are not excluded. Labs 03/31/23 06:05 03/31/23 06:05 Labs: Laboratory Results - last 24 hr 03/30/23 03/30/23 03/30/23 20:47 20:47 20:47 WBC 4.98 RBC 3.57 L Hgb 11.0 L Hct 32.1 L MCV 90 MCH 30.8 MCHC 34.3 RDW 13.4 Plt Count 39 L MPV 12.3 H Immature Gran % 0.0 Neutrophils % 72.0 Lymphocytes % 20.0 Atypical Lymphs % 1 Monocytes % 7.0 Eosinophils % 0.0 Basophils % 0.0 Nucleated RBC % 0.0 Absolute Neutrophils 3.59 Absolute Lymphocytes 1.05 L Absolute Monocytes 0.35 Absolute Eosinophils 0.00 Absolute Basophils 0.00 RBC Morphology Normal D-Dimer Cancelled Sodium 138 Potassium 3.4 L Chloride 102 Carbon Dioxide 27.8 Anion Gap 8.2 BUN 19 H Creatinine 1.0 Est GFR (CKD-EPI 2020) 61.36 Glucose 100 Calcium 8.3 L Magnesium 1.8 Total Bilirubin 1.7 H AST 108 H ALT 80 H Alkaline Phosphatase 322 H Troponin I 113 H* NT-Pro-B Natriuret Pep 1787 H Total Protein 5.8 L Albumin 2.5 L 03/30/23 21:06 WBC RBC Hgb Hct MCV MCH MCHC RDW Plt Count MPV Immature Gran % Neutrophils % Lymphocytes % Atypical Lymphs % Monocytes % Eosinophils % Basophils % Nucleated RBC % Absolute Neutrophils Absolute Lymphocytes Absolute Monocytes Absolute Eosinophils Absolute Basophils RBC Morphology D-Dimer > 7500 H Sodium Potassium Chloride Carbon Dioxide Anion Gap BUN Creatinine Est GFR (CKD-EPI 2020) Glucose Calcium Magnesium Total Bilirubin AST ALT Alkaline Phosphatase Troponin I NT-Pro-B Natriuret Pep Total Protein Albumin Last Vital Signs Temp 36.4 C L 03/30/23 20:29 Pulse 60 03/30/23 20:29 Resp 22 03/30/23 20:29 BP 120/81 03/30/23 20:29 Pulse Ox 92 03/30/23 20:29 Time Spent Time spent with Patient: >75 minutes Time was spent: preparing to see the patient(eg.review tests), obtaining and/or reviewing separately otained hiistory, ordering medications,tests, procedures, referring, communicating with other health healthcare social worker, indepentently interpreting results, counseling the patient and care coordination
[2023-03-31 00:20] LABS: Troponin I 190 ng/L (<or=60)
[2023-03-31] MEDS: Potassium Chloride 20 MEQ TABCR 40 MEQ PO ×2 (00:27→16:55)
[2023-03-31] MEDS: Furosemide 40 MG/4 ML VIAL IVP (00:28)
[2023-03-31] MEDS: cefTRIAXone 1 GM/50 ML BAG IVPB (01:00)
[2023-03-31] MEDS: DOXYCYCLINE 100 MG in Normal Saline 100 ML IVPB (01:00)
[2023-03-31 02:09] LABS: Bilirubin Negative (Negative); Blood Negative (Negative); Clarity Clear (Clear); Glucose Negative (Negative); Ketones Negative (Negative); Leukocyte Esterase Negative (Negative); Nitrite Negative (Negative); pH 6.5 (5-8)
[2023-03-31 02:45] LABS: TSH (W/Ref FT4) 2.29 uIU/mL (0.36-3.74)
[2023-03-31 06:49] LABS: HCT 31.8 % (36.0-46.0); HGB 10.6 g/dL (11.2-15.7); MCH 29.9 pg (27.0-33.0); MCHC 33.3 % (32.0-36.0); MCV 90 fL (80-95); MPV 12.8 fL (8.0-11.0); RBC 3.54 10^6/uL (3.93-5.22); RDW 13.6 % (11.7-14.6); RDW-SD 45.1 fL; WBC 5.38 10^3/uL (4.4-10.8)
[2023-03-31 07:03] LABS: INR 0.9 (0.9-1.1); Prothrombin Time 9.6 sec (9.3-11.0)
[2023-03-31 07:13] LABS: ALT 79 U/L (14-59); AST 106 U/L (15-37); Albumin 2.3 g/dL (3.4-5.0); Alkaline Phosphatase 329 U/L (46-116); Anion Gap 6.6 mmol/L (3-11); BUN 18 mg/dL (7-18); Bilirubin, Total 1.2 mg/dL (0.2-1.0); CO2 30.4 mmol/L (21.0-32.0); Calcium 8.1 mg/dL (8.5-10.1); Chloride 103 mmol/L (98-107); Estimated GFR 61.36 (mL/min/1.73m2); Glucose 104 mg/dL (74-106); Magnesium 1.7 mg/dL (1.8-2.4); Potassium 3.5 mmol/L (3.5-5.1); Sodium 140 mmol/L (136-145); Total Protein 5.7 g/dL (6.4-8.2)
[2023-03-31 07:16] LABS: Troponin I 182 ng/L (<or=60)
[2023-03-31 07:26] LABS: Platelet Count 33 10^3/uL (130-400)
--- NOTE | 2023-03-31 08:00 | DI.US_ITS ---
APPROVED REPORT EXAM: Comprehensive 2D, Doppler, and color-flow Echocardiogram Patient Location: In-Patient Room/Bed: [address]A [facility]orem[facility] Helper: Oscar Sarah RDCS Indications: hypoxemia, atypical CP, elevated troponins, CHF Other Information Study Quality: Good Conclusion Normal left ventricular wall thickness and chamber size. Ejection fraction is 60 to 65%. Wall motio n is normal Normal right ventricular size and systolic function Both atria are normal in size There is no structural or hemodynamically significant valvular disease Estimated right ventricular systolic pressure is 49 mmHg Wall motion Left Ventricle The left ventricle is normal size. The left ventricular systolic function is normal. The left ventric ular ejection fraction is within the normal range. There is normal left ventricular wall thickness. T here is normal LV segmental wall motion. There is no ventricular septal defect visualized. LVEF is 60 -65%. Right Ventricle The right ventricle is normal size. The right ventricular systolic function is normal. The RVSP is 49 .0 mmHg. Atria The left atrium size is normal. The right atrium size is normal. The interatrial septum is intact wi th no evidence for an atrial septal defect. Aortic Valve The aortic valve is normal in structure. Aortic valve is trileaflet. There is no aortic valvular sten osis. No aortic regurgitation is present. Mitral Valve The mitral valve is normal in structure. No evidence of mitral valve stenosis. Trace mitral regurgita tion. Tricuspid Valve The tricuspid valve is normal in structure. There is no tricuspid valve stenosis. Mild tricuspid regu rgitation. Pulmonic Valve The pulmonary valve is normal in structure. There is no pulmonic valvular stenosis. There is no pulmo aspen valvular regurgitation. Great Vessels The aortic root is normal in size. The ascending aorta is normal in size. Aortic arch is normal in ca liber. IVC is normal in size and collapses >50% with inspiration. Pericardium There is no pericardial effusion. 2D Dimensions IVSD d PLAX 0.57 cm F: 0.6-1.0 LV Vol A2C d MOD 79.4 mL LVPW d PLAX 0.60 cm F: 0.6 - 1.0 LV Vol A4C d MOD 84.0 mL LVID d PLAX 4.35 cm F: 3.8 - 5.2 LA vol/ BSA A4C s A-L 36.6 mL/m2 LVDs 2.90 cm F: 2.2 - 3.5 LA Area A4C s MOD 21.18 cm2 Ao Root d 2.95 cm F: 2.7 - 3.3 LV EF A4C MOD 64.2 % Ao Asc Diam d 3.21 cm F: 2.3 - 3.1 LV EF A2C MOD 65.6 % LV EF Teichholz 61.2 % LV EF Biplane MOD 65.8 % LVEF (Brice's) 65.84 % F: 54 - 74 SV 55.46 mL LV Volume 65.62 mL F: 46 - 106 SV Index 30.94 mL/m2 LV Volume Index 36.65 mL/m2 F: 29 - 61 LV Vol Biplane MOD 84.2 mL FS 32.55 % M-Mode TAPSE 2.09 cm (M/F) >1.7 LV Diastology MV E' medial 0.114 (>0.07 m/s) E/A Ratio 0.9 LV E/e MED 7.15 (<14) MV E Vmax 0.82 (0.4-1.3 m/s) MV E' lateral 0.110 (>0.1 m/s) MV A Vmax 0.95 (0.4-1.3 m/s) LV E/e LAT 7.40 (<14) MV E/A Ratio 0.83 MV E/E' medial 7.19 MV E/E' lateral 7.43 Aortic Valve LVOT Area 2.82 cm2 AoV Area Vmax 2.29 cm2 LVOT Vmax 1.47 m/s AoV Area/ BSA (Vmax) 1.28 cm2/m2 LVOT Mean Thomas. 0.90 m/s FAY Mean Thomas. 1.99 cm2 LVOT Peak Grad 8.6 mmHg FAY Mean Thomas. Index 1.11 cm2/m2 LVOT Mean Grad 3.9 mmHg LVOT VTI 0.303 m LVOT Diam s 1.85 cm AoV Vmax 1.81 m/s Velocity Ratio 0.81 AoV Mean Thomas. 1.27 m/s AoV Peak Grad 13.1 mmHg LVOT SV 85.50 mL AoV Mean Grad 7.2 mmHg AoV VTI 0.345 m AoV Area VTI 2.48 cm2 AoV Area/ BSA (VTI) 1.38 cm/m2 Mitral Valve MV DT 240 (160-240 msec) MV PHT 70 msec MV Area PHT 3.16 cm2 MV VTI 0.359 m MV Area VTI 2.38 (4.0-6.0 cm2) Pulmonary Valve PV Vmax 1.05 (0.5-1.5 m/s) RVOT Peak Gr. 1.31 mmHg PV Peak Grad 4.4 mmHg RVOT Mean Gr. 0.70 mmHg PV Mean Grad 2.4 mmHg RVOT VTI 0.123 m PV VTI 0.196 m RVOT Vmax 0.57 m/s Tricuspid Valve TR Peak Grad 45.9 mmHg TR Vmax 3.39 m/s RA Pressure 3.00 mmHg RVSP (TR) 49.0 mmHg
--- NOTE | 2023-03-31 09:07 | INITIAL_ITS ---
Date of service: 03/31/23 Time of Service: 09:07 Care Management Initial Assmt Initial Assessment REASON FOR HOSPITALIZATION:: Atypical chest pain, CHF, pneumonia PREVIOUS FUNCTIONAL STATUS/SOCIAL/FAMILY SUPPORTS:: Lupe lives in [facility] with her Vikas. 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 Lupe is active and independent at baseline. CURRENT FUNCTIONAL STATUS:: Lupe was lying in bed when CM met with her. She is awake and easy to engage in conversation. She has just gone down for an Echo and awaiting results. Lupe has no further questions or concerns at this time. ADVANCE DIRECTIVES:: On file, [facility] is [facility] Has patient been provided with info about the portal/API?: Yes Did the patient sign up for the portal?: No (Prior to admission) CODE STATUS:: Full Code INSURANCE COVERAGE / FINANCIAL ISSUES:: [place] [employer] of [place] Medicare CURRENT HOME/COMMUNITY SERVICES/EQUIPMENT:: None PRIMARY CARE PHYSICIAN:: Jemma Chavez POTENTIAL DISCHARGE NEEDS:: Discharge plan of care, follow up appointments PATIENT/FAMILY EDUCATION NEEDS:: Review discharge instructions, limitations, medications and plan to follow up with outpatient providers. Discuss ask me three TRANSPORTATION:: Via private vehicle with family PLAN:: Anticipate, Lupe will discharge home when medically ready per provider. She will follow up with community providers and her discharge plan of care as instructed. No new [facility] services are anticipated at this time. PFSH All Active Problems (Updated 03/31/23 @ 12:40 by Jesica Spivey NP) Elevated liver function tests (Acute) Anemia (Chronic) Thrombocytopenia (Chronic) Elevated troponin level not due to acute coronary syndrome (Acute) CHF (congestive heart failure) (Acute) Atypical chest pain (Acute) Nausea (Acute) Occult blood positive stool (Acute) Iron deficiency anemia (Acute) Colon polyp (Acute ~08/21/21) Medical History Asthma Basal cell carcinoma (BCC) of chest Bilateral primary osteoarthritis of hip Chondrodermatitis nodularis helicis Cortical cataract of right eye (06/05/18) Elevated blood pressure reading Epistaxis (05/27/14) GERD (gastroesophageal reflux disease) Maltracking of right patella Myalgia 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/14) Osteoarthritis of left knee Osteoarthritis of right knee Posterior subcapsular age-related cataract, right eye (~06/05/18) Seborrheic keratoses Skin lesion of face Trochanteric bursitis of both hips (12/20/16) Surgical History Abdominal hysterectomy Cholecystectomy H/O cataract removal with insertion of prosthetic lens R H/O total hip arthroplasty B/L hips H/O total knee replacement R TKA History of colonoscopy with polypectomy (~08/21/21) History of total left knee replacement (12/31/20) Ligation of fallopian tube Social History Smoking/Tobacco Use Status: Never Smoking risk assessment performed?: Yes Alcohol Intake: current Alcohol Intake frequency: holidays/special occasions only Drug use: Never Substance use type: does not use Housing: house Current gender identity: female Do you feel safe at home: Yes Do you feel safe in your relationship?: Yes
[2023-03-31] MEDS: Omega-3 Fatty Acids 1000 MG CAP 2000 MG PO ×2 (09:24→19:19)
[2023-03-31] MEDS: Montelukast 10 MG TAB PO (09:24)
[2023-03-31] MEDS: Cholecalciferol (Vitamin D3) 1,000 UNIT TAB 1000 UNITS PO (09:24)
[2023-03-31] MEDS: Omeprazole 20 MG CAPCR PO (09:24)
[2023-03-31] MEDS: Magnesium Gluconate 500 MG TAB PO (09:24)
[2023-03-31] MEDS: Ferrous Sulfate 325 MG TAB PO ×2 (09:25→19:19)
[2023-03-31] MEDS: Multivitamin TAB 1 TAB PO (09:25)
[2023-03-31] MEDS: Loratidine 10 MG TAB PO (09:25)
[2023-03-31] MEDS: Calcium Carbonate 1.25 GM TAB PO (09:25)
[2023-03-31 09:58] LABS: Troponin I 144 ng/L (<or=60)
--- NOTE | 2023-03-31 12:39 | DSE_ITS ---
Date of service: 03/31/23 Time of Service: 12:40 DS: Diagnosis Discharge Diagnosis (1) Atypical chest pain: Status: Acute (2) CHF (congestive heart failure): Status: Acute (3) Pneumonia: Status: Resolved (4) Elevated troponin level not due to acute coronary syndrome: Status: Acute (5) Asthma: (6) Thrombocytopenia: Status: Chronic (7) Anemia: Status: Chronic (8) Elevated liver function tests: Status: Acute Discharge Plan Disposition Patient Disposition: Home Condition: Stable Discharge Details Reason For Visit: Atypical Chest Pain, CHF, Thrombocytopenia, Anemia Admit Date/Time: 03/31/23 00:06 Admit Provider: Huey Watkins Attending Provider: Huey Watkins Primary Care Provider: Jemma Chavez Home Meds and New Rx's Prescriptions: No Action magnesium 250 mg tablet 500 mg PO DAILY omega-3 fatty acids 1,000 mg capsule 2,000 mg PO BID cholecalciferol (vitamin D3) 25 mcg (1,000 unit) capsule 25 mcg PO DAILY montelukast 10 mg tablet 10 mg PO DAILY multivitamin Tablet 1 tab PO DAILY omeprazole 20 mg capsule,delayed release(DR/EC) 20 mg PO Q OTHER DAY vitamin B complex Tablet 1 tab PO DAILY Patient Comments: pt unsure of dose loratadine 10 mg Tablet 10 mg PO DAILY ibuprofen 200 mg Capsule 200 mg PO PRN PRN calcium carbonate [Calcium 500] 500 mg calcium (1,250 mg) Tablet 500 mg PO DAILY albuterol sulfate [ProAir HFA] 90 mcg/actuation Hfa Aerosol Inhaler 2 puff INHALATION Q4-5H ferrous sulfate [iron] 325 mg (65 mg iron) Tablet 325 mg PO BID fluticasone propion-salmeterol [Advair HFA] 12 GM HFA aerosol inhaler 2 puff Inhalation BID PRN PRN triamcinolone acetonide [Nasacort] 55 mcg Aerosol,[place] 2 spray INTRANASAL DAILY PRN DS: Data Vitals/I&O Vitals and I&O: Vital Signs Temperature 37.4 C 03/31/23 07:29 Temperature Source Tympanic 03/31/23 07:29 Pulse 64 03/31/23 08:00 Pulse Rhythm Regular 03/31/23 08:00 Respiratory Rate 18 03/31/23 08:00 Respiratory Effort Normal, Non-Labored 03/31/23 08:00 Respiratory Depth Normal 03/31/23 08:00 Respiratory Pattern Normal 03/31/23 08:00 Blood Pressure 112/74 03/31/23 08:00 Pulse Oximetry 92 03/31/23 08:00 Oxygen Delivery Method Nasal Cannula 03/31/23 08:00 Oxygen Flow Rate 0.5 03/31/23 08:00 Pain Level 0 03/31/23 07:29 Intake & Output 03/30/23 03/31/23 03/31/23 23:59 11:59 23:59 Intake Total 410 / 410 Output Total 1650 / 1650 Balance -1240 / -1240 Weight 78.4 kg 77.111 kg Intake: IV 160 / 160 Oral 250 / 250 Output: Urine 1650 / 1650 Other: Urine Color Pale Yellow Urine Appearance Clear Urine Odor None Voiding Methods Toilet Data Completed and Pending Labs on day of discharge: Labs from last 24 hours 03/31/23 03/31/23 03/31/23 09:29 06:05 06:05 WBC RBC Hgb Hct MCV MCH MCHC RDW Plt Count MPV Immature Gran % Neutrophils % Lymphocytes % Atypical Lymphs % Monocytes % Eosinophils % Basophils % Nucleated RBC % Absolute Neutrophils Absolute Lymphocytes Absolute Monocytes Absolute Eosinophils Absolute Basophils RBC Morphology PT 9.6 INR 0.9 D-Dimer Sodium Potassium Chloride Carbon Dioxide Anion Gap BUN Creatinine Est GFR (CKD-EPI 2020) Glucose Calcium Magnesium Total Bilirubin AST ALT Alkaline Phosphatase Troponin I 144 H* NT-Pro-B Natriuret Pep Total Protein Albumin TSH Urine Color Urine Clarity Urine pH Ur Specific [place] Urine Protein Urine Ketones Urine Blood Urine Nitrite Urine Bilirubin Urine Urobilinogen Ur Leukocyte Esterase Urine Glucose Hepatitis A IgM Ab Pending Hep Bs Antigen Pending Hep B Core Total Ab Pending Hepatitis C Antibody Pending 03/31/23 03/31/23 03/31/23 06:05 06:05 01:45 WBC 5.38 RBC 3.54 L Hgb 10.6 L Hct 31.8 L MCV 90 MCH 29.9 MCHC 33.3 RDW 13.6 Plt Count 33 L MPV 12.8 H Immature Gran % Neutrophils % Lymphocytes % Atypical Lymphs % Monocytes % Eosinophils % Basophils % Nucleated RBC % Absolute Neutrophils Absolute Lymphocytes Absolute Monocytes Absolute Eosinophils Absolute Basophils RBC Morphology PT INR D-Dimer Sodium 140 Potassium 3.5 Chloride 103 Carbon Dioxide 30.4 Anion Gap 6.6 BUN 18 Creatinine 1.0 Est GFR (CKD-EPI 2020) 61.36 Glucose 104 Calcium 8.1 L Magnesium 1.7 L Total Bilirubin 1.2 H AST 106 H ALT 79 H Alkaline Phosphatase 329 H Troponin I 182 H* NT-Pro-B Natriuret Pep Total Protein 5.7 L Albumin 2.3 L TSH Urine Color Yellow Urine Clarity Clear Urine pH 6.5 Ur Specific [place] 1.010 Urine Protein Negative Urine Ketones Negative Urine Blood Negative Urine Nitrite Negative Urine Bilirubin Negative Urine Urobilinogen 1.0 H Ur Leukocyte Esterase Negative Urine Glucose Negative Hepatitis A IgM Ab Hep Bs Antigen Hep B Core Total Ab Hepatitis C Antibody 03/30/23 03/30/23 03/30/23 23:57 23:57 21:06 WBC RBC Hgb Hct MCV MCH MCHC RDW Plt Count MPV Immature Gran % Neutrophils % Lymphocytes % Atypical Lymphs % Monocytes % Eosinophils % Basophils % Nucleated RBC % Absolute Neutrophils Absolute Lymphocytes Absolute Monocytes Absolute Eosinophils Absolute Basophils RBC Morphology PT INR D-Dimer > 7500 H Sodium Potassium Chloride Carbon Dioxide Anion Gap BUN Creatinine Est GFR (CKD-EPI 2020) Glucose Calcium Magnesium Total Bilirubin AST ALT Alkaline Phosphatase Troponin I 190 H* NT-Pro-B Natriuret Pep Total Protein Albumin TSH 2.29 Urine Color Urine Clarity Urine pH Ur Specific [place] Urine Protein Urine Ketones Urine Blood Urine Nitrite Urine Bilirubin Urine Urobilinogen Ur Leukocyte Esterase Urine Glucose Hepatitis A IgM Ab Hep Bs Antigen Hep B Core Total Ab Hepatitis C Antibody 03/30/23 03/30/23 03/30/23 20:47 20:47 20:47 WBC 4.98 RBC 3.57 L Hgb 11.0 L Hct 32.1 L MCV 90 MCH 30.8 MCHC 34.3 RDW 13.4 Plt Count 39 L MPV 12.3 H Immature Gran % 0.0 Neutrophils % 72.0 Lymphocytes % 20.0 Atypical Lymphs % 1 Monocytes % 7.0 Eosinophils % 0.0 Basophils % 0.0 Nucleated RBC % 0.0 Absolute Neutrophils 3.59 Absolute Lymphocytes 1.05 L Absolute Monocytes 0.35 Absolute Eosinophils 0.00 Absolute Basophils 0.00 RBC Morphology Normal PT INR D-Dimer Cancelled Sodium 138 Potassium 3.4 L Chloride 102 Carbon Dioxide 27.8 Anion Gap 8.2 BUN 19 H Creatinine 1.0 Est GFR (CKD-EPI 2020) 61.36 Glucose 100 Calcium 8.3 L Magnesium 1.8 Total Bilirubin 1.7 H AST 108 H ALT 80 H Alkaline Phosphatase 322 H Troponin I 113 H* NT-Pro-B Natriuret Pep 1787 H Total Protein 5.8 L Albumin 2.5 L TSH Urine Color Urine Clarity Urine pH Ur Specific [place] Urine Protein Urine Ketones Urine Blood Urine Nitrite Urine Bilirubin Urine Urobilinogen Ur Leukocyte Esterase Urine Glucose Hepatitis A IgM Ab Hep Bs Antigen Hep B Core Total Ab Hepatitis C Antibody PFSH All Active Problems (Updated 03/31/23 @ 12:40 by Jesica Spivey NP) Elevated liver function tests (Acute) Anemia (Chronic) Thrombocytopenia (Chronic) Elevated troponin level not due to acute coronary syndrome (Acute) CHF (congestive heart failure) (Acute) Atypical chest pain (Acute) Nausea (Acute) Occult blood positive stool (Acute) Iron deficiency anemia (Acute) Colon polyp (Acute ~08/21/21) Medical History Asthma Basal cell carcinoma (BCC) of chest Bilateral primary osteoarthritis of hip Chondrodermatitis nodularis helicis Cortical cataract of right eye (06/05/18) Elevated blood pressure reading Epistaxis (05/27/14) GERD (gastroesophageal reflux disease) Maltracking of right patella Myalgia 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/14) Osteoarthritis of left knee Osteoarthritis of right knee Posterior subcapsular age-related cataract, right eye (~06/05/18) Seborrheic keratoses Skin lesion of face Trochanteric bursitis of both hips (12/20/16) Surgical History Abdominal hysterectomy Cholecystectomy H/O cataract removal with insertion of prosthetic lens R H/O total hip arthroplasty B/L hips H/O total knee replacement R TKA History of colonoscopy with polypectomy (~08/21/21) History of total left knee replacement (12/31/20) Ligation of fallopian tube Social History Smoking/Tobacco Use Status: Never Smoking risk assessment performed?: Yes Alcohol Intake: current Alcohol Intake frequency: holidays/special occasions only Drug use: Never Substance use type: does not use Housing: house Current gender identity: female Do you feel safe at home: Yes Do you feel safe in your relationship?: Yes
[2023-03-31] MEDS: Pantoprazole 40 MG TABCR PO (16:55)
[2023-03-31] MEDS: Furosemide 40 MG TAB PO (16:55)
--- NOTE | 2023-03-31 17:03 | PGE_ITS ---
Date of Service Date of service: 03/31/23 Time of Service: 17:03 Assessment and Plan Assessment and plan (1) Atypical chest pain: Status: Acute Assessment and plan: troponins trending downward, no acute EKG changes echo pending consider cardiology follow-up outpatient (2) CHF (congestive heart failure): Status: Acute Assessment and plan: did respond to IV Lasix with improved breathing. BNP was elevated. Follow-up echocardiogram and cardiology evaluation. (3) Pneumonia: Status: Suspected Assessment and plan: Possible pneumonia on chest x-ray with new oxygen needs and asthmatic. Patient was placed on Rocephin and doxycycline in the ED. downstepped to levaquin. (4) Elevated troponin level not due to acute coronary syndrome: Status: Acute Assessment and plan: Minimal elevation of troponins the patient having heart strain with her pulmon laura process. Trended troponins improving and echocardiogram with cardiology evaluation eventually. (5) Asthma: Assessment and plan: Continue outpatient medical therapy with acute nebulizer treatment for increase bronchospasm with possible pneumonia. O2 supplementation weaning as possible. (6) Thrombocytopenia: Status: Chronic Assessment and plan: Patient appears to have a low platelet count on previous measurements. She states that she had elevated troponin levels in the past when she had iron deficiency anemia. This may be associated with liver disease with fatty liver and elevated LFTs. Follow-up lab and consider further evaluation for liver disease and also hematological processes with patient having two bone marrow cell lines decreased including hemoglobin and platelets at this time. WBC is normal. (7) Anemia: Status: Chronic Assessment and plan: History of iron deficiency anemia but now with low platelets as well as stated above, hematology evaluation may be appropriate. (8) Elevated liver function tests: Status: Acute Assessment and plan: Suggested fatty liver on imaging, patient will have hepatitis screen which appears to not have been done in the past. There may be associated thrombocytopenia but no elevation of the PT/INR. Follow-up clinically. ultrasound of the liver pending. discussed with DR Mendes Subjective Subjective Patient reports: no new complaints, feels better, voiding w/o difficulty and afebrile Interval history since last seen: reporting nausea and constipation. Exam Const General: cooperative, healthy appearing and no acute distress HENSD Head: normal to inspection Face and sinus: normal facial exam Eyes General: appearance normal, both eyes and all related structures EOM: EOM intact bilaterally Neck Neck: normal visual inspection Lymphatic: no lymphadenopathy noted Chest Chest: normal inspection of the chest and no tenderness Resp Effort & Inspection: normal respiratory effort and able to speak in complete sentences Auscultation: clear to auscultation bilaterally Cardio Rate: regular rate Rhythm: regular rhythm GI Inspection: normal to inspection Palpation: soft, not firm, not rigid and nontender Auscultation: normal bowel sounds Skin General skin exam: no rashes or lesions noted Neuro General: patient alert, patient awake and patient oriented x3 Cognition: normal cognition Speech: speech normal Extrem General: normal to inspection, full ROM, capillary refill normal, no calf tenderness bilaterally and no edema Psych Appearance: grossly normal Mental Status: mental status grossly normal Speech and Movement: speech and movement normal Affect: normal affect Objective Last Vital Signs Temp 37.7 C H 03/31/23 15:26 Pulse 64 03/31/23 15:26 Resp 18 03/31/23 15:26 BP 136/80 03/31/23 15:26 Pulse Ox 92 03/31/23 15:26 Laboratory Results - last 24 hr 03/30/23 03/30/23 03/30/23 20:47 20:47 20:47 WBC 4.98 RBC 3.57 L Hgb 11.0 L Hct 32.1 L MCV 90 MCH 30.8 MCHC 34.3 RDW 13.4 Plt Count 39 L MPV 12.3 H Immature Gran % 0.0 Neutrophils % 72.0 Lymphocytes % 20.0 Atypical Lymphs % 1 Monocytes % 7.0 Eosinophils % 0.0 Basophils % 0.0 Nucleated RBC % 0.0 Absolute Neutrophils 3.59 Absolute Lymphocytes 1.05 L Absolute Monocytes 0.35 Absolute Eosinophils 0.00 Absolute Basophils 0.00 RBC Morphology Normal PT INR D-Dimer Cancelled Sodium 138 Potassium 3.4 L Chloride 102 Carbon Dioxide 27.8 Anion Gap 8.2 BUN 19 H Creatinine 1.0 Est GFR (CKD-EPI 2020) 61.36 Glucose 100 Calcium 8.3 L Magnesium 1.8 Total Bilirubin 1.7 H AST 108 H ALT 80 H Alkaline Phosphatase 322 H Troponin I 113 H* NT-Pro-B Natriuret Pep 1787 H Total Protein 5.8 L Albumin 2.5 L TSH Urine Color Urine Clarity Urine pH Ur Specific [place] Urine Protein Urine Ketones Urine Blood Urine Nitrite Urine Bilirubin Urine Urobilinogen Ur Leukocyte Esterase Urine Glucose 03/30/23 03/30/23 03/30/23 21:06 23:57 23:57 WBC RBC Hgb Hct MCV MCH MCHC RDW Plt Count MPV Immature Gran % Neutrophils % Lymphocytes % Atypical Lymphs % Monocytes % Eosinophils % Basophils % Nucleated RBC % Absolute Neutrophils Absolute Lymphocytes Absolute Monocytes Absolute Eosinophils Absolute Basophils RBC Morphology PT INR D-Dimer > 7500 H Sodium Potassium Chloride Carbon Dioxide Anion Gap BUN Creatinine Est GFR (CKD-EPI 2020) Glucose Calcium Magnesium Total Bilirubin AST ALT Alkaline Phosphatase Troponin I 190 H* NT-Pro-B Natriuret Pep Total Protein Albumin TSH 2.29 Urine Color Urine Clarity Urine pH Ur Specific [place] Urine Protein Urine Ketones Urine Blood Urine Nitrite Urine Bilirubin Urine Urobilinogen Ur Leukocyte Esterase Urine Glucose 03/31/23 03/31/23 03/31/23 01:45 06:05 06:05 WBC 5.38 RBC 3.54 L Hgb 10.6 L Hct 31.8 L MCV 90 MCH 29.9 MCHC 33.3 RDW 13.6 Plt Count 33 L MPV 12.8 H Immature Gran % Neutrophils % Lymphocytes % Atypical Lymphs % Monocytes % Eosinophils % Basophils % Nucleated RBC % Absolute Neutrophils Absolute Lymphocytes Absolute Monocytes Absolute Eosinophils Absolute Basophils RBC Morphology PT INR D-Dimer Sodium 140 Potassium 3.5 Chloride 103 Carbon Dioxide 30.4 Anion Gap 6.6 BUN 18 Creatinine 1.0 Est GFR (CKD-EPI 2020) 61.36 Glucose 104 Calcium 8.1 L Magnesium 1.7 L Total Bilirubin 1.2 H AST 106 H ALT 79 H Alkaline Phosphatase 329 H Troponin I 182 H* NT-Pro-B Natriuret Pep Total Protein 5.7 L Albumin 2.3 L TSH Urine Color Yellow Urine Clarity Clear Urine pH 6.5 Ur Specific [place] 1.010 Urine Protein Negative Urine Ketones Negative Urine Blood Negative Urine Nitrite Negative Urine Bilirubin Negative Urine Urobilinogen 1.0 H Ur Leukocyte Esterase Negative Urine Glucose Negative 03/31/23 03/31/23 06:05 09:29 WBC RBC Hgb Hct MCV MCH MCHC RDW Plt Count MPV Immature Gran % Neutrophils % Lymphocytes % Atypical Lymphs % Monocytes % Eosinophils % Basophils % Nucleated RBC % Absolute Neutrophils Absolute Lymphocytes Absolute Monocytes Absolute Eosinophils Absolute Basophils RBC Morphology PT 9.6 INR 0.9 D-Dimer Sodium Potassium Chloride Carbon Dioxide Anion Gap BUN Creatinine Est GFR (CKD-EPI 2020) Glucose Calcium Magnesium Total Bilirubin AST ALT Alkaline Phosphatase Troponin I 144 H* NT-Pro-B Natriuret Pep Total Protein Albumin TSH Urine Color Urine Clarity Urine pH Ur Specific [place] Urine Protein Urine Ketones Urine Blood Urine Nitrite Urine Bilirubin Urine Urobilinogen Ur Leukocyte Esterase Urine Glucose Time Spent with Patient Time Spent with Patient: 25-34 minutes Time was spent: preparing to see the patient(eg.review tests), ordering medications,tests, procedures and counseling the patient
[2023-03-31] MEDS: Docusate Sodium 100 MG CAP PO (19:20)
[2023-03-31] MEDS: levoFLOXacin 500 MG, levoFLOXacin 250 MG 750 MG PO (19:33)
[2023-03-31] MEDS: Albuterol/Ipratropium 3 ML UPD VIAL UPD (19:33)
[2023-03-31 19:50] LABS: Procalcitonin 0.5 ng/mL
[2023-03-31] MEDS: Acetaminophen 325 MG TAB PO (20:46)
[2023-03-31] MEDS: Ondansetron O.D.T. 4 MG TABEF PO (21:38)
--- NOTE | 2023-04-01 | DI.US_ITS ---
Exam(s) US ABDOMEN LIMITED EXAM: US ABDOMEN LIMITED CLINICAL HISTORY: elevated LFT's TECHNIQUE: Ultrasound abdomen performed using standard protocol. COMPARISON: CT CT ABDOMEN PELVIS W from 03/30/[address] CHEST PE CTA from 03/30/2023 FINDINGS: PANCREAS: Normal where visualized. LIVER: There is fatty infiltration of the liver. Hepatopedal flow in the Portal Vein. The liver buck ures in 17.4 cm length. GALLBLADDER:Status post cholecystectomy. BILIARY SYSTEM: Common bile duct measures 9 mm. No intrahepatic biliary ductal dilation. RIGHT KIDNEY: Kidney is normal in size. No evidence of renal calculi. No evidence of hydronephrosis. No renal mass or cyst identified. ASCITES: None seen. IMPRESSION: 1. Hepatic steatosis. 2. Status post cholecystectomy. DATA REPOSITORY:
[2023-04-01 03:00] VITALS: BP 111/76; PULSE 56; RESP 16; TEMP 37.4; O2SAT 94
[2023-04-01 06:30] VITALS: BP 117/70; PULSE 56; RESP 16; TEMP 37.2; O2SAT 92
[2023-04-01 06:41] LABS: Abs Immature Grans 0.09 10^3/uL (0.0-0.06); Absolute Basophil Count 0.04 10^3/uL (0.0-0.2); Absolute Eosinophil Count 0.02 10^3/uL (0.0-0.7); Absolute Lymphocyte Count 3.82 10^3/uL (1.2-3.4); Absolute Monocyte Count 0.49 10^3/uL (0.1-0.8); Absolute Neutrophil Count 1.85 10^3/uL (1.2-6.7); Basophils % 0.6; Eosinophils % 0.3; HCT 31.2 % (36.0-46.0); HGB 10.5 g/dL (11.2-15.7); Immature Grans % 1.4; Lymphocytes % 60.5; MCH 29.8 pg (27.0-33.0); MCHC 33.7 % (32.0-36.0); MCV 89 fL (80-95); MPV 12.2 fL (8.0-11.0); Monocytes % 7.8; Neutrophils % 29.4; RBC 3.52 10^6/uL (3.93-5.22); RDW 13.8 % (11.7-14.6); WBC 6.31 10^3/uL (4.4-10.8)
[2023-04-01 06:50] LABS: Prothrombin Time 10.1 sec (9.3-11.0)
[2023-04-01 07:13] LABS: Platelet Count 56 10^3/uL (130-400)
[2023-04-01 07:17] LABS: ALT 87 U/L (14-59); AST 109 U/L (15-37); Albumin 2.3 g/dL (3.4-5.0); Alkaline Phosphatase 345 U/L (46-116); Anion Gap 7.2 mmol/L (3-11); BUN 18 mg/dL (7-18); Bilirubin, Total 0.7 mg/dL (0.2-1.0); CO2 28.8 mmol/L (21.0-32.0); CREATININE 0.9 mg/dL (0.55-1.02); Calcium 8.3 mg/dL (8.5-10.1); Chloride 103 mmol/L (98-107); Estimated GFR 69.64 (mL/min/1.73m2); Glucose 87 mg/dL (74-106); Potassium 3.7 mmol/L (3.5-5.1); Sodium 139 mmol/L (136-145); Total Protein 5.9 g/dL (6.4-8.2)
[2023-04-01 07:19] LABS: Diff Comment Agrees w/ Instrument; RBC Morphology Normal
[2023-04-01 07:28] VITALS: PULSE 51
[2023-04-01 08:00] VITALS: BP 117/70; RESP 18; O2SAT 92
[2023-04-01 08:30] LABS: Lab Add On Test DONE
[2023-04-01] MEDS: Omega-3 Fatty Acids 1000 MG CAP 2000 MG PO (09:05)
[2023-04-01] MEDS: levoFLOXacin 500 MG, levoFLOXacin 250 MG 750 MG PO (09:05)
[2023-04-01] MEDS: Ferrous Sulfate 325 MG TAB PO (09:05)
[2023-04-01] MEDS: Pantoprazole 40 MG TABCR PO (09:05)
[2023-04-01] MEDS: Loratidine 10 MG TAB PO (09:05)
[2023-04-01] MEDS: Montelukast 10 MG TAB PO (09:05)
[2023-04-01] MEDS: Magnesium Gluconate 500 MG TAB PO (09:05)
[2023-04-01] MEDS: Calcium Carbonate 1.25 GM TAB PO (09:06)
[2023-04-01] MEDS: Multivitamin TAB 1 TAB PO (09:06)
[2023-04-01] MEDS: Cholecalciferol (Vitamin D3) 1,000 UNIT TAB 1000 UNITS PO (09:06)
[2023-04-01 11:07] VITALS: BP 151/79; PULSE 50; TEMP 36.4; O2SAT 95
[2023-04-01 12:12] LABS: Hepatitis A Antibody IgM Negative (Negative); Hepatitis B Core Antibody Negative (Negative); Hepatitis B surface Ag Negative (Negative); Hepatitis C Ab w Rflx HCV PCR Negative (Negative)
--- NOTE | 2023-04-01 12:44 | DSE_ITS ---
Date of service: 04/01/23 Time of Service: 12:45 DS: Diagnosis Discharge Diagnosis (1) Gastroenteritis: Status: Resolved Asessment and Plan: resolved now, thought to be etiology for elevated LFT's and low platelets. patient had received one liter of NS in the ED and then re-admitted with hypoxia and SOB, she was diuresed with good effect. echo shows RVSP of 49. will need further outpatient cardiology and pulmonary referrals. (2) Atypical chest pain: Status: Acute Asessment and Plan: troponin peaked at 180, no acute st segment changes. (3) CHF (congestive heart failure): Status: Acute Asessment and Plan: diuresed with good effect. echo shows EF 60 to 65% cardiology referral. (4) Pneumonia: Status: Suspected Asessment and Plan: is being treated with levaquin 750 mg for 5 day course. respiratory status stable. (5) Elevated troponin level not due to acute coronary syndrome: Status: Acute Asessment and Plan: found to be in fluid overload and diuresed. no acute EKG changes. peak trop 180, trending downward, no chest pain. echo results: Conclusion Normal left ventricular wall thickness and chamber size.? Ejection fraction is 60 to 65%.? Wall motion is normal Normal right ventricular size and systolic function Both atria are normal in size There is no structural or hemodynamically significant valvular disease Estimated right ventricular systolic pressure is 49 mmHg outpatient cardiology referral per pcp (6) Asthma: Asessment and Plan: stable, continue home meds consider pulmonary referral outpatient, defer to pcp (7) Thrombocytopenia: Status: Chronic Asessment and Plan: suspect d/t viral illness. recovering now, low of 30, up to 54 on discharge no active bleeding. (8) Anemia: Status: Chronic Asessment and Plan: stable, no transfusion required further outpatient follow up with pcp (9) Elevated liver function tests: Status: Acute Asessment and Plan: hepatitis panel negative total bilirubin down from 1.8 to 0.7 suspect viral illness abd ultrasound FINDINGS: PANCREAS: Normal where visualized. LIVER: There is fatty infiltration of the liver.? Hepatopedal flow in the Portal Vein. The liver measures in 17.4 cm length. GALLBLADDER:Status post cholecystectomy. BILIARY SYSTEM: Common bile duct measures 9 mm.? No intrahepatic biliary ductal dilation. RIGHT KIDNEY: Kidney is normal in size.? No evidence of renal calculi. No evidence of hydronephrosis. No renal mass or cyst identified. ASCITES: None seen. IMPRESSION: 1. Hepatic steatosis. 2. Status post cholecystectomy.? Discharge Plan Disposition Patient Disposition: Home Condition: Stable Discharge Details Reason For Visit: Atypical Chest Pain, CHF, Thrombocytopenia, Anemia Admit Date/Time: 03/31/23 00:06 Admit Provider: Huey Watkins Attending Provider: Huey Watkins Primary Care Provider: Jemma Chavez Home Meds and New Rx's Prescriptions: New levofloxacin 750 mg tablet 750 mg PO DAILY Qty: 3 0RF Continued magnesium 250 mg tablet 500 mg PO DAILY omega-3 fatty acids 1,000 mg capsule 2,000 mg PO BID cholecalciferol (vitamin D3) 25 mcg (1,000 unit) capsule 25 mcg PO DAILY montelukast 10 mg tablet 10 mg PO DAILY multivitamin Tablet 1 tab PO DAILY omeprazole 20 mg capsule,delayed release(DR/EC) 20 mg PO Q OTHER DAY vitamin B complex Tablet 1 tab PO DAILY Patient Comments: pt unsure of dose loratadine 10 mg Tablet 10 mg PO DAILY ibuprofen 200 mg Capsule 200 mg PO PRN PRN calcium carbonate [Calcium 500] 500 mg calcium (1,250 mg) Tablet 500 mg PO DAILY ferrous sulfate [iron] 325 mg (65 mg iron) Tablet 325 mg PO BID triamcinolone acetonide [Nasacort] 55 mcg Aerosol,[place] 2 spray INTRANASAL DAILY PRN Changed albuterol sulfate [ProAir HFA] 90 mcg/actuation Hfa Aerosol Inhaler 2 puff INHALATION Q4-5H PRN (Reason: shortness of breath) Qty: 0 0RF fluticasone propion-salmeterol [Advair HFA] 12 GM HFA aerosol inhaler 2 puff Inhalation DAILY Qty: 0 0RF Discharge Instructions Instructions: Gastroenteritis (DC), Non-Alcoholic Fatty Liver Disease (DC), Thrombocytopenia (DC), Pneumonia (DC) Stand Alone Forms: Nursing Discharge Form Referrals: Lisette Benson MD [ [facility] STAFF PHYSICIAN] - (Please call Tuesday to make a follow up appointment.) Susanna Zavala MD [ [facility] STAFF PHYSICIAN] - (Please all Tuesday to make a follow up appointment. ) Jemma Chavez [Primary Care Provider] - (Please call Tuesday to make a follow up appointment for 1-2 weeks.) Activity:: Activity as Tolerated Equipment/Supplies:: No Equipment Needed Diet:: As Tolerated Discharge Orders Discharge Orders: Discharge Order (Routine); Ordered 04/01/23 Ordered By: Jesica Spivey Discharge Data Discharge Date/Time-TO BE ENTERED AT DEPARTURE: 04/01/23 14:07 DS: Summary Time Spent with Patient providing and/or coordinating discharge services: Less than 30 minutes Status at Discharge Functional status at discharge: independent ambulation Overall status at discharge: patient is back to baseline Mental Status: mental status grossly normal Speech and Movement: speech and movement normal Mood: congruent mood Affect: normal affect Exam Const General: cooperative, healthy appearing and no acute distress HENMT Head: normal to inspection Face and sinus: normal facial exam Eyes General: appearance normal, both eyes and all related structures EOM: EOM intact bilaterally Neck Neck: normal visual inspection Lymphatic: no lymphadenopathy noted Chest Chest: normal inspection of the chest and no tenderness Resp Effort & Inspection: normal respiratory effort and able to speak in complete sentences Auscultation: clear to auscultation bilaterally Cardio Rate: regular rate Rhythm: regular rhythm GI Inspection: normal to inspection Palpation: soft, not firm, not rigid and nontender Auscultation: normal bowel sounds Skin General skin exam: no rashes or lesions noted Neuro General: patient alert, patient awake and patient oriented x3 Cognition: normal cognition Speech: speech normal Extrem General: normal to inspection, full ROM, capillary refill normal, no calf tenderness bilaterally and no edema Psych Appearance: grossly normal Mental Status: mental status grossly normal Speech and Movement: speech and movement normal Mood: congruent mood Affect: normal affect DS: Data Vitals/I&O Vitals and I&O: Vital Signs Temperature 36.4 C L 04/01/23 11:07 Temperature Source Tympanic 04/01/23 11:07 Pulse 50 L 04/01/23 11:07 Pulse Rhythm Regular 04/01/23 08:00 Respiratory Rate 18 04/01/23 08:00 Respiratory Effort Normal, Non-Labored 04/01/23 08:00 Respiratory Depth Normal 04/01/23 08:00 Respiratory Pattern Normal 04/01/23 08:00 Blood Pressure 151/79 H 04/01/23 11:07 Pulse Oximetry 95 04/01/23 11:07 Oxygen Delivery Method Nasal Cannula 04/01/23 11:07 Oxygen Flow Rate 0.5 04/01/23 11:07 Pain Level 0 04/01/23 11:07 Comment RN notified 04/01/23 03:00 Intake & Output 03/31/23 04/01/23 04/01/23 23:59 11:59 23:59 Intake Total Output Total 1450 / 3300 1400 / 1400 Balance -1450 / -2890 -1390 / -1390 Weight 168.2 kg Intake: IV Output: Urine 1450 / 3300 1400 / 1400 Other: Urine Color Yellow Yellow Urine Appearance Clear Cloudy Sediment Urine Odor Normal Normal Stool Size Small Stool Characteristics Formed Hard Voiding Methods Toilet Toilet Data Completed and Pending Labs on day of discharge: Labs from last 24 hours 04/01/23 04/01/23 04/01/23 06:28 06:28 06:28 WBC 6.31 RBC 3.52 L Hgb 10.5 L Hct 31.2 L MCV 89 MCH 29.8 MCHC 33.7 RDW 13.8 Plt Count 56 L D MPV 12.2 H Immature Gran % 1.4 Neutrophils % 29.4 Lymphocytes % 60.5 Monocytes % 7.8 Eosinophils % 0.3 Basophils % 0.6 Nucleated RBC % 0.0 Absolute Neutrophils 1.85 Absolute Lymphocytes 3.82 H Absolute Monocytes 0.49 Absolute Eosinophils 0.02 Absolute Basophils 0.04 RBC Morphology Normal PT 10.1 INR 1.0 Sodium 139 Potassium 3.7 Chloride 103 Carbon Dioxide 28.8 Anion Gap 7.2 BUN 18 Creatinine 0.9 Est GFR (CKD-EPI 2020) 69.64 Glucose 87 Calcium 8.3 L Total Bilirubin 0.7 AST 109 H ALT 87 H Alkaline Phosphatase 345 H Total Protein 5.9 L Albumin 2.3 L Procalcitonin Hepatitis A IgM Ab Hep Bs Antigen Hep B Core Total Ab Hepatitis C Antibody Add-On Test Request 03/31/23 03/31/23 03/31/23 09:29 09:29 06:05 WBC RBC Hgb Hct MCV MCH MCHC RDW Plt Count MPV Immature Gran % Neutrophils % Lymphocytes % Monocytes % Eosinophils % Basophils % Nucleated RBC % Absolute Neutrophils Absolute Lymphocytes Absolute Monocytes Absolute Eosinophils Absolute Basophils RBC Morphology PT INR Sodium Potassium Chloride Carbon Dioxide Anion Gap BUN Creatinine Est GFR (CKD-EPI 2020) Glucose Calcium Total Bilirubin AST ALT Alkaline Phosphatase Total Protein Albumin Procalcitonin 0.5 Hepatitis A IgM Ab Negative Hep Bs Antigen Negative Hep B Core Total Ab Negative Hepatitis C Antibody Negative Add-On Test Request DONE [facility] All Active Problems (Updated 04/01/23 @ 12:57 by Jesica Spivey NP) Elevated liver function tests (Acute) Anemia (Chronic) Thrombocytopenia (Chronic) Elevated troponin level not due to acute coronary syndrome (Acute) CHF (congestive heart failure) (Acute) Atypical chest pain (Acute) Nausea (Acute) Occult blood positive stool (Acute) Iron deficiency anemia (Acute) Colon polyp (Acute ~08/21/21) Medical History Asthma Basal cell carcinoma (BCC) of chest Bilateral primary osteoarthritis of hip Chondrodermatitis nodularis helicis Cortical cataract of right eye (06/05/18) Elevated blood pressure reading Epistaxis (05/27/14) GERD (gastroesophageal reflux disease) Maltracking of right patella Myalgia 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/14) Osteoarthritis of left knee Osteoarthritis of right knee Posterior subcapsular age-related cataract, right eye (~06/05/18) Seborrheic keratoses Skin lesion of face Trochanteric bursitis of both hips (12/20/16) Surgical History Abdominal hysterectomy Cholecystectomy H/O cataract removal with insertion of prosthetic lens R H/O total hip arthroplasty B/L hips H/O total knee replacement R TKA History of colonoscopy with polypectomy (~08/21/21) History of total left knee replacement (12/31/20) Ligation of fallopian tube Social History Smoking/Tobacco Use Status: Never Smoking risk assessment performed?: Yes Alcohol Intake: current Alcohol Intake frequency: holidays/special occasions only Drug use: Never Substance use type: does not use Housing: house Current gender identity: female Do you feel safe at home: Yes Do you feel safe in your relationship?: Yes Time Spent with Patient Time Spent with Patient: <45 minutes Time was spent: preparing to see the patient(eg.review tests), ordering me dications,tests, procedures and counseling the patient
--- NOTE | 2023-04-01 13:05 | PDOC.CMDIS ---
Date of service: 04/01/23 Time of Service: 13:05 LACE Index Scoring Tool Questions: Length of Stay (in days): 1 Was the patient admitted via the E.D.?: Yes Comorbidities: Congestive Heart Failure E.D. Visits: 1 Answers: Total Score: 7 Risk of Readmission: Low Risk Care Management Discharge Plan Reason for Hospitalization: Atypical chest pain, CHF, pneumonia Discharge Plan: Lupe will return home today with no new services. Her will drive her home via private vehicle. She stated that our pharmacy is holding her inhalers, which CM informed the CC of, in order for her to receive them back prior to her discharge. She will follow up with her PCP and discharge plan of care. She is happy to be going home. Patient/Family Education Needs: Review discharge instructions, discussion of self care needs including ask me three.
[2023-04-01 13:15] VITALS: PULSE 60
== END 2023-04-01 14:07 | disposition home or self-care (01) | DRG 291 ==
LOC: ER 03-31 01:15 → MS 03-31 01:24
PROVIDERS: Nurse Practitioner Acute Care; Admitting Provider Family Medicine; Emergency Provider Student in an Organized Health Care Education/Training Program; PCP Nurse Practitioner Family; Visit Provider Family Medicine
DX: I50.9 Heart failure, unspecified (principal); J18.9 Pneumonia, unspecified organism; Z68.45 Body mass index [BMI] 70 or greater, adult; R07.89 Other chest pain; R74.8 Abnormal levels of other serum enzymes; J45.909 Unspecified asthma, uncomplicated; D69.6 Thrombocytopenia, unspecified; R79.89 Other specified abnormal findings of blood chemistry; R11.2 Nausea with vomiting, unspecified; R14.0 Abdominal distension (gaseous); R09.02 Hypoxemia; D50.9 Iron deficiency anemia, unspecified; K75.81 Nonalcoholic steatohepatitis (NASH); M16.0 Bilateral primary osteoarthritis of hip; K21.9 Gastro-esophageal reflux disease without esophagitis; M17.0 Bilateral primary osteoarthritis of knee; M70.62 Trochanteric bursitis, left hip; M70.61 Trochanteric bursitis, right hip; H61.009 Unspecified perichondritis of external ear, unspecified ear; E66.9 Obesity, unspecified; K52.9 Noninfective gastroenteritis and colitis, unspecified
CPT/HCPCS: 36415; 71275; 80053; 84145; 85027; 86704; 86709; 86803; 87340; 93005; 99285; 71046; 74177; 76705; 81003; 83735; 83880; 84443; 84484; 85025; 85379; 85610; 93010; 93306; 99223; 99233; 99238; J0696; J1940; J3490; J7620

== ENCOUNTER 2023-04-07 17:51 | Outpatient (REF) | payer MEDICARE, BC, SELFPAY ==
[2023-04-07 15:56] LABS: Abs Immature Grans 0.16 10^3/uL (0.0-0.06); Absolute Basophil Count 0.05 10^3/uL (0.0-0.2); Absolute Eosinophil Count 0.06 10^3/uL (0.0-0.7); Absolute Lymphocyte Count 1.89 10^3/uL (1.2-3.4); Absolute Monocyte Count 0.87 10^3/uL (0.1-0.8); Absolute Neutrophil Count 4.89 10^3/uL (1.2-6.7); Basophils % 0.6; Eosinophils % 0.8; HCT 39.9 % (36.0-46.0); HGB 12.9 g/dL (11.2-15.7); Lymphocytes % 23.9; MCH 30.4 pg (27.0-33.0); MCHC 32.3 % (32.0-36.0); MCV 94 fL (80-95); MPV 9.8 fL (8.0-11.0); Neutrophils % 61.7; RBC 4.25 10^6/uL (3.93-5.22); RDW-SD 50.4 fL; WBC 7.92 10^3/uL (4.4-10.8)
[2023-04-07 16:37] LABS: ALT 36 U/L (14-59); AST 24 U/L (15-37); Albumin 3.5 g/dL (3.4-5.0); Alkaline Phosphatase 187 U/L (46-116); BUN 19 mg/dL (7-18); Bilirubin, Total 0.6 mg/dL (0.2-1.0); CREATININE 0.9 mg/dL (0.55-1.02); Calcium 9.7 mg/dL (8.5-10.1); Calculated LDL 112 mg/dL (<100); Chloride 103 mmol/L (98-107); Cholesterol 180 mg/dL (<200); Diff Comment PLT Morph Reviewed; Estimated GFR 69.64 (mL/min/1.73m2); Glucose 116 mg/dL (74-106); HDL Cholesterol 48 mg/dL (40-60); Sodium 138 mmol/L (136-145); Total Protein 7.5 g/dL (6.4-8.2); Triglyceride 104 mg/dL (<150)
[2023-04-07 16:42] LABS: Iron 112 ug/dL (50-170); Total Iron Binding Capacity 351 ug/dL (250-450); Transferrin Sat 32 % (15-50)
[2023-04-08 08:43] LABS: Platelet Count 894 10^3/uL (130-400)
== END 2023-04-07 17:52 | disposition home or self-care (01) ==
LOC: NCHCN 17:51
PROVIDERS: PCP Nurse Practitioner Family; Visit Provider Nurse Practitioner Family
DX: E78.5 Hyperlipidemia, unspecified (principal); R74.8 Abnormal levels of other serum enzymes; D64.9 Anemia, unspecified
CPT/HCPCS: 80053; 80061; 83540; 83550; 85025

== ENCOUNTER 2023-04-11 01:33 | Outpatient (CLI) | payer MEDICARE, BC, SELFPAY ==
--- NOTE | 2023-04-11 | DI.MAMMO_ITS ---
Exam(s) MAMMO SCREENING EXAM: MAMMO SCREENING CLINICAL HISTORY: SCREENING MAMMO FOR BREAST CANCER Z12.31 TECHNIQUE: Mammograms were interpreted according to the usual protocol including computer analysis w [employer] CAD system, tomosynthesis and C-view imaging. COMPARISON: 2012 through 2021 FINDINGS: The breasts are composed of scattered fibroglandular densities, Breast Density category B. No suspicious masses or suspicious microcalcifications are seen. No skin thickening or abnormal axillary lymph nodes are seen. There has been no significant change from prior exams. IMPRESSION: BI-RADS Category 1, Negative mammogram Yearly screening mammography is recommended. Breast Density - Category B, scattered fibroglandular densities. A negative radiographic report should not delay biopsy if a dominant or clinically suspicious mass is present. Up to ten percent of cancers are not identified on mammography. A negative report may reinforce clinical impression. Adenosis and dense breasts may obscure an underlying neoplasm. False positive reports average 6 to 10%. Patient will receive a letter notifying them of these results.
== END 2023-04-11 01:53 ==
LOC: DI 01:33
PROVIDERS: PCP Nurse Practitioner Family; Visit Provider Nurse Practitioner Family
DX: Z12.31 Encounter for screening mammogram for malignant neoplasm of breast (principal)
CPT/HCPCS: 77063; 77067

== ENCOUNTER 2023-05-12 10:34 | Outpatient (REF) | payer MEDICARE, BC, SELFPAY ==
[2023-05-12 14:39] LABS: HCT 38.5 % (36.0-46.0); HGB 12.6 g/dL (11.2-15.7); MCH 30.4 pg (27.0-33.0); MCHC 32.7 % (32.0-36.0); MCV 93 fL (80-95); MPV 9.7 fL (8.0-11.0); Platelet Count 355 10^3/uL (130-400); RBC 4.15 10^6/uL (3.93-5.22); RDW 13.7 % (11.7-14.6); RDW-SD 46.6 fL; WBC 5.54 10^3/uL (4.4-10.8)
[2023-05-12 14:51] LABS: Iron 115 ug/dL (50-170)
== END 2023-05-12 10:35 | disposition home or self-care (01) ==
LOC: NCHCN 10:34
PROVIDERS: PCP Nurse Practitioner Family; Visit Provider Nurse Practitioner Family
DX: D64.9 Anemia, unspecified (principal)
CPT/HCPCS: 85027; 83540

== ENCOUNTER 2023-06-20 12:55 | Outpatient (CLI) | payer MEDICARE, BC, SELFPAY ==
--- NOTE | 2023-06-20 11:30 | DI.RAD_ITS ---
Exam(s) XR KNEE LT 3V AP,LAT,MAMADOU EXAM: XR KNEE LT 3V AP,LAT,MAMADOU CLINICAL HISTORY: LEFT KNEE PAIN. TECHNIQUE: 2D digital imaging was performed. Three images were obtained. AP, lateral and PA tunnel views were obtained. COMPARISON: CR XR KNEE LT 2V AP,LAT from 01/10/2023 FINDINGS: BONES: There are stable post operative changes of a left total knee replacement present. No fracture or dislocation. JOINTS: The orthopedic hardware is in good position. No evidence of hardware loosening. SOFT TISSUE: Normal. IMPRESSION: Stable postoperative changes. DATA REPOSITORY: RADIATION DOSE DELIVERED:
--- NOTE | 2023-06-20 11:30 | DI.RAD_ITS ---
Exam(s) XR KNEE RT 2V AP,LAT EXAM: XR KNEE RT 2V AP,LAT CLINICAL HISTORY: RIGHT KNEE PAIN. TECHNIQUE: 2D digital imaging was performed. Two images were obtained. AP and lateral views were ob tained. COMPARISON: CR XR STANDING ALIGNMENT from 01/14/2021 FINDINGS: BONES: There are stable post operative changes of a right total knee replacement present. No fractur e or dislocation. JOINTS: The orthopedic hardware is in good position. No evidence of hardware loosening. SOFT TISSUE: Normal. IMPRESSION: Stable postoperative changes. DATA REPOSITORY: RADIATION DOSE DELIVERED:
== END 2023-06-20 12:56 | disposition home or self-care (01) ==
LOC: DIORS 12:55
PROVIDERS: PCP Nurse Practitioner Family; Referring Provider Nurse Practitioner Family; Visit Provider Student in an Organized Health Care Education/Training Program
DX: Z96.652 Presence of left artificial knee joint (principal); M70.52 Other bursitis of knee, left knee; Z96.651 Presence of right artificial knee joint; Z96.643 Presence of artificial hip joint, bilateral
CPT/HCPCS: 73562; 99213; 73560

== ENCOUNTER 2023-09-09 15:11 | Outpatient (REF) | payer MEDICARE, BC, SELFPAY ==
[2023-09-09 15:40] LABS: Bacteria Few HPF (Negative); C & S Indicated? C&S Done As Ordered; Crystals Negative HPF (Negative); Epithelial Cells Rare HPF (Negative); Mucus Trace (Negative); Other Cells Rare Transitional (Negative); RBC 20-50 HPF (0-2); WBC >50 HPF (0-5)
== END 2023-09-09 15:12 | disposition home or self-care (01) ==
LOC: LBN 15:11
PROVIDERS: PCP Nurse Practitioner Family; Visit Provider Physician Assistant Medical
DX: R30.0 Dysuria (principal); R82.998 Other abnormal findings in urine
CPT/HCPCS: 87077; 81015; 87086; 87186

== ENCOUNTER 2023-10-20 11:24 | Outpatient (REF) | payer MEDICARE, BC, SELFPAY ==
[2023-10-20 14:56] LABS: Abs Immature Grans 0.01 10^3/uL (0.0-0.06); Absolute Basophil Count 0.06 10^3/uL (0.0-0.2); Absolute Neutrophil Count 4.69 10^3/uL (1.2-6.7); Basophils % 0.8; Eosinophils % 1.4; HCT 41.5 % (36.0-46.0); HGB 13.7 g/dL (11.2-15.7); Immature Grans % 0.1; Lymphocytes % 24.1; MCH 30.6 pg (27.0-33.0); MCV 93 fL (80-95); Monocytes % 7.1; Neutrophils % 66.5; Platelet Count 340 10^3/uL (130-400); RBC 4.48 10^6/uL (3.93-5.22); WBC 7.06 10^3/uL (4.4-10.8)
== END 2023-10-20 11:25 | disposition home or self-care (01) ==
LOC: NCHCN 11:24
PROVIDERS: PCP Nurse Practitioner Family; Referring Provider Nurse Practitioner Family; Visit Provider Nurse Practitioner Family
DX: D75.839 Thrombocytosis, unspecified (principal)
CPT/HCPCS: 85025

== ENCOUNTER 2023-10-24 17:48 | Outpatient (REF) | payer MEDICARE, BC, SELFPAY | END 2023-10-24 17:49 | disposition home or self-care (01) | LOC: LBN 17:48 | PROVIDERS: PCP Nurse Practitioner Family; Visit Provider Nurse Practitioner Family | DX: N30.01 Acute cystitis with hematuria (principal) | CPT/HCPCS: 87077; 87086; 87186 ==

== ENCOUNTER → 2023-12-19 10:55 | Outpatient (BNVA) | payer MEDICARE, BC, SELFPAY | PROVIDERS: PCP Nurse Practitioner Family; Referring Provider Nurse Practitioner Family; Visit Provider Student in an Organized Health Care Education/Training Program | DX: Z47.1 Aftercare following joint replacement surgery (principal); Z96.653 Presence of artificial knee joint, bilateral; M70.52 Other bursitis of knee, left knee | CPT/HCPCS: 99213 ==

== ENCOUNTER → 2023-12-30 13:57 | Outpatient (BNVA) | payer MEDICARE, BC, SELFPAY | PROVIDERS: PCP Nurse Practitioner Family; Referring Provider Nurse Practitioner Family; Visit Provider Student in an Organized Health Care Education/Training Program | DX: J45.909 Unspecified asthma, uncomplicated (principal) | CPT/HCPCS: 99214 ==

== ENCOUNTER 2024-04-04 14:59 | Outpatient (REF) | payer MEDICARE, BC, SELFPAY ==
[2024-04-04 14:27] LABS: Bacteria Moderate HPF (Negative); C & S Indicated? C&S Done As Ordered; Crystals Negative HPF (Negative); Epithelial Cells Rare HPF (Negative); Mucus Negative (Negative); Other Cells Rare Transitional (Negative); WBC >50 HPF (0-5)
== END 2024-04-04 15:00 | disposition home or self-care (01) ==
LOC: NCHCN 14:59
PROVIDERS: PCP Nurse Practitioner Family; Visit Provider Physician Assistant Medical
DX: N39.0 Urinary tract infection, site not specified (principal)
CPT/HCPCS: 87077; 81015; 87086; 87186

== ENCOUNTER 2024-04-16 02:36 | Outpatient (CLI) | payer MEDICARE, BC, SELFPAY ==
--- NOTE | 2024-04-16 07:55 | DI.MAMMO_ITS ---
Exam(s) MAMMO SCREENING EXAM: MAMMO SCREENING CLINICAL HISTORY: SCREENING, Z12.31 TECHNIQUE: Bilateral full field digital CC and MLO mammographic images were obtained with 3D tomosyn thesis and utilizing computer aided detection (CAD). COMPARISON: Available for comparison. FINDINGS: Masses/Architectural Distortion: None seen. Microcalcifications: No suspicious pleomorphic-type are seen. Skin Thickening/Nipple Retraction: None. IMPRESSION: 1. No significant interval change with no specific features of malignancy noted. 2. Unless there is more urgent need, screening mammography is recommended, as per [employer] guidelines. BI-RADS Category 1 - Negative Breast Density - Category B - Scattered areas of fibroglandular density Breast density category C or D implies that the patient has dense breast tissue. Dense breast tissue is very common and is not abnormal but dense breast tissue can make it harder to find cancer on a ma mmogram. Also, dense breast tissue may increase their breast cancer risk. This information about the result of the mammogram report was provided to the patient to raise their awareness. Use this report when you speak with the patient about their risks for breast cancer, which includes their family hist ory. At that time, you may recommend for more screening tests (Ultrasound or MRI) as they might be us eful based on their risk. A negative radiographic report should not delay biopsy if a dominant or clinically suspicious mass is present. Up to ten percent of cancers are not identified on mammography. A negative report may reinforce clinical impression. Adenosis and dense breasts may obscure an underlying neoplasm. False positive reports average 6 to 10%. Patient will receive a letter notifying them of these results.
== END 2024-04-16 02:56 ==
LOC: DI 02:36
PROVIDERS: PCP Nurse Practitioner Family; Visit Provider Nurse Practitioner Family
DX: Z12.31 Encounter for screening mammogram for malignant neoplasm of breast (principal)
CPT/HCPCS: 77063; 77067

== ENCOUNTER 2024-04-18 09:36 | Outpatient (REF) | payer MEDICARE, BC, SELFPAY ==
[2024-04-18 14:58] LABS: Abs Immature Grans 0.03 10^3/uL (0.0-0.06); Absolute Eosinophil Count 0.22 10^3/uL (0.0-0.7); Absolute Lymphocyte Count 1.45 10^3/uL (1.2-3.4); Absolute Monocyte Count 0.51 10^3/uL (0.1-0.8); Absolute Neutrophil Count 4.43 10^3/uL (1.2-6.7); Basophils % 1.5 %; Eosinophils % 3.3 %; HCT 41.6 % (36.0-46.0); HGB 13.5 g/dL (11.2-15.7); Immature Grans % 0.4 %; Lymphocytes % 21.5 %; MCH 31.5 pg (27.0-33.0); MCHC 32.5 % (32.0-36.0); MCV 97 fL (80-95); MPV 9.8 fL (8.0-11.0); Monocytes % 7.6 %; Neutrophils % 65.7 %; Platelet Count 392 10^3/uL (130-400); RBC 4.28 10^6/uL (3.93-5.22); RDW 12.6 % (11.7-14.6); WBC 6.74 10^3/uL (4.4-10.8)
[2024-04-18 15:29] LABS: Iron 100 ug/dL (50-170); Total Iron Binding Capacity 289 ug/dL (250-450); Transferrin Sat 35 % (15-50)
[2024-04-18 16:53] LABS: ALT 30 U/L (14-59); AST 19 U/L (15-37); Albumin 3.8 g/dL (3.4-5.0); Alkaline Phosphatase 71 U/L (46-116); Anion Gap 11.6 mmol/L (3-11); BUN 18 mg/dL (7-18); CO2 25.4 mmol/L (21.0-32.0); CREATININE 0.9 mg/dL (0.55-1.02); Chloride 106 mmol/L (98-107); Ferritin 92 ng/mL (8-252); Glucose 102 mg/dL (74-106); Potassium 4.8 mmol/L (3.5-5.1); Sodium 143 mmol/L (136-145)
== END 2024-04-18 09:37 | disposition home or self-care (01) ==
LOC: NCHCN 09:36
PROVIDERS: PCP Nurse Practitioner Family; Visit Provider Nurse Practitioner Family
DX: D64.9 Anemia, unspecified (principal)
CPT/HCPCS: 80053; 82728; 83540; 83550; 85025

== ENCOUNTER 2024-05-10 02:42 | Outpatient (CLI) | payer MEDICARE, BC, SELFPAY ==
--- NOTE | 2024-05-10 | DI.DEXA_ITS ---
Exam(s) XR DEXA BONE DENSITY W/WO REGINA EXAM: XR DEXA BONE DENSITY W/WO REGINA CLINICAL HISTORY: MENOPAUSAL STATE Z78.0 TECHNIQUE: COMPARISON: CR XR DEXA BONE DENSITY W/WO REGINA from 10/02/2020 FINDINGS: Lateral Spine Image: Unremarkable. No compression deformities identified. Left forearm: Total T-Score: -0.3. This compares to 0.3 on the prior examination. Total Z-Score: 1.7 T- and Z-scores: No evidence of osteoporosis. Lumbar Spine: Total T-Score: 0.5. This compares to 0.4 on the prior examination. Total Z-Score: 2.6 T- and Z-scores: No evidence of osteoporosis. IMPRESSION: No evidence of osteoporosis.
--- NOTE | 2024-05-10 | DI.MRI_ITS ---
Exam(s) MR ABDOMEN WO EXAM: MR ABDOMEN WO CLINICAL HISTORY: FAM HX NEOPLASM PANCREAS Z80.0 TECHNIQUE: Multiplanar multisequence MRI of the Abdomen was performed. COMPARISON: CT CT ABDOMEN PELVIS W from 03/30/2023 FINDINGS: Lung bases: There is a large hiatal hernia again seen. Liver: Unremarkable. No suspicious hepatic mass. Pancreas: There is no evidence of a pancreatic mass. Pancreatic duct is within normal limits. No pe ripancreatic fluid collection is identified. Gallbladder and Bile Ducts: Status post cholecystectomy. No biliary ductal dilatation. Adrenals: No evidence of an adrenal mass. Kidneys: No evidence of a renal mass. 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 Spleen: Unremarkable. Bowel: No evidence of bowel obstruction or bowel wall thickening. Aorta: The aorta is of normal caliber. Soft Tissues: Unremarkable. Bone: There is a right convex lumbar scoliosis. There is significant central spinal canal stenosis a t L3-L4. Lymph Nodes: Unremarkable. IMPRESSION: 1. There is no evidence of a pancreatic mass. 2. Status post cholecystectomy. No biliary ductal dilatation. 3. Degenerative changes in the lumbar spine with significant central spinal canal stenosis at L3-L4. Follow-up as clinically appropriate. Unexpected findings DATA REPOSITORY:
== END 2024-05-10 03:02 ==
LOC: DI 02:42
PROVIDERS: PCP Nurse Practitioner Family; Visit Provider Nurse Practitioner Family
DX: Z78.0 Asymptomatic menopausal state (principal); Z13.820 Encounter for screening for osteoporosis; M51.36 Other intervertebral disc degeneration, lumbar region; Z80.0 Family history of malignant neoplasm of digestive organs
CPT/HCPCS: 77080; 74181

== ENCOUNTER 2024-10-19 09:56 | Outpatient (REF) | payer MEDICARE, BC, SELFPAY ==
[2024-10-19 14:38] LABS: Abs Immature Grans 0.02 10^3/uL (0.0-0.06); Absolute Basophil Count 0.07 10^3/uL (0.0-0.2); Absolute Eosinophil Count 0.27 10^3/uL (0.0-0.7); Absolute Neutrophil Count 3.76 10^3/uL (1.2-6.7); Basophils % 1.2 %; Eosinophils % 4.5 %; HCT 42.3 % (36.0-46.0); HGB 13.9 g/dL (11.2-15.7); Immature Grans % 0.3 %; Lymphocytes % 23.3 %; MCH 30.9 pg (27.0-33.0); MCHC 32.9 % (32.0-36.0); MCV 94 fL (80-95); Monocytes % 8.3 %; Neutrophils % 62.4 %; Platelet Count 324 10^3/uL (130-400); RDW 13.1 % (11.7-14.6); RDW-SD 44.5 fL; WBC 6.02 10^3/uL (4.4-10.8)
[2024-10-19 14:58] LABS: Hemoglobin A1C 5.9 % (<5.7)
[2024-10-19 15:05] LABS: Iron 65 ug/dL (50-170); Total Iron Binding Capacity 301 ug/dL (250-450); Transferrin Sat 22 % (15-50)
[2024-10-19 15:18] LABS: ALT 25 U/L (14-59); AST 16 U/L (15-37); Albumin 3.8 g/dL (3.4-5.0); Alkaline Phosphatase 64 U/L (46-116); Anion Gap 5.8 mmol/L (3-11); BUN 17 mg/dL (7-18); Bilirubin, Total 0.58 mg/dL (0.2-1.0); CO2 30.2 mmol/L (21.0-32.0); CREATININE 0.9 mg/dL (0.55-1.02); Calcium 9.8 mg/dL (8.5-10.1); Calculated LDL 124 mg/dL (<100); Chloride 105 mmol/L (98-107); Cholesterol 207 mg/dL (<200); Estimated GFR 68.77 (mL/min/1.73m2); Ferritin 85 ng/mL (8-252); Glucose 93 mg/dL (74-106); HDL Cholesterol 73 mg/dL (40-60); Potassium 4.9 mmol/L (3.5-5.1); Sodium 141 mmol/L (136-145); TSH (W/Ref FT4) 2.67 uIU/mL (0.36-3.74); Total Protein 7.2 g/dL (6.4-8.2); Triglyceride 51 mg/dL (<150)
== END 2024-10-19 09:57 | disposition home or self-care (01) ==
LOC: NCHCN 09:56
PROVIDERS: PCP Nurse Practitioner Family; Visit Provider Nurse Practitioner Family
DX: E78.5 Hyperlipidemia, unspecified (principal); D64.9 Anemia, unspecified
CPT/HCPCS: 80053; 80061; 82728; 83036; 83540; 83550; 84443; 85025

== ENCOUNTER 2024-10-30 01:59 | Outpatient (CLI) | payer MEDICARE, BC, SELFPAY ==
--- NOTE | 2024-10-30 | DI.CT_ITS ---
Exam(s) CT CHEST WO EXAM: CT CHEST WO CLINICAL HISTORY: SOLITARY PULM NODULE R91.1 TECHNIQUE: Imaging Protocol: Axial computed tomography images with coronal and sagittal reformatted images were created and reviewed. Computer aided detection (CAD) was utilized. CONTRAST MATERIAL: Noncontrast COMPARISON: CT CT CHEST/ABD/PEL W from 08/06/[address] CHEST PE CTA from 03/30/2023 FINDINGS: Pulmonary parenchyma: No consolidation. No suspicious mass. Stable 4 millimeter circumscribed nodul e is noted in the right upper lobe above the major fissure. Tracheobronchial tree: No bronchiectasis or mucous plugging. Mediastinum and Vijaya: No dominant adenopathy or fluid collection. Large hiatal hernia again noted Pleura: No effusion. No pneumothorax. Heart: The heart is not dilated. [id number] coronary artery calcifications are seen. Aorta: Thoracic aorta non-dilated. Mild atherosclerotic changes. Pulmonary arteries: No gross evidence of emboli. Upper abdomen: No acute findings. Bones: Scoliosis and degenerative changes in the spine. Soft tissues: Unremarkable. IMPRESSION: 4 millimeter nodule right upper lobe is stable when compared with 2019. RADIATION DOSE DELIVERED: 171.02mGy.cm Total DLP DATA REPOSITORY: All CT scans at this facility are submitted to the National Radiology Data Registry (NRDR) Dose Index Registry (DIR) with the [employer] ([employer]). RADIATION OPTIMIZATION: All CT scans at this facility use at least one of these dose optimization te chniques: automated exposure control; mA and/or kV adjustment per patient size (includes targeted exa ms where dose is matched to clinical indication); or iterative reconstruction.
== END 2024-10-30 02:19 ==
LOC: DI 02:00
PROVIDERS: PCP Nurse Practitioner Family; Visit Provider Nurse Practitioner Family
DX: R91.1 Solitary pulmonary nodule (principal)
CPT/HCPCS: 71250

== ENCOUNTER → 2024-12-31 09:30 | Outpatient (BNVA) | payer MEDICARE, BC, SELFPAY | PROVIDERS: PCP Nurse Practitioner Family; Referring Provider Nurse Practitioner Family; Visit Provider Physician Assistant Surgical | DX: J45.909 Unspecified asthma, uncomplicated (principal) | CPT/HCPCS: 99214 ==

== ENCOUNTER 2025-04-17 14:52 | Outpatient (REF) | payer MEDICARE, BC, SELFPAY ==
[2025-04-17 14:28] LABS: Abs Immature Grans 0.01 10^3/uL (0.0-0.06); HCT 42.5 % (36.0-46.0); HGB 14.1 g/dL (11.2-15.7); Immature Grans % 0.2 %; MCH 31.3 pg (27.0-33.0); MCHC 33.2 % (32.0-36.0); MCV 94 fL (80-95); MPV 9.9 fL (8.0-11.0); Platelet Count 322 10^3/uL (130-400); RBC 4.51 10^6/uL (3.93-5.22); RDW 12.7 % (11.7-14.6); RDW-SD 43.8 fL; WBC 6.26 10^3/uL (4.4-10.8)
[2025-04-17 15:31] LABS: Calculated LDL 58 mg/dL (<100); Cholesterol 137 mg/dL (<200); HDL Cholesterol 70 mg/dL (>or=50); Triglyceride 46 mg/dL (<150)
[2025-04-17 22:53] LABS: Total Protein 7.1 g/dL (6.3-8.2)
[2025-04-18 14:09] LABS: Albumin 59.4 % (55.8-66.1); Albumin g/dL 4.2 g/dL (3.6-5.2); Alpha 1 g/dL 0.30 g/dL (0.15-0.40); Alpha 2 g/dL 0.70 g/dL (0.50-1.00); Beta g/dL 0.90 g/dL (0.60-1.20); Gamma g/dL 1.10 g/dL (0.60-1.60)
== END 2025-04-17 14:53 | disposition home or self-care (01) ==
LOC: NCHCN 14:52
PROVIDERS: PCP Nurse Practitioner Family; Visit Provider Nurse Practitioner Family
DX: E78.5 Hyperlipidemia, unspecified (principal); D64.9 Anemia, unspecified
CPT/HCPCS: 80061; 84165; 85025

== ENCOUNTER 2025-04-29 03:19 | Outpatient (CLI) | payer MEDICARE, BC, SELFPAY ==
--- NOTE | 2025-04-29 | DI.MAMMO_ITS ---
Exam(s) MAMMO SCREENING EXAM: MAMMO SCREENING CLINICAL HISTORY: Screening, Z12.31 TECHNIQUE: Bilateral full field digital CC and MLO mammographic images were obtained with 3D tomosynthesis and utilizing computer aided detection (CAD). COMPARISON: Comparison is made with prior examinations. FINDINGS: Masses/Architectural Distortion: No suspicious masses or areas of architectural distortion are present. Microcalcifications: No suspicious pleomorphic-type are seen. Skin Thickening/Nipple Retraction: None. IMPRESSION: 1. No significant interval change with no specific features of malignancy noted. 2. Unless there is more urgent need, screening mammography is recommended, as per [employer] guidelines. BI-RADS Category 1 - Negative Breast Density - Category B - There are scattered areas of fibroglandular density. Breast density Category C or D implies that the patient has dense breast tissue. Dense breast tissue can make it harder to find cancer on a mammogram. Dense breast tissue is also associated with an increased risk of breast cancer. This information about the result of the mammogram report was provided to the patient to raise their awareness. Use this report when you speak with the patient about their risks for breast cancer, which includes their family history. At that time, you may recommend additional screening tests (Ultrasound or MRI) as these tests may add significant information. A negative radiographic report should not delay biopsy if a dominant or clinically suspicious mass is present. Up to ten percent of cancers are not identified on mammography. A negative report may reinforce clinical impression. Adenosis and dense breasts may obscure an underlying neoplasm. False positive reports average 6 to 10%. Patient will receive a letter notifying them of these results.
== END 2025-04-29 03:39 ==
LOC: DI 03:19
PROVIDERS: PCP Nurse Practitioner Family; Visit Provider Nurse Practitioner Family
DX: Z12.31 Encounter for screening mammogram for malignant neoplasm of breast (principal); R92.323 Mammographic fibroglandular density, bilateral breasts
CPT/HCPCS: 77063; 77067